=== PATIENT | female | born 1965 | race Hispanic/Latino ===

== ENCOUNTER 2017-08-04 22:00 | Emergency (ER) | payer BC ==
[~2017-08-04 22:00] MED LIST: CHOL500050 PO; CLON0.5T4 PO; FLUO40CA7 PO; FURO20TA4 PO; LETR2.5T6 PO; LEVO150T11 PO; LISI10TA7 PO; LORA10TA7 PO; METF500T6 PO; PREG50 PO
[2017-08-04 22:24] LABS: BASOPHILS % (AUTO) 0.7 % (0.0-5.0); EOSINOPHILS % (AUTO) 3.9 % (0.0-8.0); HEMATOCRIT 28.1 % (36-48); LYMPHOCYTES % (AUTO) 34.3 % (21.0-51.0); MEAN CORPUSCULAR HEMOGLOBIN 33.3 pg (27.0-33.0); MEAN CORPUSCULAR HGB CONC 35.6 g/dL (32.0-36.0); MEAN CORPUSCULAR VOLUME 93.5 fL (79-99); MONOCYTES % (AUTO) 9.8 % (3.0-13.0); NEUTROPHILS % (AUTO) 51.3 % (40.0-77.0); PLATELET COUNT (AUTO) 91 K/uL (130-400); RED CELL DISTRIBUTION WIDTH 14.6 % (11.0-15.5)
[2017-08-04 22:29] LABS: CREATININE 0.7 mg/dL (0.5-1.5); POTASSIUM 3.5 mmol/L (3.5-5.1)
[2017-08-04 22:30] LABS: INR 1.19 (0.85-1.15); PARTIAL THROMBOPLASTIN TIME 25.6 SEC (26.3-35.5); PROTHROMBIN TIME 12.5 SEC (9.6-11.6)
[2017-08-04] MEDS ORDERED: MAG HYDROX/AL HYDROX/SIMETH ES 30 ML SUSP UDCUP ONE (22:32)
[2017-08-04] MEDS ORDERED: LIDOCAINE HCL 2% VISCOUS 15 ML UDCUP ONE (22:32)
[2017-08-04] MEDS ORDERED: SODIUM CHLORIDE 0.9% 1000ML 1,000 ML IV ONE (22:32)
[2017-08-04 22:43] LABS: ALBUMIN 2.6 g/dL (3.5-5.0); BILIRUBIN,TOTAL 1.7 mg/dL (0.2-1.0); CREATINE KINASE MB 0.5 ng/mL (0.5-3.6); TOTAL PROTEIN, SERUM 6.9 g/dL (6.0-8.3)
[2017-08-04] MEDS ORDERED: ASPIRIN 325 MG TABLET ONE (22:55)
== END 2017-08-05 00:53 | disposition home or self-care (01) ==
LOC: EDH 22:00
DX: K21.9 Gastro-esophageal reflux disease without esophagitis (principal); K29.70 Gastritis, unspecified, without bleeding; M79.7 Fibromyalgia; M32.9 Systemic lupus erythematosus, unspecified; Z88.6 Allergy status to analgesic agent; Z85.3 Personal history of malignant neoplasm of breast; Z90.710 Acquired absence of both cervix and uterus
CPT/HCPCS: 36415; 71045; 80053; 82550; 82553; 83874; 83880; 84484 ×2; 85025; 85610; 85730; 93005; 94761; 96360; 96361; 99285; J7030

== ENCOUNTER 2019-06-14 20:59 | Inpatient (IN) | payer OTHER ==
[~2019-06-14] VITALS: Ht 167.6 cm; Wt 108.8 kg
[~2019-06-14 20:59] MED LIST changes: -CHOL500050 PO; -CLON0.5T4 PO; -FLUO40CA7 PO; -FURO20TA4 PO; -LETR2.5T6 PO; -LISI10TA7 PO; -LORA10TA7 PO; -METF500T6 PO; +PANT40TA PO; -PREG50 PO; +SUCR1TAB2 PO
[2019-06-14 21:26] LABS: BASOPHILS % (AUTO) 0.7 % (0.0-5.0); EOSINOPHILS % (AUTO) 3.7 % (0.0-8.0); LYMPHOCYTES % (AUTO) 27.1 % (21.0-51.0); MEAN CORPUSCULAR HEMOGLOBIN 32.7 pg (27.0-33.0); MEAN CORPUSCULAR HGB CONC 33.9 g/dL (32.0-36.0); MEAN CORPUSCULAR VOLUME 96.5 fL (79-99); MONOCYTES % (AUTO) 9.8 % (3.0-13.0); NEUTROPHILS % (AUTO) 58.5 % (40.0-77.0); PLATELET COUNT (AUTO) 57 K/uL (130-400); RED BLOOD CELL COUNT(AUTO) 3.73 MIL/uL (4.00-5.50); RED CELL DISTRIBUTION WIDTH 16.4 % (11.0-15.5); WHITE BLOOD COUNT (AUTO) 4.1 K/uL (4.8-10.8)
[2019-06-14 21:39] LABS: INR 1.19 (0.85-1.15); PARTIAL THROMBOPLASTIN TIME 28.1 SEC (26.3-35.5); PROTHROMBIN TIME 12.4 SEC (9.6-11.6)
[2019-06-14 21:53] LABS: CARBON DIOXIDE 22 mmol/L (21-32); CHLORIDE 109 mmol/L (101-111); CREATININE 0.7 mg/dL (0.5-1.5); GLOMERULAR FILTR. RATE CALC 92 mL/min (>60); GLUCOSE,RANDOM 147 mg/dL (70-105); POTASSIUM 3.5 mmol/L (3.5-5.1); SODIUM SERUM 142 mmol/L (136-145); UREA NITROGEN, BLOOD 10 mg/dL (7-18)
[2019-06-14 21:57] LABS: ALANINE AMINOTRANSFERASE 29 U/L (12-78); ALBUMIN 2.9 g/dL (3.5-5.0); ALCOHOL, BLOOD < 3 mg/dL (0-10); ASPARTATE AMINOTRANSFERASE 56 U/L (10-37); BILIRUBIN,TOTAL 3.4 mg/dL (0.2-1.0); CREATINE KINASE, TOTAL 190 U/L (21-232); LDL DIRECT 65 mg/dL (0-99); TOTAL PROTEIN, SERUM 7.2 g/dL (6.0-8.3)
[2019-06-14 22:08] LABS: APPEARANCE,URINE Cloudy (CLEAR); BILIRUBIN,URINE Small (NEGATIVE); COLOR,URINE Dark Yellow (YELLOW); GLUCOSE, URINE (UA) Negative (NEGATIVE); KETONES,URINE Trace mg/dL (NEGATIVE); LEUKOCYTE ESTERASE ,URINE Small (NEGATIVE); NITRATE,URINE Negative (NEGATIVE); OCCULT BLOOD,URINE Negative (NEGATIVE); PH,URINE 5.5 (5.0-8.0); PROTEIN,URINE Negative (NEGATIVE)
[2019-06-14 22:22] LABS: BACTERIA,URINE Moderate /HPF (None Seen); RBC,URINE 0-1 /HPF (0-1); WBC,URINE 0-1 /HPF (0-1)
[2019-06-14 22:23] LABS: MUCUS,URINE Few LPF (None Seen)
[2019-06-14 22:39] LABS: AMPHET/METH SCREEN,URINE NEGATIVE (NEGATIVE); BARBITURATE SCREEN, URINE NEGATIVE (NEGATIVE); BENZODIAZEPINES SCREEN,URINE NEGATIVE (NEGATIVE); CANNABINOID SCREEN,URINE NEGATIVE (NEGATIVE); COCAINE SCREEN,URINE NEGATIVE (NEGATIVE); OPIATE SCREEN,URINE NEGATIVE (NEGATIVE); PHENCYCLIDINE SCREEN,URINE NEGATIVE (NEGATIVE)
[2019-06-14] MEDS ORDERED: LACTULOSE 20 GM/30 ML UDCUP ONE (22:59)
[2019-06-15] VITALS (7 sets, daily range): BP systolic 124–155; BP diastolic 49–75
[2019-06-15] MEDS ORDERED: LACTULOSE 20 GM/30 ML UDCUP PO PRN
[2019-06-15] MEDS ORDERED: CEFTRIAXONE SODIUM 1 GM ONE (00:11)
[2019-06-15] MEDS ORDERED: LACTATED RINGERS 1000ML 1,000 ML IV ONE (00:11)
[2019-06-15] MEDS: LACTATED RINGERS 1000ML 1,000 ML IV SCH ×2 (06:26→20:57)
[2019-06-15 07:26] LABS: BASOPHILS % (AUTO) 0.9 % (0.0-5.0); EOSINOPHILS % (AUTO) 4.5 % (0.0-8.0); HEMATOCRIT 32.3 % (36-48); LYMPHOCYTES % (AUTO) 35.6 % (21.0-51.0); MEAN CORPUSCULAR HGB CONC 33.7 g/dL (32.0-36.0); MEAN CORPUSCULAR VOLUME 97.9 fL (79-99); MONOCYTES % (AUTO) 12.9 % (3.0-13.0); NEUTROPHILS % (AUTO) 45.8 % (40.0-77.0); PLATELET COUNT (AUTO) 47 K/uL (130-400); RED CELL DISTRIBUTION WIDTH 16.3 % (11.0-15.5); WHITE BLOOD COUNT (AUTO) 3.3 K/uL (4.8-10.8)
[2019-06-15] MEDS ORDERED: FLU VACC QS2019-20 36MOS UP/PF 60 MCG/0.5 ML ML IM ONE (07:30)
[2019-06-15 07:40] LABS: ALANINE AMINOTRANSFERASE 25 U/L (12-78); ALBUMIN 2.6 g/dL (3.5-5.0); ASPARTATE AMINOTRANSFERASE 47 U/L (10-37); BILIRUBIN,TOTAL 3.1 mg/dL (0.2-1.0); CARBON DIOXIDE 24 mmol/L (21-32); CHLORIDE 110 mmol/L (101-111); CHOLESTEROL 113 mg/dL (<200); CREATININE 0.6 mg/dL (0.5-1.5); GLOMERULAR FILTR. RATE CALC 110 mL/min (>60); GLUCOSE,RANDOM 84 mg/dL (70-105); HDL CHOLESTEROL 65 mg/dL (35-85); LDL DIRECT 57 mg/dL (0-99); POTASSIUM 3.1 mmol/L (3.5-5.1); SODIUM SERUM 144 mmol/L (136-145); TOTAL PROTEIN, SERUM 6.3 g/dL (6.0-8.3); TRIGLYCERIDES 27 mg/dL (30-200); UREA NITROGEN, BLOOD 9 mg/dL (7-18)
[2019-06-15] MEDS ORDERED: FLU VACC QS2019-20 36MOS UP/PF 60 MCG/0.5 ML ML IM SCH (07:45)
[2019-06-15 07:49] LABS: AMMONIA 86 umol/L (11-32)
[2019-06-15 08:22] LABS: HEMOGLOBIN A1C 4.4 % (4.0-6.0)
[2019-06-15] MEDS ORDERED: FAMOTIDINE/PF 20 MG/2 ML VIAL IV SCH (09:00)
[2019-06-15] MEDS: PANTOPRAZOLE SODIUM 40 MG TABLET.DR PO SCH (16:21)
[2019-06-15] MEDS: LACTULOSE 20 GM/30 ML UDCUP PO SCH ×3 (16:21→23:36)
[2019-06-15] MEDS: CEFTRIAXONE SODIUM 1 GM IVP SCH ×3 (16:21→23:36)
[2019-06-15] MEDS ORDERED: IOHEXOL-350 75 ML VIAL IV ONE (19:30)
[2019-06-15] MEDS ORDERED: IOHEXOL-350 50ML VIAL IV ONE (19:32)
[2019-06-15] MEDS ORDERED: POTASSIUM CHLORIDE 20 MEQ ERTAB PO ONE (21:04)
[2019-06-15] MEDS ORDERED: LIDOCAINE HCL-MPF 1% 2ML VIAL IV PRN (21:15)
[2019-06-15] MEDS ORDERED: POTASSIUM CHLORIDE 10% ELIXIR 20 MEQ/15 ML UDCUP PO PRN (21:15)
[2019-06-15] MEDS ORDERED: POTASSIUM CHLORIDE 20MEQ/100ML 100 ML IV PRN (21:15)
[2019-06-15] MEDS: POTASSIUM CHLORIDE 20 MEQ ERTAB PO PRN (23:36)
[2019-06-16] MEDS: POTASSIUM CHLORIDE 20 MEQ ERTAB PO PRN (01:10)
[2019-06-16] MEDS: LACTULOSE 20 GM/30 ML UDCUP PO SCH ×6 (03:30→23:38)
[2019-06-16 03:47] VITALS: BP 121/65
[2019-06-16 05:17] LABS: INR 1.26 (0.85-1.15); PARTIAL THROMBOPLASTIN TIME 30.8 SEC (26.3-35.5); PROTHROMBIN TIME 13.1 SEC (9.6-11.6)
[2019-06-16 05:29] LABS: ALBUMIN 2.4 g/dL (3.5-5.0); BILIRUBIN,TOTAL 3.2 mg/dL (0.2-1.0); CREATININE 0.6 mg/dL (0.5-1.5); POTASSIUM 3.6 mmol/L (3.5-5.1)
[2019-06-16 05:32] LABS: % IRON SATURATION 40.2 % (22-44)
[2019-06-16 05:36] LABS: AMMONIA 53 umol/L (11-32); CHOLESTEROL 103 mg/dL (<200); HDL CHOLESTEROL 89 mg/dL (35-85); LDL DIRECT 55 mg/dL (0-99); LIPASE 71 U/L (114-286); PHOSPHORUS 6.2 mg/dL (2.5-4.9); THYROID STIMULATING HORMONE 3.86 uIU/mL (0.36-3.74); TRIGLYCERIDES 26 mg/dL (30-200)
[2019-06-16 05:43] LABS: HEMOGLOBIN A1C 4.5 % (4.0-6.0)
[2019-06-16 05:47] LABS: B-TYPE NATRIURETIC PEPTIDE 26 pg/mL (0-100)
[2019-06-16 06:36] LABS: ERYTHROCYTE SEDIMENTATION RATE 30 MM/HR (0-30)
[2019-06-16 07:38] LABS: RAPID PLASMA REAGIN NONREACTIVE (NONREACTIVE)
[2019-06-16 07:39] LABS: CRP QUANTITATIVE < 2.00 mg/L (0.00-9.0)
[2019-06-16 07:55] VITALS: BP 132/66
--- NOTE | 2019-06-16 08:00 | NUR ---
PT AAOX 3 REVIEW PLAN OF CARE, DENIES ANY DISCOMFORT. BED LEVEL DOWN ,AND CALL LIGHT IN REACH,,
[2019-06-16] MEDS: PANTOPRAZOLE SODIUM 40 MG TABLET.DR PO SCH (08:05)
[2019-06-16 11:38] VITALS: BP 125/71
[2019-06-16] MEDS: CEFTRIAXONE SODIUM 1 GM IVP SCH (14:46)
[2019-06-16] MEDS: LACTATED RINGERS 1000ML 1,000 ML IV SCH ×2 (16:00→22:45)
[2019-06-16 16:21] VITALS: BP 127/68
--- NOTE | 2019-06-16 17:30 | NUR ---
cm note met with patient and spouse, lives with spouse, is independent with ambulation and adls, no dme. no home services. goes to [facility].for md, recently lost insurance due to no longer working, referred to [employer] for assist. and rx assist card given. dc plan is back home at co. no dc needs. Addendum: 06/16/19 at 1734 by DA GROVE CM Amended: Links added.
[2019-06-16 19:45] VITALS: BP 114/59
[2019-06-16 23:22] VITALS: BP 129/63
--- NOTE | 2019-06-17 00:01 | NUR ---
Telemetry called: Patient on Sinus Rhythm with pulse 72.
[2019-06-17] MEDS: CEFTRIAXONE SODIUM 1 GM IVP SCH ×2 (00:09→14:37)
[2019-06-17] MEDS ORDERED: IBUPROFEN 200 MG TAB PO ONE (00:30)
[2019-06-17] MEDS ORDERED: IBUPROFEN 400 MG TABLET ONE (00:44)
[2019-06-17 03:06] VITALS: BP 112/68
[2019-06-17] MEDS: LACTULOSE 20 GM/30 ML UDCUP PO SCH ×5 (03:49→20:30)
[2019-06-17 07:55] VITALS: BP 124/58
[2019-06-17] MEDS: PANTOPRAZOLE SODIUM 40 MG TABLET.DR PO SCH (08:06)
--- NOTE | 2019-06-17 09:50 | NUR ---
DR. SAHA HERE AND REVIEW PT. STATUS, . SPOKE WITH PT REAGARDING HER HISTORY AND CARE,
--- NOTE | 2019-06-17 09:55 | NUR ---
DR. ANN WAS CALLED , FOR THE GI CONSULTATION FOR HER LIVER STATUS.
[2019-06-17 11:29] VITALS: BP 112/52
--- NOTE | 2019-06-17 14:04 | NUR ---
CHART CHECK COMPLETED. Pt CURRENTLY ADMITTED SECONDARY TO HEPATIC ENCEPHALOPATHY R/O ACUTE ISCHEMIC STROKE. Pt WITH HIGH AMONIA LEVEL. Pt HAS A PAST MEDICAL HISTORY SIGNIFICANT FOR BREAST CA, FIBROMYALGIA, LUPUS, LEFT MASTECTOMY, HYPOTHYROIDISM, DEPRESSIVE DISORDER. PLEASE REQUEST FORMAL SKILLED SPEECH THERAPY EVALUATION IF Pt PRESENTS WITH +S/S OF ASPIRATION OF COUGH RESPONSE OR WET VOCAL QUALITY AT MEAL TIMES. Addendum: 06/17/19 at 1409 by YANICK VELA, [facility] Amended: Links added.
[2019-06-17 16:24] VITALS: BP 115/52
[2019-06-17 20:00] VITALS: BP 116/51
[2019-06-17] MEDS: LACTATED RINGERS 1000ML 1,000 ML IV SCH (20:30)
--- NOTE | 2019-06-17 23:29 | NUR ---
GI CONSULT DR. ANN MADE AWARE OF CONSULT AND SAW PATIENT. MD ORDERED FOR PATIENT TO HAVE EGD 06/18/2019, NPO AFTER BREAKFAST, VITAMIN B12, AND IRON PANEL.
[2019-06-18] VITALS (27 sets, daily range): BP systolic 90–122; BP diastolic 35–73
[2019-06-18] MEDS: LACTULOSE 20 GM/30 ML UDCUP PO SCH ×6 (00:03→23:30)
[2019-06-18] MEDS: CEFTRIAXONE SODIUM 1 GM IVP SCH ×2 (01:14→12:52)
[2019-06-18 05:04] LABS: BASOPHILS % (AUTO) 0.9 % (0.0-5.0); LYMPHOCYTES % (AUTO) 28.1 % (21.0-51.0); MEAN CORPUSCULAR HEMOGLOBIN 32.9 pg (27.0-33.0); MEAN CORPUSCULAR HGB CONC 33.5 g/dL (32.0-36.0); MEAN CORPUSCULAR VOLUME 98.1 fL (79-99); MONOCYTES % (AUTO) 10.2 % (3.0-13.0); NEUTROPHILS % (AUTO) 55.5 % (40.0-77.0); PLATELET COUNT (AUTO) 56 K/uL (130-400); RED BLOOD CELL COUNT(AUTO) 3.77 MIL/uL (4.00-5.50); RED CELL DISTRIBUTION WIDTH 16.2 % (11.0-15.5); WHITE BLOOD COUNT (AUTO) 3.4 K/uL (4.8-10.8)
[2019-06-18 05:16] LABS: ALANINE AMINOTRANSFERASE 33 U/L (12-78); ALBUMIN 3.1 g/dL (3.5-5.0); AMMONIA 35 umol/L (11-32); ASPARTATE AMINOTRANSFERASE 65 U/L (10-37); BILIRUBIN,TOTAL 3.2 mg/dL (0.2-1.0); CARBON DIOXIDE 27 mmol/L (21-32); CHLORIDE 106 mmol/L (101-111); CREATININE 0.7 mg/dL (0.5-1.5); GLOMERULAR FILTR. RATE CALC 92 mL/min (>60); GLUCOSE,RANDOM 88 mg/dL (70-105); PHOSPHORUS 3.9 mg/dL (2.5-4.9); POTASSIUM 3.4 mmol/L (3.5-5.1); SODIUM SERUM 140 mmol/L (136-145); UREA NITROGEN, BLOOD 5 mg/dL (7-18)
[2019-06-18 05:19] LABS: INR 1.72 (0.85-1.15); PARTIAL THROMBOPLASTIN TIME 48.1 SEC (26.3-35.5); PROTHROMBIN TIME 17.7 SEC (9.6-11.6)
[2019-06-18 05:34] LABS: FERRITIN 54 ng/mL (15-150); IRON, SERUM 120 mcg/dL (50-170)
[2019-06-18] MEDS: POTASSIUM CHLORIDE 20 MEQ ERTAB PO PRN (07:25)
[2019-06-18] MEDS: PANTOPRAZOLE SODIUM 40 MG TABLET.DR PO SCH (07:29)
[2019-06-18 08:11] LABS: HEPATITIS A ANTIBODY IGM Negative (Negative); HEPATITIS B CORE IGM Negative (Negative); HEPATITIS Bs ANTIGEN SCREEN P Negative (Negative)
--- NOTE | 2019-06-18 12:53 | NUR ---
TO GI LAB FOR A EGD PROCEDURE,
[2019-06-18] MEDS ORDERED: PROPOFOL 10 MG/ML 20ML VIAL IV ONE ×3 (14:05→14:14)
--- NOTE | 2019-06-18 15:00 | NUR ---
PT BACK FROM GI LAB, PTAAO X 3 REVIEW POSTOP V/S AND ORDERS TO FOLLOW HOB UP .PT HUNGRY ORDER DIET. AND CALL LIGHT IN REACH ,DENIES ANY GASTRIC PAIN,
--- NOTE | 2019-06-18 17:30 | NUR ---
TOLERATE DIET WELL , DENIES ANY DISCOMFORT. CALL LIGHT IN REACH.
[2019-06-19] VITALS: BP 120/57
[2019-06-19] MEDS: LACTULOSE 20 GM/30 ML UDCUP PO SCH ×4 (03:30→15:43)
[2019-06-19 03:53] VITALS: BP 123/63
[2019-06-19] MEDS: LACTATED RINGERS 1000ML 1,000 ML IV SCH (04:00)
[2019-06-19 08:00] VITALS: BP 118/52
[2019-06-19] MEDS: PANTOPRAZOLE SODIUM 40 MG TABLET.DR PO SCH (10:22)
[2019-06-19] MEDS: CEFTRIAXONE SODIUM 1 GM IVP SCH ×2 (10:27)
[2019-06-19 11:38] VITALS: BP 116/57
[2019-06-19] MEDS ORDERED: DEXTROSE 50%-WATER 50 ML DISP.SYRIN IV PRN (15:00)
[2019-06-19] MEDS ORDERED: GLUCAGON 1MG KIT 1 MG ML IM PRN (15:00)
[2019-06-19 16:00] VITALS: BP 131/65
[2019-06-19] MEDS ORDERED: INSULIN HUMULIN R 100 UNIT/ML 3ML SQ SCH (16:30)
--- NOTE | 2019-06-19 17:04 | NUR ---
PT D/C HOME BY ADMIT & D/C NURSE DANK PATIENT WHILE BEING D/C HOME WAS CALMED, NO DISTRESS, AAOX3. FEMALE FRIEND AT BEDSIDE.
== END 2019-06-19 16:50 | disposition home or self-care (01) | DRG 441 ==
LOC: EDH 20:59 → EDHIP 21:00 → 3AH 06-15 00:44
PROVIDERS: ADMIT Internal Medicine; ATTEND Internal Medicine
PROC: 0DJ08ZZ Inspection of Upper Intestinal Tract, Via Natural or Artificial Opening Endoscopic (ICD-10-PCS; principal; 2019-06-18)
PROC: 3E02340 Introduction of Influenza Vaccine into Muscle, Percutaneous Approach (ICD-10-PCS; 2019-06-18)
DX: K72.00 Acute and subacute hepatic failure without coma (principal); K31.82 Dieulafoy lesion (hemorrhagic) of stomach and duodenum; D62 Acute posthemorrhagic anemia; D68.4 Acquired coagulation factor deficiency; K74.60 Unspecified cirrhosis of liver; K76.0 Fatty (change of) liver, not elsewhere classified; M79.7 Fibromyalgia; E03.9 Hypothyroidism, unspecified; F32.9 Major depressive disorder, single episode, unspecified; D69.6 Thrombocytopenia, unspecified; E53.8 Deficiency of other specified B group vitamins; M32.9 Systemic lupus erythematosus, unspecified; K29.00 Acute gastritis without bleeding; K21.0 Gastro-esophageal reflux disease with esophagitis; Z92.21 Personal history of antineoplastic chemotherapy; Z85.3 Personal history of malignant neoplasm of breast; Z87.11 Personal history of peptic ulcer disease; Z90.12 Acquired absence of left breast and nipple; Z90.710 Acquired absence of both cervix and uterus; Z98.84 Bariatric surgery status; Z23 Encounter for immunization; Z83.3 Family history of diabetes mellitus; Z82.49 Family history of ischemic heart disease and other diseases of the circulatory system
CPT/HCPCS: 36415; 43255; 70450; 70551; 71045; 71260; 74177; 80053; 80061; 80074; 80305; 81001; 82103; 82104; 82140; 82270; 82550; 82607; 82728; 82948; 83036; 83516; 83540; 83550; 83605; 83690; 83721; 83735; 83880; 84100; 84145; 84443; 84484; 85025; 85610; 85651; 85730; 86038; 86140; 86215; 86235; 86255; 86592; 86677; 86701; 87390; 93005; 93306; 99291; A4606; G0378; G0480; J0696; J2704; J3490; J7030; J7120; Q2035; Q9967

== ENCOUNTER 2019-07-15 15:31 | Inpatient (IN) | payer OTHER ==
[~2019-07-15] VITALS: Ht 167.6 cm; Wt 112.0 kg
[2019-07-15] MEDS ORDERED: ASPIRIN 325 MG TABLET ONE (16:04)
[2019-07-15 16:10] LABS: BASOPHILS % (AUTO) 0.7 % (0.0-5.0); EOSINOPHILS % (AUTO) 5.2 % (0.0-8.0); HEMATOCRIT 28.9 % (36-48); LYMPHOCYTES % (AUTO) 24.5 % (21.0-51.0); MEAN CORPUSCULAR HEMOGLOBIN 32.6 pg (27.0-33.0); MEAN CORPUSCULAR HGB CONC 32.9 g/dL (32.0-36.0); MEAN CORPUSCULAR VOLUME 99.3 fL (79-99); MONOCYTES % (AUTO) 10.8 % (3.0-13.0); NEUTROPHILS % (AUTO) 58.8 % (40.0-77.0); PLATELET COUNT (AUTO) 65 K/uL (130-400); RED BLOOD CELL COUNT(AUTO) 2.91 MIL/uL (4.00-5.50); RED CELL DISTRIBUTION WIDTH 15.2 % (11.0-15.5); WHITE BLOOD COUNT (AUTO) 3.1 K/uL (4.8-10.8)
[2019-07-15 16:19] LABS: CREATININE 0.8 mg/dL (0.5-1.5); POTASSIUM 3.7 mmol/L (3.5-5.1)
[2019-07-15 16:24] LABS: ALBUMIN 2.4 g/dL (3.5-5.0); TOTAL PROTEIN, SERUM 6.3 g/dL (6.0-8.3)
[2019-07-15 16:51] LABS: B-TYPE NATRIURETIC PEPTIDE 132 pg/mL (0-100)
[2019-07-15] MEDS ORDERED: LACTULOSE 20 GM/30 ML UDCUP ONE (17:16)
[2019-07-15] MEDS ORDERED: NITROGLYCERIN 0.4 MG SL TAB SL PRN (17:45)
[2019-07-15] MEDS ORDERED: HYDRALAZINE HCL 20 MG/ML VIAL IV PRN (17:45)
[2019-07-15] MEDS ORDERED: ACETAMINOPHEN 325 MG TAB PO PRN (17:45)
[2019-07-15] MEDS ORDERED: ONDANSETRON HCL 4 MG/2 ML VIAL IV PRN (17:45)
[2019-07-15 17:57] LABS: APPEARANCE,URINE Clear (CLEAR); BILIRUBIN,URINE Negative (NEGATIVE); COLOR,URINE Yellow (YELLOW); GLUCOSE, URINE (UA) Negative (NEGATIVE); KETONES,URINE Negative (NEGATIVE); LEUKOCYTE ESTERASE ,URINE Negative (NEGATIVE); NITRATE,URINE Negative (NEGATIVE); OCCULT BLOOD,URINE Negative (NEGATIVE); PH,URINE 5.5 (5.0-8.0); PROTEIN,URINE Negative (NEGATIVE)
[2019-07-15 18:21] LABS: AMPHET/METH SCREEN,URINE NEGATIVE (NEGATIVE); BARBITURATE SCREEN, URINE NEGATIVE (NEGATIVE); BENZODIAZEPINES SCREEN,URINE NEGATIVE (NEGATIVE); CANNABINOID SCREEN,URINE NEGATIVE (NEGATIVE); COCAINE SCREEN,URINE NEGATIVE (NEGATIVE); OPIATE SCREEN,URINE NEGATIVE (NEGATIVE); PHENCYCLIDINE SCREEN,URINE NEGATIVE (NEGATIVE)
[2019-07-15] MEDS ORDERED: ONDANSETRON HCL 4 MG/2 ML VIAL IVP PRN (18:30)
[2019-07-15 20:36] LABS: CHOLESTEROL 89 mg/dL (<200); CREATINE KINASE, TOTAL 45 U/L (21-232); HDL CHOLESTEROL 58 mg/dL (35-85); LDL DIRECT 46 mg/dL (0-99); MYOGLOBIN 32 ng/mL (10-92); TRIGLYCERIDES 31 mg/dL (30-200); TROPONIN I < 0.04 ng/mL (0.00-0.06)
[2019-07-15] MEDS ORDERED: LACTULOSE 20 GM/30 ML UDCUP PO SCH (21:00)
[2019-07-16] MEDS ORDERED: ATORVASTATIN CALCIUM 40 MG TABLET ONE (00:04)
[2019-07-16] MEDS ORDERED: ACETAMINOPHEN 325 MG TAB ONE (00:04)
[2019-07-16] MEDS ORDERED: DEXTROSE 5%-LACTATED RINGERS 1,000 ML IV ONE (04:09)
[2019-07-16 05:27] LABS: HEMATOCRIT 26.9 % (36-48); MEAN CORPUSCULAR HGB CONC 33.5 g/dL (32.0-36.0); MEAN CORPUSCULAR VOLUME 98.5 fL (79-99); PLATELET COUNT (AUTO) 60 K/uL (130-400); RED BLOOD CELL COUNT(AUTO) 2.73 MIL/uL (4.00-5.50); RED CELL DISTRIBUTION WIDTH 15.2 % (11.0-15.5); WHITE BLOOD COUNT (AUTO) 3.3 K/uL (4.8-10.8)
[2019-07-16 05:53] LABS: CARBON DIOXIDE 24 mmol/L (21-32); CHLORIDE 113 mmol/L (101-111); CHOLESTEROL 77 mg/dL (<200); CREATINE KINASE, TOTAL 113 U/L (21-232); CREATININE 0.8 mg/dL (0.5-1.5); GLOMERULAR FILTR. RATE CALC 79 mL/min (>60); GLUCOSE,RANDOM 88 mg/dL (70-105); HDL CHOLESTEROL 43 mg/dL (35-85); LDL DIRECT 39 mg/dL (0-99); MYOGLOBIN 43 ng/mL (10-92); POTASSIUM 3.4 mmol/L (3.5-5.1); SODIUM SERUM 143 mmol/L (136-145); TRIGLYCERIDES 29 mg/dL (30-200); TROPONIN I < 0.04 ng/mL (0.00-0.06); UREA NITROGEN, BLOOD 8 mg/dL (7-18)
[2019-07-16 06:04] LABS: AMMONIA 80 umol/L (11-32)
[2019-07-16] MEDS ORDERED: POTASSIUM CHLORIDE 10% ELIXIR 20 MEQ/15 ML UDCUP PO PRN (08:00)
[2019-07-16] MEDS ORDERED: LIDOCAINE HCL-MPF 1% 2ML VIAL IJ PRN (08:00)
[2019-07-16] MEDS ORDERED: POTASSIUM CHLORIDE 20MEQ/100ML 100 ML IV PRN (08:00)
[2019-07-16] MEDS ORDERED: METOPROLOL TARTRATE 25 MG TAB PO SCH (09:00)
[2019-07-16] MEDS ORDERED: PANTOPRAZOLE SODIUM 40 MG TABLET.DR ONE (09:09)
[2019-07-16] MEDS ORDERED: ASPIRIN 81MG TAB.CHEW ONE (09:09)
[2019-07-16] MEDS ORDERED: LACTULOSE 20 GM/30 ML UDCUP ONE (09:09)
[2019-07-16] MEDS ORDERED: CEFTRIAXONE SODIUM 1 GM ONE (09:09)
[2019-07-16 11:43] VITALS: BP 141/78
[2019-07-16] MEDS ORDERED: POTASSIUM CHLORIDE 20 MEQ ERTAB PO ONE (12:13)
[2019-07-16] MEDS: PANTOPRAZOLE 40 MG/VIAL IVP SCH (14:00)
[2019-07-16] MEDS: ATORVASTATIN CALCIUM 10 MG TABLET PO SCH ×2 (14:00→21:00)
[2019-07-16] MEDS: ASPIRIN 81MG TAB.CHEW PO SCH (14:00)
[2019-07-16] MEDS: CEFTRIAXONE SODIUM 1 GM IVP SCH ×2 (14:00→17:49)
[2019-07-16] MEDS: DEXTROSE 5%-LACTATED RINGERS 1,000 ML IV SCH ×2 (14:00→14:44)
[2019-07-16] MEDS: LEVOTHYROXINE 100 MCG TABLET PO SCH (14:00)
[2019-07-16] MEDS: LACTULOSE 20 GM/30 ML UDCUP PO SCH ×3 (14:00→20:57)
[2019-07-16 14:11] VITALS: BP 151/77
[2019-07-16] MEDS ORDERED: PREN-66 PO (14:19)
[2019-07-16] MEDS ORDERED: LACT10PA5 PO (14:19)
[2019-07-16] MEDS ORDERED: ASPI-555 PO (14:19)
[2019-07-16] MEDS ORDERED: METO25TA6 PO (14:39)
[2019-07-16] MEDS ORDERED: DULO30CA52 PO (14:39)
[2019-07-16] MEDS ORDERED: PANT40TA25 PO (14:39)
[2019-07-16] MEDS ORDERED: CYAN250014 PO (14:39)
[2019-07-16] MEDS ORDERED: ATOR40TA69 PO (14:39)
[2019-07-16 14:40] VITALS: BP 118/57
[2019-07-16] MEDS: POTASSIUM CHLORIDE 20 MEQ ERTAB PO PRN (14:43)
[2019-07-16 14:45] VITALS: BP 142/88
[2019-07-16 15:28] LABS: % IRON SATURATION 17.8 % (22-44)
--- NOTE | 2019-07-16 16:52 | NUR ---
INITIAL Patient lives with spouse, Audie Garza, [phone]. Another emergency contact is sister, Jazzy Mckeon, [phone]. No home services or DME. Patient requires assistance with ADL's and no longer drives. PCP is Dr. Pau Becerril. Pharmacy is [facility] located in [place]. DCP is home. Patient has no insurance or benefits. She is a [place] citizen and has worked. Patient was provided with community resources for post hospitalization follow up and Good RX card for prescriptions during last admission. Spouse stated they did not need another packet or Good RX card at this time. SW did educated spouse on [email or web address] $4 medication program and [facility] $5 medication program. Patient is being assisted by [employer] for financial matters. As per spouse, patient has appointment with [employer] for disability on 07/22/2019 at 9:30am. Addendum: 07/16/19 at 1653 by ALPHONSO RUGGIERO Amended: Links added.
[2019-07-16 20:04] VITALS: BP 115/60
[2019-07-16] MEDS: DULOXETINE HCL 30 MG CAP PO SCH (20:53)
[2019-07-16] MEDS: CYANOCOBALAMIN (VITAMIN B-12) 1,000 MCG TABLET PO SCH (20:53)
[2019-07-16] MEDS ORDERED: ATORVASTATIN CALCIUM 40 MG TABLET PO SCH (21:00)
[2019-07-16] MEDS ORDERED: DULOXETINE HCL 30 MG CAP PO SCH (21:00)
[2019-07-17] VITALS (7 sets, daily range): BP systolic 100–135; BP diastolic 49–80
[2019-07-17] MEDS: DEXTROSE 5%-LACTATED RINGERS 1,000 ML IV SCH ×2 (05:26→18:00)
[2019-07-17] MEDS: LEVOTHYROXINE 100 MCG TABLET PO SCH ×2 (05:27→05:52)
[2019-07-17] MEDS: CEFTRIAXONE SODIUM 1 GM IVP SCH ×2 (05:50→17:59)
[2019-07-17] MEDS ORDERED: LEVOTHYROXINE 150 MCG TABLET PO SCH (06:00)
[2019-07-17 06:55] LABS: CREATININE 0.7 mg/dL (0.5-1.5); MAGNESIUM 1.8 mg/dL (1.80-2.40); POTASSIUM 3.6 mmol/L (3.5-5.1)
[2019-07-17] MEDS: PANTOPRAZOLE 40 MG/VIAL IVP SCH (08:39)
[2019-07-17] MEDS: FERROUS FUMARATE 324 MG TABLET PO SCH (08:40)
[2019-07-17] MEDS: ASPIRIN 81 MG EC TAB PO SCH (08:40)
[2019-07-17] MEDS: CYANOCOBALAMIN (VITAMIN B-12) 1,000 MCG TABLET PO SCH ×2 (08:40→20:50)
[2019-07-17] MEDS: LACTULOSE 20 GM/30 ML UDCUP PO SCH ×3 (08:41→20:50)
[2019-07-17] MEDS: ASPIRIN 81MG TAB.CHEW PO SCH (08:41)
[2019-07-17] MEDS: ATORVASTATIN CALCIUM 10 MG TABLET PO SCH (20:50)
[2019-07-17] MEDS: DULOXETINE HCL 30 MG CAP PO SCH (20:50)
--- NOTE | 2019-07-17 22:30 | NUR ---
CHEST PAIN PATIENT COMPLAINS OF CHEST PAIN THAT RADIATES TO BACK WITH NAUSEA. MEDICATED PER MARS FOR NAUSEA AND CHEST PAIN. NITRO X1 GIVEN, EKG DONE. GHAZALA PROCTOR NOTIFIED AND AWARE. NEW ORDERS RECEIVED AND CARRIED OUT. VITALS STABLE. BLOOD PRESSURE 134/60, P75, R 19, AFEBRILE. CARDIAC ENZYMES DONE. PENDING RESULTS TO BE CALLED IN TO HOSPITALIST. PATIENT AWARE. NO FURTHER COMPLAINTS OF CHEST PAIN. WILL CONTINUE TO BE OBSERVED. CALL LIGHT WITHIN REACH. Addendum: 07/17/19 at 2307 by MILLY MONGE RN RN Amended: Links added.
[2019-07-17 23:24] LABS: CREATINE KINASE, TOTAL 117 U/L (21-232); MYOGLOBIN 33 ng/mL (10-92); TROPONIN I < 0.04 ng/mL (0.00-0.06)
--- NOTE | 2019-07-18 | NUR ---
ROUNDS PATIENT RESTING IN BED WITH OU CLOSED. EASILY AROUSED. NO COMPLAINTS OF PAIN AND OR CHEST PAIN. CARDIAC ENZYMES NEGATIVE AND REPORTED TO HOSPITALIST. PATIENT ALREADY ON A STATIN AND ASA EC. MARINE DRILLER IN PLACE. NORMAL SINUS RHYTHM. NO SIGNS OF DISTRESS NOTED. RESP EVEN AND UNLABORED. NO SOB NOTED. VITALS STABLE. AFEBRILE. CALL LIGHT WITHIN REACH. WILL CONTINUE TO BE OBSERVED. HOSPITALIST AWARE AND HERE TO SEE ALL RESULTS. NEW ORDERS RECEIVED AND CARRIED OUT. Addendum: 07/18/19 at 0724 by MILLY MONGE RN RN Amended: Links added.
[2019-07-18 03:30] VITALS: BP 113/50
[2019-07-18 05:43] LABS: CREATINE KINASE, TOTAL 110 U/L (21-232); MYOGLOBIN 38 ng/mL (10-92); TROPONIN I < 0.04 ng/mL (0.00-0.06)
[2019-07-18 05:45] LABS: BASOPHILS % (AUTO) 0.7 % (0.0-5.0); EOSINOPHILS % (AUTO) 5.5 % (0.0-8.0); LYMPHOCYTES % (AUTO) 24.6 % (21.0-51.0); MEAN CORPUSCULAR HGB CONC 32.6 g/dL (32.0-36.0); MEAN CORPUSCULAR VOLUME 98.2 fL (79-99); MONOCYTES % (AUTO) 11.4 % (3.0-13.0); NEUTROPHILS % (AUTO) 57.4 % (40.0-77.0); PLATELET COUNT (AUTO) 49 K/uL (130-400); RED BLOOD CELL COUNT(AUTO) 2.75 MIL/uL (4.00-5.50); WHITE BLOOD COUNT (AUTO) 2.7 K/uL (4.8-10.8)
[2019-07-18] MEDS: LEVOTHYROXINE 100 MCG TABLET PO SCH (05:56)
[2019-07-18] MEDS: CEFTRIAXONE SODIUM 1 GM IVP SCH ×2 (05:56→18:15)
[2019-07-18 06:39] LABS: CREATININE 0.8 mg/dL (0.5-1.5); POTASSIUM 3.7 mmol/L (3.5-5.1)
[2019-07-18] MEDS: DEXTROSE 5%-LACTATED RINGERS 1,000 ML IV SCH ×2 (08:06→23:30)
[2019-07-18 08:14] VITALS: BP 107/47
[2019-07-18 08:23] LABS: BAND NEUTROPHILS % (MANUAL) 1 % (0-2); BASOPHILS % (MANUAL) 1 % (0-2); EOSINOPHILS % (MANUAL) 8 % (1-6); LYMPHOCYTES % (MANUAL) 28 % (22-44); MONOCYTES % (MANUAL) 5 % (2-9); SEGMENTED NEUTROPHILS % 57 % (40-70)
[2019-07-18 08:24] LABS: MAN.DIFF COMMENT-IMPRESSION MANUAL DIFFERENTIAL
[2019-07-18] MEDS: ASPIRIN 81MG TAB.CHEW PO SCH (09:00)
[2019-07-18] MEDS: ASPIRIN 81 MG EC TAB PO SCH (09:05)
[2019-07-18] MEDS: LACTULOSE 20 GM/30 ML UDCUP PO SCH ×3 (09:05→20:48)
[2019-07-18] MEDS: FERROUS FUMARATE 324 MG TABLET PO SCH (09:05)
[2019-07-18] MEDS: PANTOPRAZOLE 40 MG/VIAL IVP SCH (09:05)
[2019-07-18] MEDS: CYANOCOBALAMIN (VITAMIN B-12) 1,000 MCG TABLET PO SCH ×2 (09:05→20:48)
[2019-07-18 11:29] VITALS: BP 122/54
[2019-07-18 16:27] VITALS: BP 115/58
[2019-07-18 19:24] VITALS: BP 120/50
[2019-07-18] MEDS: DULOXETINE HCL 30 MG CAP PO SCH (20:48)
[2019-07-18] MEDS: ATORVASTATIN CALCIUM 10 MG TABLET PO SCH (20:48)
[2019-07-18 23:21] VITALS: BP 110/50
--- NOTE | 2019-07-19 00:45 | NUR ---
ROUNDS PATIENT AWAKE AND ALERT IN BED TALKING ON CELLPHONE. NO COMPLAINTS OF PAIN VOICED. RESP EVEN AND UNLABORED. NO SOB NOTED. ON ROOM AIR. VITALS STABLE. AFEBRILE. IN GOOD SPIRITS. WILL CONTINUE TO BE OBSERVED. CALL LIGHT WITHIN REACH. Addendum: 07/19/19 at 0531 by MILLY MONGE RN RN Amended: Links added.
[2019-07-19 03:26] VITALS: BP 128/59
[2019-07-19] MEDS: CEFTRIAXONE SODIUM 1 GM IVP SCH ×2 (05:00→17:49)
[2019-07-19] MEDS: LEVOTHYROXINE 100 MCG TABLET PO SCH (05:00)
[2019-07-19 08:00] VITALS: BP 115/52
[2019-07-19 08:29] LABS: BASOPHILS % (AUTO) 0.9 % (0.0-5.0); EOSINOPHILS % (AUTO) 7.3 % (0.0-8.0); HEMATOCRIT 29.2 % (36-48); LYMPHOCYTES % (AUTO) 25.6 % (21.0-51.0); MEAN CORPUSCULAR HEMOGLOBIN 32.1 pg (27.0-33.0); MEAN CORPUSCULAR HGB CONC 32.2 g/dL (32.0-36.0); MEAN CORPUSCULAR VOLUME 99.7 fL (79-99); NEUTROPHILS % (AUTO) 57.2 % (40.0-77.0); PLATELET COUNT (AUTO) 44 K/uL (130-400); RED BLOOD CELL COUNT(AUTO) 2.93 MIL/uL (4.00-5.50); RED CELL DISTRIBUTION WIDTH 15.2 % (11.0-15.5); WHITE BLOOD COUNT (AUTO) 2.3 K/uL (4.8-10.8)
[2019-07-19 08:36] LABS: CREATININE 0.8 mg/dL (0.5-1.5); POTASSIUM 3.3 mmol/L (3.5-5.1)
[2019-07-19] MEDS: ASPIRIN 81 MG EC TAB PO SCH (09:00)
[2019-07-19] MEDS: CYANOCOBALAMIN (VITAMIN B-12) 1,000 MCG TABLET PO SCH ×2 (09:01→20:08)
[2019-07-19] MEDS: FERROUS FUMARATE 324 MG TABLET PO SCH (09:01)
[2019-07-19] MEDS: LACTULOSE 20 GM/30 ML UDCUP PO SCH ×3 (09:01→20:07)
[2019-07-19] MEDS: ASPIRIN 81MG TAB.CHEW PO SCH (09:01)
[2019-07-19] MEDS: PANTOPRAZOLE 40 MG/VIAL IVP SCH (09:01)
[2019-07-19 09:17] LABS: EOSINOPHILS % (MANUAL) 5 % (1-6); LYMPHOCYTES % (MANUAL) 21 % (22-44); MAN.DIFF COMMENT-IMPRESSION MANUAL DIFFERENTIAL; MONOCYTES % (MANUAL) 10 % (2-9); SEGMENTED NEUTROPHILS % 64 % (40-70)
[2019-07-19 09:20] LABS: PLATELET MORPHOLOGY COMMENT MARKED DECREASE
[2019-07-19 12:00] VITALS: BP 118/59
[2019-07-19] MEDS: POTASSIUM CHLORIDE 20 MEQ ERTAB PO PRN ×3 (12:00→20:08)
[2019-07-19 16:00] VITALS: BP 110/54
[2019-07-19 20:04] VITALS: BP 115/53
[2019-07-19] MEDS: DULOXETINE HCL 30 MG CAP PO SCH (20:08)
[2019-07-19] MEDS: ATORVASTATIN CALCIUM 10 MG TABLET PO SCH (20:08)
[2019-07-20 00:04] VITALS: BP 114/54
[2019-07-20] MEDS: DEXTROSE 5%-LACTATED RINGERS 1,000 ML IV SCH ×2 (01:23→21:14)
[2019-07-20 04:00] VITALS: BP 103/50
[2019-07-20] MEDS: CEFTRIAXONE SODIUM 1 GM IVP SCH ×2 (06:10→18:37)
[2019-07-20] MEDS: LEVOTHYROXINE 100 MCG TABLET PO SCH (06:11)
[2019-07-20 08:00] VITALS: BP 104/57
[2019-07-20] MEDS: PANTOPRAZOLE 40 MG/VIAL IVP SCH (08:03)
[2019-07-20] MEDS: ASPIRIN 81 MG EC TAB PO SCH (08:04)
[2019-07-20] MEDS: FERROUS FUMARATE 324 MG TABLET PO SCH (08:04)
[2019-07-20] MEDS: CYANOCOBALAMIN (VITAMIN B-12) 1,000 MCG TABLET PO SCH ×2 (08:04→21:11)
[2019-07-20] MEDS: ASPIRIN 81MG TAB.CHEW PO SCH (08:12)
[2019-07-20] MEDS: LACTULOSE 20 GM/30 ML UDCUP PO SCH ×3 (08:38→18:38)
[2019-07-20 09:06] LABS: CREATININE 0.7 mg/dL (0.5-1.5); MAGNESIUM 1.7 mg/dL (1.80-2.40); POTASSIUM 3.8 mmol/L (3.5-5.1)
[2019-07-20 12:00] VITALS: BP 114/63
[2019-07-20 16:00] VITALS: BP 140/74
[2019-07-20 20:00] VITALS: BP 122/50
[2019-07-20] MEDS: DULOXETINE HCL 30 MG CAP PO SCH (21:11)
[2019-07-20] MEDS: ATORVASTATIN CALCIUM 10 MG TABLET PO SCH (21:12)
[2019-07-21] VITALS: BP 98/49
[2019-07-21 04:00] VITALS: BP 103/53
[2019-07-21 06:56] LABS: BASOPHILS % (AUTO) 0.8 % (0.0-5.0); EOSINOPHILS % (AUTO) 7.9 % (0.0-8.0); HEMATOCRIT 26.2 % (36-48); LYMPHOCYTES % (AUTO) 27.6 % (21.0-51.0); MEAN CORPUSCULAR HEMOGLOBIN 32.1 pg (27.0-33.0); MEAN CORPUSCULAR HGB CONC 32.8 g/dL (32.0-36.0); MEAN CORPUSCULAR VOLUME 97.8 fL (79-99); NEUTROPHILS % (AUTO) 50.7 % (40.0-77.0); PLATELET COUNT (AUTO) 41 K/uL (130-400); RED BLOOD CELL COUNT(AUTO) 2.68 MIL/uL (4.00-5.50); RED CELL DISTRIBUTION WIDTH 14.9 % (11.0-15.5); WHITE BLOOD COUNT (AUTO) 2.4 K/uL (4.8-10.8)
[2019-07-21] MEDS: CEFTRIAXONE SODIUM 1 GM IVP SCH (07:25)
[2019-07-21] MEDS: LEVOTHYROXINE 100 MCG TABLET PO SCH (07:25)
[2019-07-21 07:43] LABS: EOSINOPHILS % (MANUAL) 5 % (1-6); LYMPHOCYTES % (MANUAL) 22 % (22-44); MAN.DIFF COMMENT-IMPRESSION MANUAL DIFFERENTIAL; MONOCYTES % (MANUAL) 4 % (2-9); PLATELET MORPHOLOGY COMMENT MARKED DECREASE; SEGMENTED NEUTROPHILS % 69 % (40-70)
[2019-07-21 08:00] VITALS: BP 133/78
[2019-07-21 08:08] LABS: CREATININE 0.7 mg/dL (0.5-1.5); MAGNESIUM 1.9 mg/dL (1.80-2.40); POTASSIUM 3.7 mmol/L (3.5-5.1)
[2019-07-21] MEDS: ASPIRIN 81 MG EC TAB PO SCH (09:00)
[2019-07-21] MEDS: PANTOPRAZOLE 40 MG/VIAL IVP SCH (09:10)
[2019-07-21] MEDS: ASPIRIN 81MG TAB.CHEW PO SCH (09:10)
[2019-07-21] MEDS: CYANOCOBALAMIN (VITAMIN B-12) 1,000 MCG TABLET PO SCH (09:10)
[2019-07-21] MEDS: FERROUS FUMARATE 324 MG TABLET PO SCH (09:10)
[2019-07-21] MEDS: LACTULOSE 20 GM/30 ML UDCUP PO SCH (09:11)
[2019-07-21] MEDS ORDERED: PANTOPRAZOLE SODIUM 40 MG TABLET.DR PO SCH (09:30)
[2019-07-21 12:00] VITALS: BP 137/70
[2019-07-21] MEDS ORDERED: LACT PO (12:48)
--- NOTE | 2019-07-21 14:33 | NUR ---
d/c instructions given to patient with emphasis on cirrhosis and atypical chest pain; pt instructed to titrate lactulose to 3 to 4 bm's daily and f/u with dr arana and pcp; pt stated understanding of all instructions; iv access removed; pt here to take her home.
== END 2019-07-21 15:00 | disposition home or self-care (01) | DRG 443 ==
LOC: EDH 15:31 → EDHIP 15:32 → OBSVTOIN 15:32 → 4AH 07-16 13:12
PROVIDERS: ADMIT Internal Medicine; ATTEND Internal Medicine
DX: K72.90 Hepatic failure, unspecified without coma (principal); K74.60 Unspecified cirrhosis of liver; D69.6 Thrombocytopenia, unspecified; E03.9 Hypothyroidism, unspecified; M79.7 Fibromyalgia; D64.9 Anemia, unspecified; E07.89 Other specified disorders of thyroid; Z80.3 Family history of malignant neoplasm of breast; Z81.8 Family history of other mental and behavioral disorders; I25.2 Old myocardial infarction; Z82.49 Family history of ischemic heart disease and other diseases of the circulatory system; Z90.710 Acquired absence of both cervix and uterus; Z98.84 Bariatric surgery status; Z85.3 Personal history of malignant neoplasm of breast; Z90.49 Acquired absence of other specified parts of digestive tract; Z88.8 Allergy status to other drugs, medicaments and biological substances
CPT/HCPCS: 36415; 70450; 70551; 71045; 76705; 80048; 80053; 80061; 80305; 81003; 82140; 82550; 82948; 83540; 83550; 83735; 83874; 83880; 84145; 84484; 85025; 85027; 87088; 93005; C9113; G0378; J0696; J2405; J3490

== ENCOUNTER 2019-08-09 13:38 | Inpatient (IN) | payer MEDICAID, OTHER ==
[~2019-08-09] VITALS: Ht 167.6 cm; Wt 109.6 kg
[~2019-08-09 13:38] MED LIST changes: +ASPI-556 PO; +ATOR40TA69 PO; +CYAN250014 PO; +DULO30CA52 PO; +LACT PO; -PANT40TA PO; +PANT40TA54 PO; +PREN-66 PO; -SUCR1TAB2 PO
[2019-08-09 14:06] LABS: BASOPHILS % (AUTO) 1.1 % (0.0-5.0); EOSINOPHILS % (AUTO) 4.6 % (0.0-8.0); HEMATOCRIT 27.8 % (36-48); LYMPHOCYTES % (AUTO) 27.4 % (21.0-51.0); MEAN CORPUSCULAR HEMOGLOBIN 31.4 pg (27.0-33.0); MEAN CORPUSCULAR HGB CONC 32.4 g/dL (32.0-36.0); MEAN CORPUSCULAR VOLUME 96.9 fL (79-99); MONOCYTES % (AUTO) 9.8 % (3.0-13.0); NEUTROPHILS % (AUTO) 56.7 % (40.0-77.0); PLATELET COUNT (AUTO) 66 K/uL (130-400); RED BLOOD CELL COUNT(AUTO) 2.87 MIL/uL (4.00-5.50); RED CELL DISTRIBUTION WIDTH 15.6 % (11.0-15.5); WHITE BLOOD COUNT (AUTO) 2.9 K/uL (4.8-10.8)
[2019-08-09 14:18] LABS: CREATININE 0.8 mg/dL (0.5-1.5); POTASSIUM 4.1 mmol/L (3.5-5.1)
[2019-08-09 14:20] LABS: INR 1.2 (0.85-1.15); PARTIAL THROMBOPLASTIN TIME 29.1 SEC (26.3-35.5); PROTHROMBIN TIME 12.9 SEC (9.6-11.6)
[2019-08-09 14:22] LABS: ALBUMIN 2.6 g/dL (3.5-5.0); BILIRUBIN,TOTAL 2.3 mg/dL (0.2-1.0); TOTAL PROTEIN, SERUM 6.4 g/dL (6.0-8.3)
[2019-08-09] MEDS ORDERED: FAMOTIDINE 20MG TAB 20 MG TAB ONE (14:30)
[2019-08-09] MEDS ORDERED: ONDANSETRON HCL 4 MG/2 ML VIAL ONE (14:32)
[2019-08-09 14:35] LABS: APPEARANCE,URINE Clear (CLEAR); BILIRUBIN,URINE Negative (NEGATIVE); COLOR,URINE Yellow (YELLOW); GLUCOSE, URINE (UA) Negative (NEGATIVE); KETONES,URINE Negative (NEGATIVE); LEUKOCYTE ESTERASE ,URINE Trace (NEGATIVE); NITRATE,URINE Negative (NEGATIVE); OCCULT BLOOD,URINE Negative (NEGATIVE); PH,URINE >=9.0 (5.0-8.0); PROTEIN,URINE Trace mg/dL (NEGATIVE)
[2019-08-09 14:46] LABS: RBC,URINE 0-1 /HPF (0-1)
[2019-08-09 14:47] LABS: BACTERIA,URINE Few /HPF (None Seen); SQUAMOUS EPITHELIAL CELL,UR Few /HPF (0-2)
[2019-08-09 15:01] LABS: EOSINOPHILS % (MANUAL) 4 % (1-6); LYMPHOCYTES % (MANUAL) 30 % (22-44); MAN.DIFF COMMENT-IMPRESSION MANUAL DIFFERENTIAL; MONOCYTES % (MANUAL) 8 % (2-9); SEGMENTED NEUTROPHILS % 58 % (40-70)
[2019-08-09 15:02] LABS: PLATELET MORPHOLOGY COMMENT DECREASED
[2019-08-09] MEDS ORDERED: SODIUM CHLORIDE 0.9% 100 ML IV ONE (15:44)
[2019-08-09] MEDS ORDERED: OCTREOTIDE ACETATE 100 MCG/ML AMP IVP SCH (17:00)
[2019-08-09] MEDS ORDERED: OCTREOTIDE 1,250 MCG /NS 250ML (DRIP) IV SCH ×2 (17:00)
[2019-08-09] MEDS ORDERED: LACTULOSE 20 GM/30 ML UDCUP PO PRN (17:30)
[2019-08-09] MEDS ORDERED: ONDANSETRON HCL 4 MG/2 ML VIAL IV PRN (17:30)
[2019-08-09] MEDS ORDERED: OCTREOTIDE ACETATE 500 MCG in SODIUM CHLORIDE 0.9% 97.5 ML IV SCH (17:45)
[2019-08-09] MEDS ORDERED: EPOETIN ALFA 10,000 UNIT/ML VIAL SQ SCH (18:00)
[2019-08-09 21:00] VITALS: BP 109/57
[2019-08-09] MEDS ORDERED: PEG 3350/NA SULF,BICARB,CL/KCL 4000 ML SOLN PO SCH (21:00)
[2019-08-09] MEDS ORDERED: FLUO20CA30 PO (22:13)
[2019-08-10] VITALS (7 sets, daily range): BP systolic 111–152; BP diastolic 50–69
--- NOTE | 2019-08-10 00:10 | NUR ---
SPOKE WITH SPOUSE CARLOS ALBERTO HANCOCK AT THIS TIME FOR COLONOSCOPY TELEPHONE CONSENT DUE TO PT'S CONFUSION AND INABILITY TO SIGN HER OWN CONSENT. SPOUSE STATES HE DOES NOT WANT DR. MONGE, DR. LIN, AND DR. COLBY TO BE INVOLVED IN CASE. PT HAS BEEN SEEN BY THESE GI SPECIALIST PREVIOUSLY AND SPOUSE STATES, "THEY ALMOST KILLED HER. SHE WAS IN ICU FOR 5 DAYS AFTER THEY TRIED TO STOP A BLEEDING ULCER. I DO NOT WANT THEM TO SEE MY ." FELT CARBONIZER MADE AWARE OF THE SITUATION.
[2019-08-10] MEDS: PANTOPRAZOLE SODIUM 80 MG in SODIUM CHLORIDE 0.9% 100 ML IV SCH ×2 (02:09→13:10)
[2019-08-10] MEDS ORDERED: PHARMACY COMMUNICATION MISC SCH (02:15)
[2019-08-10] MEDS ORDERED: LACTULOSE 20 GM/30 ML UDCUP PR ONE (02:45)
[2019-08-10] MEDS ORDERED: LACTULOSE 20 GM/30 ML UDCUP PR SCH (04:03)
[2019-08-10 04:56] LABS: BASOPHILS % (AUTO) 1.1 % (0.0-5.0); EOSINOPHILS % (AUTO) 3.8 % (0.0-8.0); HEMATOCRIT 26.3 % (36-48); LYMPHOCYTES % (AUTO) 34.2 % (21.0-51.0); MEAN CORPUSCULAR HEMOGLOBIN 31.4 pg (27.0-33.0); MEAN CORPUSCULAR HGB CONC 32.7 g/dL (32.0-36.0); MONOCYTES % (AUTO) 10.9 % (3.0-13.0); NEUTROPHILS % (AUTO) 49.6 % (40.0-77.0); PLATELET COUNT (AUTO) 60 K/uL (130-400); RED BLOOD CELL COUNT(AUTO) 2.74 MIL/uL (4.00-5.50); RED CELL DISTRIBUTION WIDTH 15.5 % (11.0-15.5); WHITE BLOOD COUNT (AUTO) 2.7 K/uL (4.8-10.8)
[2019-08-10 05:13] LABS: ALBUMIN 2.4 g/dL (3.5-5.0); BILIRUBIN,TOTAL 2.6 mg/dL (0.2-1.0); CREATININE 0.8 mg/dL (0.5-1.5); POTASSIUM 3.8 mmol/L (3.5-5.1)
--- NOTE | 2019-08-10 10:45 | NUR ---
PATIENTS SPOUSE REPORT SPOKE TO PATIENTS SPOUSE Mojgan HANCOCK. MR. HANCOCK TOLD ME HE DOES NOT WANT DR. URBANO MONGE OR DR. COLBY TO SEE HIS . PATIENT ALSO STATES SHE DOES NOT WANT TO BE SEEN BY DR. Iesha MONGE OR DR. COLBY. Stephanie DUNLAP NP FOR HOSPITALIST GAVE OK TO CHANGE GI CONSULT TO DR. ANN. I INFORMED PATIENT AND SPOUSE THAT DR. ANN IS NOT WATER AND SE[employer] SYSTEMS SUPERINTENDENT UNTIL Monday08/12/2019. I TOLD PATIENT AND SPOUSE THAT WE WOULD ATTEMPT TO PAGE DR. ANN, BUT THERE MAY BE A CHANCE THAT DR. ANN WILL NOT SEE PATIENT UNTIL MONDAY. PATIENT AND HER HUSBANDS VERBALIZED UNDERSTANDING OF THIS.
--- NOTE | 2019-08-10 12:10 | NUR ---
DR. ANN ANSWERING SERVICE MD ANSWERING WILL NOT PAGE SINCE DR. ANN IS NOT PAYROLL MANAGER. I INFORMED PATIENT OF THIS.
[2019-08-10] MEDS ORDERED: COMPOUND IV MISC 1 EACH IVSOLN MISC PRN (13:15)
[2019-08-10] MEDS ORDERED: TRAMADOL HCL 50 MG TABLET PO PRN (13:15)
--- NOTE | 2019-08-10 17:47 | NUR ---
cm note met with patient and states resides at home with spouse, independent with adls, ambulates per self and cane at times. [facility] assisting with SSI disability, and provided pt wish community resources clinics, and rx assist. dc plan is back home. spouse to assist as needed. Addendum: 08/10/19 at 1751 by DA GROVE CM Amended: Links added.
[2019-08-10] MEDS: IRON SUCROSE COMPLEX 100 MG in SODIUM CHLORIDE 0.9% 50 ML IV SCH (21:55)
[2019-08-11 03:58] VITALS: BP 100/74
[2019-08-11 05:09] LABS: HEMATOCRIT 24.4 % (36-48); MEAN CORPUSCULAR HEMOGLOBIN 31.5 pg (27.0-33.0); MEAN CORPUSCULAR HGB CONC 32.8 g/dL (32.0-36.0); MEAN CORPUSCULAR VOLUME 96.1 fL (79-99); PLATELET COUNT (AUTO) 58 K/uL (130-400); RED BLOOD CELL COUNT(AUTO) 2.54 MIL/uL (4.00-5.50); RED CELL DISTRIBUTION WIDTH 15.6 % (11.0-15.5); WHITE BLOOD COUNT (AUTO) 2.8 K/uL (4.8-10.8)
[2019-08-11 05:23] LABS: % IRON SATURATION 87.6 % (22-44); ALBUMIN 2.5 g/dL (3.5-5.0); BAND NEUTROPHILS % (MANUAL) 4 % (0-2); BILIRUBIN,TOTAL 2.8 mg/dL (0.2-1.0); CREATININE 0.9 mg/dL (0.5-1.5); EOSINOPHILS % (MANUAL) 8 % (1-6); LYMPHOCYTES % (MANUAL) 36 % (22-44); MAN.DIFF COMMENT-IMPRESSION MANUAL DIFFERENTIAL; MONOCYTES % (MANUAL) 8 % (2-9); PLATELET MORPHOLOGY COMMENT DECREASED; POTASSIUM 3.2 mmol/L (3.5-5.1); SEGMENTED NEUTROPHILS % 44 % (40-70); TOTAL PROTEIN, SERUM 5.8 g/dL (6.0-8.3)
--- NOTE | 2019-08-11 05:26 | NUR ---
CRITICAL AMMONIA LEVEL AMMONIA 78. DECREASED FROM PREVIOUS LEVEL OF 148.
[2019-08-11] MEDS: PANTOPRAZOLE SODIUM 80 MG in SODIUM CHLORIDE 0.9% 100 ML IV SCH (08:13)
[2019-08-11 08:39] VITALS: BP 114/51
[2019-08-11] MEDS: IRON SUCROSE COMPLEX 100 MG in SODIUM CHLORIDE 0.9% 50 ML IV SCH (09:00)
[2019-08-11 13:20] VITALS: BP 123/69
[2019-08-11 16:52] VITALS: BP 121/65
[2019-08-11 20:20] VITALS: BP 115/52
[2019-08-11 23:40] VITALS: BP 114/52
[2019-08-12 03:33] VITALS: BP 123/59
[2019-08-12 05:29] LABS: BASOPHILS % (AUTO) 0.4 % (0.0-5.0); EOSINOPHILS % (AUTO) 5.2 % (0.0-8.0); HEMATOCRIT 25.4 % (36-48); LYMPHOCYTES % (AUTO) 31.7 % (21.0-51.0); MEAN CORPUSCULAR HEMOGLOBIN 30.7 pg (27.0-33.0); MEAN CORPUSCULAR HGB CONC 31.1 g/dL (32.0-36.0); MEAN CORPUSCULAR VOLUME 98.8 fL (79-99); MONOCYTES % (AUTO) 12.7 % (3.0-13.0); PLATELET COUNT (AUTO) 51 K/uL (130-400); RED BLOOD CELL COUNT(AUTO) 2.57 MIL/uL (4.00-5.50); RED CELL DISTRIBUTION WIDTH 15.5 % (11.0-15.5); WHITE BLOOD COUNT (AUTO) 2.5 K/uL (4.8-10.8)
[2019-08-12 05:53] LABS: ALBUMIN 2.4 g/dL (3.5-5.0); BILIRUBIN,TOTAL 2.9 mg/dL (0.2-1.0); CREATININE 0.6 mg/dL (0.5-1.5); POTASSIUM 3.2 mmol/L (3.5-5.1); TOTAL PROTEIN, SERUM 5.7 g/dL (6.0-8.3)
[2019-08-12 07:30] VITALS: BP 138/67
[2019-08-12] MEDS ORDERED: LIDOCAINE HCL-MPF 1% 2ML VIAL IJ PRN (08:15)
[2019-08-12] MEDS ORDERED: POTASSIUM CHLORIDE 20MEQ/100ML 100 ML IV PRN ×2 (08:15→19:15)
[2019-08-12] MEDS: PANTOPRAZOLE SODIUM 80 MG in SODIUM CHLORIDE 0.9% 100 ML IV SCH ×2 (08:25→20:58)
[2019-08-12 09:26] LABS: MAGNESIUM 1.8 mg/dL (1.80-2.40)
[2019-08-12] MEDS: CEFTRIAXONE SODIUM 1 GM IVP SCH (10:12)
[2019-08-12] MEDS: LACTULOSE 20 GM/30 ML UDCUP PO SCH ×4 (10:12→20:45)
[2019-08-12 11:00] VITALS: BP 123/68
[2019-08-12 16:00] VITALS: BP 114/48
[2019-08-12] MEDS ORDERED: POTASSIUM CHLORIDE 10% ELIXIR 20 MEQ/15 ML UDCUP PO PRN (19:15)
[2019-08-12] MEDS ORDERED: LIDOCAINE HCL-MPF 1% 2ML VIAL IV PRN (19:15)
[2019-08-12 20:00] VITALS: BP 126/72
[2019-08-12] MEDS: POTASSIUM CHLORIDE 20 MEQ ERTAB PO PRN ×2 (20:46→23:30)
[2019-08-13] VITALS: BP 110/49
[2019-08-13 04:00] VITALS: BP 115/55
[2019-08-13 06:26] LABS: BASOPHILS % (AUTO) 0.8 % (0.0-5.0); EOSINOPHILS % (AUTO) 6.5 % (0.0-8.0); LYMPHOCYTES % (AUTO) 27.8 % (21.0-51.0); MEAN CORPUSCULAR HEMOGLOBIN 30.8 pg (27.0-33.0); MEAN CORPUSCULAR VOLUME 96.2 fL (79-99); MONOCYTES % (AUTO) 14.3 % (3.0-13.0); NEUTROPHILS % (AUTO) 50.2 % (40.0-77.0); PLATELET COUNT (AUTO) 44 K/uL (130-400); RED CELL DISTRIBUTION WIDTH 15.4 % (11.0-15.5); WHITE BLOOD COUNT (AUTO) 2.5 K/uL (4.8-10.8)
[2019-08-13 06:31] LABS: CREATININE 0.8 mg/dL (0.5-1.5); POTASSIUM 3.4 mmol/L (3.5-5.1)
--- NOTE | 2019-08-13 06:37 | NUR ---
HENRY ANN TO NOTIFY OF NEUTROPHIL COUNT OF 1.2. WAITING FOR CALL BACK. Addendum: 08/13/19 at 0802 by DANIEL NEVILLE RN RN SPOKE WITH DR. ANN. HE SAID TO RE-SCHEDULE THE EGD FOR 08/13. ORDER LABS FOR AM AND PLACE PT ON NEUTROPENIC PRECAUTIONS/DIET. INFORMED PT OF THE UPDATE. PT VERBALIZED AGREEMENT TO PLAN.
[2019-08-13 07:10] LABS: BASOPHILS % (MANUAL) 1 % (0-2); EOSINOPHILS % (MANUAL) 6 % (1-6); LYMPHOCYTES % (MANUAL) 34 % (22-44); MAN.DIFF COMMENT-IMPRESSION MANUAL DIFFERENTIAL; MONOCYTES % (MANUAL) 7 % (2-9); PLATELET MORPHOLOGY COMMENT MARKED DECREASE; SEGMENTED NEUTROPHILS % 52 % (40-70)
[2019-08-13 07:30] VITALS: BP 113/57
[2019-08-13] MEDS: POTASSIUM CHLORIDE 20 MEQ ERTAB PO PRN ×2 (08:18→11:21)
[2019-08-13] MEDS: LACTULOSE 20 GM/30 ML UDCUP PO SCH ×3 (09:04→22:36)
[2019-08-13] MEDS: CEFTRIAXONE SODIUM 1 GM IVP SCH (10:42)
[2019-08-13 11:00] VITALS: BP 111/38
--- NOTE | 2019-08-13 12:00 | NUR ---
AMMONIA WILL HOLD LACTULOSE AMMONIA LEVEL 26.
[2019-08-13 16:00] VITALS: BP 114/52
[2019-08-13 20:18] VITALS: BP 126/57
[2019-08-14] VITALS (7 sets, daily range): BP systolic 105–120; BP diastolic 41–52
[2019-08-14] MEDS: PANTOPRAZOLE SODIUM 80 MG in SODIUM CHLORIDE 0.9% 100 ML IV SCH (04:57)
[2019-08-14 05:34] LABS: BASOPHILS % (AUTO) 0.8 % (0.0-5.0); HEMATOCRIT 26.9 % (36-48); LYMPHOCYTES % (AUTO) 31.9 % (21.0-51.0); MEAN CORPUSCULAR HEMOGLOBIN 30.2 pg (27.0-33.0); MEAN CORPUSCULAR HGB CONC 31.2 g/dL (32.0-36.0); MEAN CORPUSCULAR VOLUME 96.8 fL (79-99); NEUTROPHILS % (AUTO) 45.9 % (40.0-77.0); PLATELET COUNT (AUTO) 70 K/uL (130-400); RED BLOOD CELL COUNT(AUTO) 2.78 MIL/uL (4.00-5.50); RED CELL DISTRIBUTION WIDTH 15.9 % (11.0-15.5); WHITE BLOOD COUNT (AUTO) 2.4 K/uL (4.8-10.8)
[2019-08-14 05:54] LABS: CREATININE 0.7 mg/dL (0.5-1.5); POTASSIUM 3.3 mmol/L (3.5-5.1)
[2019-08-14] MEDS ORDERED: SODIUM CHLORIDE 0.9% 500ML 0 ML IV ONE (06:51)
--- NOTE | 2019-08-14 07:19 | NUR ---
PROCEDURE: 712: DR ANN CALLED REQUESTED ABSOLUTE NEUTRO INFROMED WERE 1.1: ORDERS TO CANCEL EGD FOR TODAY. START PATIENT ON SOFT DIET NEUTRO. 718: I CALLED GI, SPOKE TO SALVADOR CLIFFORD AND INFORMED OF DR ANN CANCELLING EGD TODAY. I INFORMED HER THAT HE SAID HE WOULD GIVE HER A FEW DAYS FOR ABSOLUTE NEUTRO TO GO UP NOW AT 1.1. SHE STATED SHE WOULD CANCEL THE PROCEDURE ON HER SIDE ON THE COMPUTOR.
[2019-08-14] MEDS: POTASSIUM CHLORIDE 20 MEQ ERTAB PO PRN ×3 (08:54→12:57)
[2019-08-14] MEDS: CEFTRIAXONE SODIUM 1 GM IVP SCH (08:54)
[2019-08-14] MEDS: LACTULOSE 20 GM/30 ML UDCUP PO SCH ×2 (09:00→19:28)
--- NOTE | 2019-08-14 09:05 | NUR ---
Per Dr. Mcmahon, titrate BMs ot 3-4 per day. Patient currently reports 2 watery BMs this morning and states she feels like she may have another one this morning. Will hold AM lactulose and reevaluate at later time.
--- NOTE | 2019-08-14 13:37 | NUR ---
EVITA SCREEN - LOS X 5 PT ADMITTED WITH ACUTE GI BLEED. PT CURRENTLY PENDING PROCEDURE. CURRENT CLEAR LIQUID/GI SOFT BLAND DIET ORDER, GOOD PO INTAKE. RECOMMEND CONTINUE POC. WHEN MEDICALLY FEASIBLE, REC TO ADV TOLERATED TO GI SOFT/BLAND. EVITA TO CONTINUE TO MONITOR. Addendum: 08/14/19 at [address] Amended: Links added.
[2019-08-14] MEDS: TBO-FILGRASTIM 300 MCG/0.5 ML ML SQ SCH (14:37)
[2019-08-15] VITALS (23 sets, daily range): BP systolic 98–129; BP diastolic 36–75
[2019-08-15 04:39] LABS: BASOPHILS % (AUTO) 0.2 % (0.0-5.0); HEMATOCRIT 26.6 % (36-48); LYMPHOCYTES % (AUTO) 9.5 % (21.0-51.0); MEAN CORPUSCULAR HEMOGLOBIN 31.4 pg (27.0-33.0); MEAN CORPUSCULAR HGB CONC 32.3 g/dL (32.0-36.0); MEAN CORPUSCULAR VOLUME 97.1 fL (79-99); MONOCYTES % (AUTO) 5.5 % (3.0-13.0); NEUTROPHILS % (AUTO) 82.4 % (40.0-77.0); PLATELET COUNT (AUTO) 60 K/uL (130-400); RED BLOOD CELL COUNT(AUTO) 2.74 MIL/uL (4.00-5.50); RED CELL DISTRIBUTION WIDTH 16.1 % (11.0-15.5)
[2019-08-15 05:11] LABS: CREATININE 0.8 mg/dL (0.5-1.5); MAGNESIUM 1.9 mg/dL (1.80-2.40); POTASSIUM 3.8 mmol/L (3.5-5.1)
[2019-08-15] MEDS: TBO-FILGRASTIM 300 MCG/0.5 ML ML SQ SCH (08:45)
[2019-08-15] MEDS: LACTULOSE 20 GM/30 ML UDCUP PO SCH ×2 (08:46→19:52)
[2019-08-15] MEDS: CEFTRIAXONE SODIUM 1 GM IVP SCH (08:49)
--- NOTE | 2019-08-15 10:55 | NUR ---
DR ANN MADE AWARE OF PATIENT'S NEUTROPHIL COUNT, WBC AND PLATELET COUNT. EGD WITH MAC AT 1300. NPO.
[2019-08-15] MEDS ORDERED: LIDOCAINE HCL 1% 20 ML VIAL ONE (13:25)
[2019-08-15] MEDS ORDERED: PROPOFOL 10 MG/ML 20ML VIAL IV ONE ×2 (13:25→13:30)
[2019-08-16] VITALS (10 sets, daily range): BP systolic 107–128; BP diastolic 63–71
[2019-08-16 05:39] LABS: BASOPHILS % (AUTO) 0.3 % (0.0-5.0); HEMATOCRIT 26.6 % (36-48); LYMPHOCYTES % (AUTO) 9.7 % (21.0-51.0); MEAN CORPUSCULAR HEMOGLOBIN 30.9 pg (27.0-33.0); MEAN CORPUSCULAR HGB CONC 31.6 g/dL (32.0-36.0); MEAN CORPUSCULAR VOLUME 97.8 fL (79-99); MONOCYTES % (AUTO) 6.1 % (3.0-13.0); PLATELET COUNT (AUTO) 60 K/uL (130-400); RED BLOOD CELL COUNT(AUTO) 2.72 MIL/uL (4.00-5.50); RED CELL DISTRIBUTION WIDTH 16.9 % (11.0-15.5); WHITE BLOOD COUNT (AUTO) 11.3 K/uL (4.8-10.8)
[2019-08-16 05:49] LABS: CREATININE 0.8 mg/dL (0.5-1.5); POTASSIUM 3.8 mmol/L (3.5-5.1)
[2019-08-16] MEDS ORDERED: PANTOPRAZOLE SODIUM 40 MG TABLET.DR PO SCH (06:30)
[2019-08-16] MEDS: CEFTRIAXONE SODIUM 1 GM IVP SCH (09:52)
[2019-08-16] MEDS: LACTULOSE 20 GM/30 ML UDCUP PO SCH (09:52)
[2019-08-16] MEDS ORDERED: PANT40TA PO ×2 (12:25→15:45)
== END 2019-08-16 15:45 | disposition home or self-care (01) | DRG 378 ==
LOC: EDH 13:38 → EDHIP 13:39 → 3DH 19:49
PROVIDERS: ADMIT Internal Medicine; ATTEND Internal Medicine
PROC: 30233R1 Transfusion of Nonautologous Platelets into Peripheral Vein, Percutaneous Approach (ICD-10-PCS; principal; 2019-08-09)
PROC: 0DJ08ZZ Inspection of Upper Intestinal Tract, Via Natural or Artificial Opening Endoscopic (ICD-10-PCS; 2019-08-15)
DX: K29.01 Acute gastritis with bleeding (principal); D61.818 Other pancytopenia; D68.9 Coagulation defect, unspecified; D62 Acute posthemorrhagic anemia; K31.811 Angiodysplasia of stomach and duodenum with bleeding; K21.0 Gastro-esophageal reflux disease with esophagitis; K74.60 Unspecified cirrhosis of liver; I10 Essential (primary) hypertension; K72.90 Hepatic failure, unspecified without coma; K31.89 Other diseases of stomach and duodenum; E03.9 Hypothyroidism, unspecified; E11.9 Type 2 diabetes mellitus without complications; E66.01 Morbid (severe) obesity due to excess calories; F32.9 Major depressive disorder, single episode, unspecified; M32.9 Systemic lupus erythematosus, unspecified; M79.7 Fibromyalgia; Z85.3 Personal history of malignant neoplasm of breast; Z90.12 Acquired absence of left breast and nipple; Z90.710 Acquired absence of both cervix and uterus; Z98.84 Bariatric surgery status; Z87.11 Personal history of peptic ulcer disease; Z82.49 Family history of ischemic heart disease and other diseases of the circulatory system
CPT/HCPCS: 36415; 36430; 43255; 80048; 80053; 81001; 82140; 82270; 82607; 82728; 82746; 83540; 83550; 83735; 85025; 85049; 85610; 85730; 86850; 86900; 86901; A4606; C9113; G0378; J0696; J0885; J1756; J2354; J2405; J2704; J3480; J7030; J7040; J7050; P9034

== ENCOUNTER 2019-08-21 23:38 | Emergency (ER) | payer MEDICAID, OTHER ==
[~2019-08-21 23:38] MED LIST changes: -ASPI-556 PO; -DULO30CA52 PO; +FLUO20CA30 PO; +PANT40TA PO; -PANT40TA54 PO; -PREN-66 PO
[2019-08-22] MEDS ORDERED: ONDANSETRON HCL 4 MG/2 ML VIAL ONE (00:27)
[2019-08-22 00:28] LABS: BASOPHILS % (AUTO) 0.7 % (0.0-5.0); EOSINOPHILS % (AUTO) 5.7 % (0.0-8.0); HEMATOCRIT 27.9 % (36-48); LYMPHOCYTES % (AUTO) 27.8 % (21.0-51.0); MEAN CORPUSCULAR HEMOGLOBIN 29.9 pg (27.0-33.0); MEAN CORPUSCULAR HGB CONC 31.9 g/dL (32.0-36.0); MEAN CORPUSCULAR VOLUME 93.6 fL (79-99); MONOCYTES % (AUTO) 14.4 % (3.0-13.0); NEUTROPHILS % (AUTO) 51.1 % (40.0-77.0); PLATELET COUNT (AUTO) 59 K/uL (130-400); RED BLOOD CELL COUNT(AUTO) 2.98 MIL/uL (4.00-5.50); RED CELL DISTRIBUTION WIDTH 16.4 % (11.0-15.5)
[2019-08-22 00:31] LABS: APPEARANCE,URINE Clear (CLEAR); BILIRUBIN,URINE Negative (NEGATIVE); COLOR,URINE Yellow (YELLOW); GLUCOSE, URINE (UA) Negative (NEGATIVE); KETONES,URINE Negative (NEGATIVE); LEUKOCYTE ESTERASE ,URINE Trace (NEGATIVE); NITRATE,URINE Negative (NEGATIVE); OCCULT BLOOD,URINE Negative (NEGATIVE); PH,URINE 5.5 (5.0-8.0); PROTEIN,URINE Negative (NEGATIVE)
[2019-08-22 00:37] LABS: CREATININE 0.8 mg/dL (0.5-1.5); POTASSIUM 3.8 mmol/L (3.5-5.1)
[2019-08-22 00:43] LABS: ALBUMIN 2.8 g/dL (3.5-5.0); TOTAL PROTEIN, SERUM 6.5 g/dL (6.0-8.3)
[2019-08-22 00:48] LABS: BACTERIA,URINE Few /HPF (None Seen); RBC,URINE None Seen /HPF (0-1)
[2019-08-22] MEDS ORDERED: IOHEXOL-350 75 ML VIAL IV ONE (00:51)
[2019-08-22 00:54] LABS: BAND NEUTROPHILS % (MANUAL) 3 % (0-2); BASOPHILS % (MANUAL) 2 % (0-2); EOSINOPHILS % (MANUAL) 8 % (1-6); LYMPHOCYTES % (MANUAL) 28 % (22-44); MAN.DIFF COMMENT-IMPRESSION MANUAL DIFFERENTIAL; MONOCYTES % (MANUAL) 7 % (2-9); SEGMENTED NEUTROPHILS % 52 % (40-70)
[2019-08-22] MEDS ORDERED: MORPHINE SULFATE 4 MG/1ML SYG ONE (01:03)
[2019-08-22] MEDS ORDERED: LIDOCAINE HCL 2% VISCOUS 15 ML UDCUP ONE (03:41)
[2019-08-22] MEDS ORDERED: MAG HYDROX/AL HYDROX/SIMETH ES 30 ML SUSP UDCUP ONE (03:41)
== END 2019-08-22 06:21 | disposition home or self-care (01) ==
LOC: EDH 23:38
DX: R10.10 Upper abdominal pain, unspecified (principal); R11.0 Nausea; F32.9 Major depressive disorder, single episode, unspecified; M79.7 Fibromyalgia; E03.9 Hypothyroidism, unspecified; M32.9 Systemic lupus erythematosus, unspecified; Z85.3 Personal history of malignant neoplasm of breast; Z90.710 Acquired absence of both cervix and uterus; Z90.49 Acquired absence of other specified parts of digestive tract
CPT/HCPCS: 36415; 74177; 80053; 81001; 82550; 83690; 84484; 85025; 93005; 96374; 96375; 99285; J2270; J2405; Q9967

== ENCOUNTER 2019-10-14 17:18 | Inpatient (IN) | payer MEDICAID ==
[~2019-10-14] VITALS: Ht 167.6 cm; Wt 113.3 kg
[2019-10-14 17:57] LABS: BASOPHILS % (AUTO) 0.7 % (0.0-5.0); EOSINOPHILS % (AUTO) 3.6 % (0.0-8.0); HEMATOCRIT 26.7 % (36-48); LYMPHOCYTES % (AUTO) 24.3 % (21.0-51.0); MEAN CORPUSCULAR HEMOGLOBIN 25.7 pg (27.0-33.0); MEAN CORPUSCULAR HGB CONC 30.3 g/dL (32.0-36.0); MEAN CORPUSCULAR VOLUME 84.8 fL (79-99); MONOCYTES % (AUTO) 12.5 % (3.0-13.0); NEUTROPHILS % (AUTO) 58.9 % (40.0-77.0); PLATELET COUNT (AUTO) 57 K/uL (130-400); RED BLOOD CELL COUNT(AUTO) 3.15 MIL/uL (4.00-5.50); RED CELL DISTRIBUTION WIDTH 18.1 % (11.0-15.5); WHITE BLOOD COUNT (AUTO) 2.8 K/uL (4.8-10.8)
[2019-10-14 18:10] LABS: INR 1.18 (0.85-1.15); PARTIAL THROMBOPLASTIN TIME 29.2 SEC (26.3-35.5); PROTHROMBIN TIME 12.7 SEC (9.6-11.6)
[2019-10-14 18:13] LABS: CREATININE 0.8 mg/dL (0.5-1.5); POTASSIUM 3.6 mmol/L (3.5-5.1)
[2019-10-14 18:18] LABS: ALBUMIN 2.6 g/dL (3.5-5.0); BILIRUBIN,TOTAL 1.7 mg/dL (0.2-1.0); TOTAL PROTEIN, SERUM 6.3 g/dL (6.0-8.3)
[2019-10-14 18:20] LABS: BASOPHILS % (MANUAL) 1 % (0-2); EOSINOPHILS % (MANUAL) 6 % (1-6); LYMPHOCYTES % (MANUAL) 19 % (22-44); MONOCYTES % (MANUAL) 11 % (2-9); SEGMENTED NEUTROPHILS % 63 % (40-70)
[2019-10-14 18:21] LABS: MAN.DIFF COMMENT-IMPRESSION MANUAL DIFFERENTIAL
[2019-10-14 18:29] LABS: APPEARANCE,URINE Clear (CLEAR); BILIRUBIN,URINE Small (NEGATIVE); COLOR,URINE Dark Yellow (YELLOW); GLUCOSE, URINE (UA) TRACE mg/dL (NEGATIVE); KETONES,URINE Trace mg/dL (NEGATIVE); LEUKOCYTE ESTERASE ,URINE Negative (NEGATIVE); NITRATE,URINE Negative (NEGATIVE); OCCULT BLOOD,URINE Negative (NEGATIVE); PH,URINE 5.5 (5.0-8.0); PROTEIN,URINE Negative (NEGATIVE)
[2019-10-14 18:45] LABS: BACTERIA,URINE Rare /HPF (None Seen); CALCIUM OXALATE CRYSTALS,UR Few /LPF (None Seen); RBC,URINE 0-1 /HPF (0-1); SQUAMOUS EPITHELIAL CELL,UR Rare /HPF (0-2); WBC,URINE 0-1 /HPF (0-1)
[2019-10-14 18:46] LABS: MUCUS,URINE Few LPF (None Seen)
[2019-10-14] MEDS ORDERED: ONDANSETRON HCL 4 MG/2 ML VIAL IV PRN (20:00)
[2019-10-14] MEDS: LACTULOSE 20 GM/30 ML UDCUP PO SCH (20:00)
[2019-10-14] MEDS ORDERED: HYDROMORPHONE HCL 0.5 MG/0.5 ML ML IVP PRN (20:15)
[2019-10-14] MEDS: LIDOCAINE 5% TOPICAL PATCH TP SCH (20:15)
[2019-10-14] MEDS ORDERED: FAMOTIDINE 20MG TAB 20 MG TAB PO SCH (21:00)
[2019-10-14] MEDS ORDERED: LACTULOSE 20 GM/30 ML UDCUP ONE (21:12)
[2019-10-14] MEDS ORDERED: FAMOTIDINE 20MG TAB 20 MG TAB ONE (21:13)
[2019-10-14] MEDS ORDERED: LIDOCAINE 5% TOPICAL PATCH TP ONE (21:13)
[2019-10-14 22:30] VITALS: BP 126/55
[2019-10-14] MEDS ORDERED: LACT10SO PO (22:55)
[2019-10-14] MEDS ORDERED: FURO20TA4 PO (22:55)
[2019-10-14] MEDS ORDERED: ONDA4TAB4 PO (22:55)
[2019-10-14] MEDS ORDERED: PREN-61 PO (22:55)
[2019-10-14] MEDS ORDERED: ERGO50CA PO (22:55)
[2019-10-15] MEDS: LACTULOSE 20 GM/30 ML UDCUP PO SCH ×4 (02:05→20:00)
[2019-10-15 03:42] VITALS: BP 121/51
[2019-10-15 05:58] LABS: BASOPHILS % (AUTO) 0.9 % (0.0-5.0); EOSINOPHILS % (AUTO) 5.6 % (0.0-8.0); HEMATOCRIT 24.3 % (36-48); LYMPHOCYTES % (AUTO) 34.7 % (21.0-51.0); MEAN CORPUSCULAR HEMOGLOBIN 25.3 pg (27.0-33.0); MEAN CORPUSCULAR HGB CONC 30.5 g/dL (32.0-36.0); MEAN CORPUSCULAR VOLUME 82.9 fL (79-99); MONOCYTES % (AUTO) 12.7 % (3.0-13.0); NEUTROPHILS % (AUTO) 45.6 % (40.0-77.0); PLATELET COUNT (AUTO) 54 K/uL (130-400); RED BLOOD CELL COUNT(AUTO) 2.93 MIL/uL (4.00-5.50); RED CELL DISTRIBUTION WIDTH 18.2 % (11.0-15.5); WHITE BLOOD COUNT (AUTO) 2.1 K/uL (4.8-10.8)
[2019-10-15 06:11] LABS: CREATININE 0.6 mg/dL (0.5-1.5); POTASSIUM 3.4 mmol/L (3.5-5.1)
[2019-10-15 07:44] VITALS: BP 117/61
[2019-10-15] MEDS: LIDOCAINE 5% TOPICAL PATCH TP SCH (08:17)
[2019-10-15] MEDS: PANTOPRAZOLE SODIUM 40 MG TABLET.DR PO SCH (08:17)
[2019-10-15 12:19] VITALS: BP 110/55
[2019-10-15] MEDS ORDERED: ONDANSETRON 4 MG TABLET PO PRN (13:30)
[2019-10-15] MEDS ORDERED: ERGOCALCIFEROL 50000 UNIT PO SCH (13:30)
[2019-10-15 15:49] VITALS: BP 112/56
[2019-10-15] MEDS ORDERED: [UNRECOGNIZED DRUG - REMARK] PO SCH (17:00)
[2019-10-15 19:00] VITALS: BP 119/59
--- NOTE | 2019-10-15 20:00 | NUR ---
LACTULOSE DOSE HELD FOR TONIGHT, PATIENT HAS HAD 4 BOWEL MOVEMENTS. PER MD ORDERS TITRATE LACTULOSE WITH GOAL OF 2-3 BMs PER NIGHT.
[2019-10-15] MEDS ORDERED: CYANOCOBALAMIN 500 MCG PO SCH (21:00)
[2019-10-15 23:00] VITALS: BP 106/53
--- NOTE | 2019-10-15 23:30 | NUR ---
PATIENT WITH C/O PAIN TO LEFT LATERAL ABDOMEN, STATING IT RADIATES TO SHOULDERS AND BACK. PT WAS GIVEN DILAUDID 0.5 MG IV PER PRN MEDS. I INFORMED PAUL OSHEA TELETYPESETTER MONITOR, INSTRUCTED IF PATIENT CONTINUES WITH PAIN, MAY GIVE TORADOL 15 MG IV x 1 DOSE. WILL CONT TO MONITOR CLOSELY.
[2019-10-16] MEDS: LACTULOSE 20 GM/30 ML UDCUP PO SCH ×2 (01:56→09:14)
[2019-10-16 03:00] VITALS: BP 99/47
[2019-10-16 05:14] LABS: BASOPHILS % (AUTO) 0.9 % (0.0-5.0); EOSINOPHILS % (AUTO) 5.3 % (0.0-8.0); LYMPHOCYTES % (AUTO) 33.8 % (21.0-51.0); MEAN CORPUSCULAR HEMOGLOBIN 25.7 pg (27.0-33.0); MEAN CORPUSCULAR HGB CONC 30.8 g/dL (32.0-36.0); MEAN CORPUSCULAR VOLUME 83.3 fL (79-99); MONOCYTES % (AUTO) 12.3 % (3.0-13.0); NEUTROPHILS % (AUTO) 47.7 % (40.0-77.0); PLATELET COUNT (AUTO) 53 K/uL (130-400); RED CELL DISTRIBUTION WIDTH 18.4 % (11.0-15.5); WHITE BLOOD COUNT (AUTO) 2.3 K/uL (4.8-10.8)
[2019-10-16 05:47] LABS: CREATININE 0.6 mg/dL (0.5-1.5); POTASSIUM 3.6 mmol/L (3.5-5.1); THYROID STIMULATING HORMONE 0.4 uIU/mL (0.36-3.74)
[2019-10-16] MEDS ORDERED: LEVOTHYROXINE 100 MCG TABLET PO SCH (06:30)
[2019-10-16 07:44] VITALS: BP 105/57
[2019-10-16] MEDS ORDERED: PRENATAL VITAMIN RX TABLET PO SCH (09:00)
[2019-10-16] MEDS ORDERED: CYANOCOBALAMIN (VITAMIN B-12) 100 MCG TABLET PO SCH (09:00)
[2019-10-16] MEDS ORDERED: ERGOCALCIFEROL (VITAMIN D2) 50,000 UNIT CAPSULE PO SCH (09:00)
[2019-10-16] MEDS ORDERED: FUROSEMIDE 20 MG TABLET PO SCH (09:00)
[2019-10-16] MEDS ORDERED: FLUOXETINE HCL 20 MG CAPSULE PO SCH (09:00)
[2019-10-16] MEDS: LIDOCAINE 5% TOPICAL PATCH TP SCH (09:15)
[2019-10-16] MEDS: PANTOPRAZOLE SODIUM 40 MG TABLET.DR PO SCH (09:15)
[2019-10-16] MEDS ORDERED: LACT10SO9 PO (09:44)
[2019-10-16 12:00] VITALS: BP 105/47
--- NOTE | 2019-10-16 12:00 | NUR ---
PATIENT DISCHARGED PRIOR TO CM DETAILED ASSESSMENT. NO TRIGGERS,NO CONCERNS VOICED BY/TO DARRIN. Addendum: 10/16/19 at 1609 by RENATO VALENZUELA RN CM Amended: Links added.
== END 2019-10-16 12:00 | disposition home or self-care (01) | DRG 279 ==
LOC: EDH 17:18 → EDHIP 17:19 → UNDOADMIN 20:00 → EDHIP 20:00 → 3BH 21:32
PROVIDERS: ADMIT Internal Medicine; ATTEND Internal Medicine
DX: K72.90 Hepatic failure, unspecified without coma (principal); D61.818 Other pancytopenia; K74.60 Unspecified cirrhosis of liver; M54.5 Low back pain; M41.9 Scoliosis, unspecified; I10 Essential (primary) hypertension; E03.9 Hypothyroidism, unspecified; M79.7 Fibromyalgia; F32.9 Major depressive disorder, single episode, unspecified; Z98.84 Bariatric surgery status; Z90.49 Acquired absence of other specified parts of digestive tract; Z91.14 Patient's other noncompliance with medication regimen; Z90.710 Acquired absence of both cervix and uterus; Z90.12 Acquired absence of left breast and nipple; Z85.3 Personal history of malignant neoplasm of breast; Z82.49 Family history of ischemic heart disease and other diseases of the circulatory system
CPT/HCPCS: 36415; 70450; 72100; 76770; 80048; 80053; 81001; 82140; 82270; 84443; 84484; 85025; 85610; 85730; 93005; G0378; J1170

== ENCOUNTER 2020-01-01 13:06 | Emergency (ER) | payer MEDICAID ==
[~2020-01-01 13:06] MED LIST changes: -ATOR40TA69 PO; +ERGO50CA PO; +FURO20TA4 PO; -LACT PO; +LACT10SO9 PO; +ONDA4TAB4 PO; -PANT40TA PO; +PREN-61 PO
[2020-01-01] MEDS ORDERED: SODIUM CHLORIDE 0.9% 1000ML 1,000 ML IV ONE (13:07)
[2020-01-01 13:58] LABS: EOSINOPHILS % (AUTO) 3.7 % (0.0-8.0); HEMATOCRIT 33.8 % (36-48); LYMPHOCYTES % (AUTO) 25.7 % (21.0-51.0); MEAN CORPUSCULAR HEMOGLOBIN 30.5 pg (27.0-33.0); MEAN CORPUSCULAR HGB CONC 33.1 g/dL (32.0-36.0); MEAN CORPUSCULAR VOLUME 92.1 fL (79-99); MONOCYTES % (AUTO) 11.8 % (3.0-13.0); NEUTROPHILS % (AUTO) 57.5 % (40.0-77.0); PLATELET COUNT (AUTO) 55 K/uL (130-400); RED BLOOD CELL COUNT(AUTO) 3.67 MIL/uL (4.00-5.50)
[2020-01-01 14:10] LABS: CREATININE 0.7 mg/dL (0.5-1.5); POTASSIUM 3.7 mmol/L (3.5-5.1)
[2020-01-01 14:14] LABS: ALBUMIN 2.7 g/dL (3.5-5.0); BILIRUBIN,TOTAL 2.4 mg/dL (0.2-1.0); TOTAL PROTEIN, SERUM 6.6 g/dL (6.0-8.3)
[2020-01-01 14:27] LABS: BAND NEUTROPHILS % (MANUAL) 3 % (0-2); EOSINOPHILS % (MANUAL) 8 % (1-6); LYMPHOCYTES % (MANUAL) 24 % (22-44); MONOCYTES % (MANUAL) 5 % (2-9); SEGMENTED NEUTROPHILS % 60 % (40-70)
[2020-01-01 14:28] LABS: MAN.DIFF COMMENT-IMPRESSION MANUAL DIFFERENTIAL
[2020-01-01] MEDS ORDERED: LACTULOSE 20 GM/30 ML UDCUP ONE (15:23)
[2020-01-01 17:27] LABS: APPEARANCE,URINE Clear (CLEAR); BILIRUBIN,URINE Negative (NEGATIVE); COLOR,URINE Yellow (YELLOW); GLUCOSE, URINE (UA) Negative (NEGATIVE); KETONES,URINE Negative (NEGATIVE); LEUKOCYTE ESTERASE ,URINE Negative (NEGATIVE); NITRATE,URINE Negative (NEGATIVE); OCCULT BLOOD,URINE Negative (NEGATIVE); PROTEIN,URINE Negative (NEGATIVE)
[2020-01-01 17:34] LABS: AMPHET/METH SCREEN,URINE NEGATIVE (NEGATIVE); BARBITURATE SCREEN, URINE NEGATIVE (NEGATIVE); BENZODIAZEPINES SCREEN,URINE NEGATIVE (NEGATIVE); CANNABINOID SCREEN,URINE NEGATIVE (NEGATIVE); COCAINE SCREEN,URINE NEGATIVE (NEGATIVE); OPIATE SCREEN,URINE NEGATIVE (NEGATIVE); PHENCYCLIDINE SCREEN,URINE NEGATIVE (NEGATIVE)
[2020-01-01] MEDS ORDERED: ACETAMINOPHEN EXTRA STRENGTH 500 MG TABLET ONE (18:08)
== END 2020-01-01 18:56 | disposition home or self-care (01) ==
LOC: EDH 13:06
DX: E86.0 Dehydration (principal); E72.20 Disorder of urea cycle metabolism, unspecified; F32.9 Major depressive disorder, single episode, unspecified; E03.9 Hypothyroidism, unspecified; M79.7 Fibromyalgia; M32.9 Systemic lupus erythematosus, unspecified; Z86.73 Personal history of transient ischemic attack (TIA), and cerebral infarction without residual deficits; Z85.3 Personal history of malignant neoplasm of breast; Z90.710 Acquired absence of both cervix and uterus
CPT/HCPCS: 36415; 70450; 80053; 80305; 81003; 82140; 82550; 82948; 84484; 85025; 93005; 96360; 99285; J7030

== ENCOUNTER 2020-01-26 21:01 | Inpatient (IN) | payer MEDICAID ==
[~2020-01-26] VITALS: Ht 152.4 cm; Wt 112.5 kg
[2020-01-26 21:44] LABS: BASOPHILS % (AUTO) 0.9 % (0.0-5.0); HEMATOCRIT 34.9 % (36-48); LYMPHOCYTES % (AUTO) 27.6 % (21.0-51.0); MEAN CORPUSCULAR HEMOGLOBIN 31.4 pg (27.0-33.0); MEAN CORPUSCULAR HGB CONC 33.5 g/dL (32.0-36.0); MEAN CORPUSCULAR VOLUME 93.6 fL (79-99); MONOCYTES % (AUTO) 12.8 % (3.0-13.0); NEUTROPHILS % (AUTO) 54.7 % (40.0-77.0); PLATELET COUNT (AUTO) 66 K/uL (130-400); RED BLOOD CELL COUNT(AUTO) 3.73 MIL/uL (4.00-5.50); RED CELL DISTRIBUTION WIDTH 17.8 % (11.0-15.5); WHITE BLOOD COUNT (AUTO) 3.5 K/uL (4.8-10.8)
[2020-01-26 21:54] LABS: APPEARANCE,URINE Clear (CLEAR); BILIRUBIN,URINE Negative (NEGATIVE); COLOR,URINE Dark Yellow (YELLOW); GLUCOSE, URINE (UA) Negative (NEGATIVE); KETONES,URINE Negative (NEGATIVE); LEUKOCYTE ESTERASE ,URINE Negative (NEGATIVE); NITRATE,URINE Negative (NEGATIVE); OCCULT BLOOD,URINE Negative (NEGATIVE); PROTEIN,URINE Negative (NEGATIVE)
[2020-01-26 21:57] LABS: CREATININE 0.9 mg/dL (0.5-1.5); POTASSIUM 4.1 mmol/L (3.5-5.1)
[2020-01-26 21:59] LABS: INR 1.12 (0.85-1.15); PARTIAL THROMBOPLASTIN TIME 27.9 SEC (26.3-35.5)
[2020-01-26 22:01] LABS: ALBUMIN 2.9 g/dL (3.5-5.0); AMYLASE 42 U/L (25-115); BILIRUBIN,TOTAL 2.5 mg/dL (0.2-1.0); CREATINE KINASE, TOTAL 130 U/L (21-232); LIPASE 85 U/L (114-286); TOTAL PROTEIN, SERUM 7.3 g/dL (6.0-8.3)
[2020-01-26 22:03] LABS: AMPHET/METH SCREEN,URINE NEGATIVE (NEGATIVE); BARBITURATE SCREEN, URINE NEGATIVE (NEGATIVE); BENZODIAZEPINES SCREEN,URINE NEGATIVE (NEGATIVE); CANNABINOID SCREEN,URINE NEGATIVE (NEGATIVE); COCAINE SCREEN,URINE NEGATIVE (NEGATIVE); OPIATE SCREEN,URINE NEGATIVE (NEGATIVE); PHENCYCLIDINE SCREEN,URINE NEGATIVE (NEGATIVE)
[2020-01-26] MEDS ORDERED: LACTULOSE 20 GM/30 ML UDCUP ONE (22:09)
[2020-01-26] MEDS ORDERED: ACETAMINOPHEN 325 MG TAB PO PRN ×2 (23:15)
[2020-01-26] MEDS ORDERED: ONDANSETRON HCL 4 MG/2 ML VIAL IV PRN (23:15)
[2020-01-26] MEDS ORDERED: NITROGLYCERIN 0.4 MG SL TAB SL PRN (23:15)
[2020-01-26] MEDS ORDERED: DIPHENHYDRAMINE HCL 25 MG CAPSULE PO PRN (23:15)
[2020-01-26] MEDS ORDERED: ACETAMINOPHEN 325 MG TAB ONE (23:25)
[2020-01-27 05:07] LABS: BASOPHILS % (AUTO) 1.5 % (0.0-5.0); EOSINOPHILS % (AUTO) 5.1 % (0.0-8.0); HEMATOCRIT 30.8 % (36-48); LYMPHOCYTES % (AUTO) 32.1 % (21.0-51.0); MEAN CORPUSCULAR HGB CONC 33.1 g/dL (32.0-36.0); MEAN CORPUSCULAR VOLUME 93.6 fL (79-99); MONOCYTES % (AUTO) 12.4 % (3.0-13.0); NEUTROPHILS % (AUTO) 48.9 % (40.0-77.0); PLATELET COUNT (AUTO) 54 K/uL (130-400); RED BLOOD CELL COUNT(AUTO) 3.29 MIL/uL (4.00-5.50); RED CELL DISTRIBUTION WIDTH 17.5 % (11.0-15.5); WHITE BLOOD COUNT (AUTO) 2.7 K/uL (4.8-10.8)
[2020-01-27 05:24] LABS: ALBUMIN 2.4 g/dL (3.5-5.0); BILIRUBIN,TOTAL 2.2 mg/dL (0.2-1.0); CREATININE 0.8 mg/dL (0.5-1.5); MAGNESIUM 1.6 mg/dL (1.80-2.40); POTASSIUM 3.8 mmol/L (3.5-5.1); TOTAL PROTEIN, SERUM 6.1 g/dL (6.0-8.3)
[2020-01-27 06:37] LABS: CREATINE KINASE, TOTAL 109 U/L (21-232); MYOGLOBIN 47 ng/mL (10-92); TROPONIN I < 0.04 ng/mL (0.00-0.06)
[2020-01-27] MEDS ORDERED: LACTULOSE 20 GM/30 ML UDCUP PO PRN (09:00)
[2020-01-27] MEDS ORDERED: FAMOTIDINE 20MG TAB 20 MG TAB ONE (11:07)
[2020-01-27] MEDS: SODIUM CHLORIDE 0.9% 1000ML 1,000 ML IV SCH ×2 (12:29→19:57)
[2020-01-27] MEDS ORDERED: ACETAMINOPHEN 325 MG TAB ONE (13:25)
--- NOTE | 2020-01-27 15:04 | NUR ---
SPOKE WITH SPOUSE CARLOS ALBERTO FOR D/C PLANNING STATES PATIENT LIVES W/ HIMSELF AND HER FATHER, STATES DX W/LIVER PROBLEMS A FEW MONTHS AGO, PAPERWORK FOR ROLLING WALER AND SHOWER CHAIR IN PROCESS. HAS PROVIDER 20 HRS/WK, RAMP AT HOME, AND [employer] PROVIDE TRANSPORT, SEMI INDPENDENT, USES A CANE AT TIME. DC PLAN HOME. CM TO FOLLOW Addendum: 01/27/20 at 1509 by RNEATO VALENZUELA RN CM Amended: Links added.
--- NOTE | 2020-01-27 19:00 | NUR ---
ARRIVAL Pt arrived from ED at change of shift,report was given to Nat CLIFFORD.
[2020-01-27] MEDS ORDERED: SPIR25TA PO (19:55)
[2020-01-27] MEDS ORDERED: PREG25CA18 PO (19:55)
[2020-01-27] MEDS: FAMOTIDINE 20MG TAB 20 MG TAB PO SCH ×2 (19:57→20:04)
[2020-01-27 20:00] VITALS: BP 113/50
[2020-01-28] VITALS: BP 100/38
[2020-01-28] MEDS: SODIUM CHLORIDE 0.9% 1000ML 1,000 ML IV SCH ×3 (01:49→19:50)
--- NOTE | 2020-01-28 03:18 | NUR ---
SCD Pt sleeping,arousable,states the SCD makes her anxious.
--- NOTE | 2020-01-28 03:33 | NUR ---
RE LOW BP Pt resting in bed,aao x 3,denies pain or discomfort.Asymptomatic.Ivf infusing via left forearm iv site.
[2020-01-28 04:00] VITALS: BP 92/38
[2020-01-28 08:00] VITALS: BP 100/44
[2020-01-28] MEDS: FAMOTIDINE 20MG TAB 20 MG TAB PO SCH ×2 (09:42→19:50)
[2020-01-28 11:25] LABS: BASOPHILS % (AUTO) 0.8 % (0.0-5.0); HEMATOCRIT 31.9 % (36-48); LYMPHOCYTES % (AUTO) 27.2 % (21.0-51.0); MEAN CORPUSCULAR HEMOGLOBIN 31.3 pg (27.0-33.0); MEAN CORPUSCULAR HGB CONC 33.2 g/dL (32.0-36.0); MEAN CORPUSCULAR VOLUME 94.1 fL (79-99); MONOCYTES % (AUTO) 15.7 % (3.0-13.0); NEUTROPHILS % (AUTO) 51.3 % (40.0-77.0); PLATELET COUNT (AUTO) 51 K/uL (130-400); RED BLOOD CELL COUNT(AUTO) 3.39 MIL/uL (4.00-5.50); RED CELL DISTRIBUTION WIDTH 17.3 % (11.0-15.5); WHITE BLOOD COUNT (AUTO) 2.6 K/uL (4.8-10.8)
[2020-01-28 11:32] VITALS: BP 126/65
[2020-01-28 12:03] LABS: CREATININE 0.7 mg/dL (0.5-1.5); MAGNESIUM 1.7 mg/dL (1.80-2.40); POTASSIUM 3.7 mmol/L (3.5-5.1)
[2020-01-28 12:18] LABS: BASOPHILS % (MANUAL) 3 % (0-2); EOSINOPHILS % (MANUAL) 4 % (1-6); LYMPHOCYTES % (MANUAL) 28 % (22-44); MONOCYTES % (MANUAL) 16 % (2-9); SEGMENTED NEUTROPHILS % 49 % (40-70)
[2020-01-28 12:19] LABS: MAN.DIFF COMMENT-IMPRESSION MANUAL DIFFERENTIAL; PLATELET MORPHOLOGY COMMENT DECREASED
[2020-01-28] MEDS ORDERED: MAGNESIUM 2GM PREMIX 50ML 50 ML IV SCH (13:30)
[2020-01-28] MEDS ORDERED: LACTULOSE 20 GM/30 ML UDCUP PO SCH (13:30)
[2020-01-28] MEDS: LEVOTHYROXINE 100 MCG TABLET PO SCH (13:34)
[2020-01-28 16:00] VITALS: BP 121/60
[2020-01-28] MEDS: PRENATAL VITAMIN RX TABLET PO SCH (16:36)
--- NOTE | 2020-01-28 17:36 | NUR ---
SPOKE TO PT SPOUSE TO GIVE A BRIEF UPDATE ON PT STATUS.
[2020-01-28] MEDS: LACTULOSE 20 GM/30 ML UDCUP PO SCH (19:50)
[2020-01-28] MEDS: CYANOCOBALAMIN (VITAMIN B-12) 1,000 MCG TABLET PO SCH (19:52)
[2020-01-28 20:21] VITALS: BP 121/50
[2020-01-28] MEDS ORDERED: PREGABALIN 25 MG CAP PO SCH (21:00)
[2020-01-29] VITALS: BP 102/43
[2020-01-29] MEDS: LACTULOSE 20 GM/30 ML UDCUP PO SCH ×3 (02:06→12:58)
--- NOTE | 2020-01-29 02:29 | NUR ---
HEADACHE Pt states she couldn't sleep.she complained of headache and wants Tylenol.
--- NOTE | 2020-01-29 03:29 | NUR ---
MED EFFECT Pt asleep,arousable.
[2020-01-29 03:54] LABS: BASOPHILS % (AUTO) 0.8 % (0.0-5.0); EOSINOPHILS % (AUTO) 4.9 % (0.0-8.0); HEMATOCRIT 29.6 % (36-48); LYMPHOCYTES % (AUTO) 33.2 % (21.0-51.0); MEAN CORPUSCULAR HEMOGLOBIN 31.6 pg (27.0-33.0); MEAN CORPUSCULAR HGB CONC 33.4 g/dL (32.0-36.0); MEAN CORPUSCULAR VOLUME 94.6 fL (79-99); MONOCYTES % (AUTO) 12.6 % (3.0-13.0); NEUTROPHILS % (AUTO) 48.1 % (40.0-77.0); PLATELET COUNT (AUTO) 56 K/uL (130-400); RED BLOOD CELL COUNT(AUTO) 3.13 MIL/uL (4.00-5.50); RED CELL DISTRIBUTION WIDTH 17.1 % (11.0-15.5); WHITE BLOOD COUNT (AUTO) 2.5 K/uL (4.8-10.8)
[2020-01-29 03:57] VITALS: BP 95/44
[2020-01-29 04:05] LABS: ALBUMIN 2.4 g/dL (3.5-5.0); BILIRUBIN,TOTAL 2.6 mg/dL (0.2-1.0); CREATININE 0.8 mg/dL (0.5-1.5); POTASSIUM 3.5 mmol/L (3.5-5.1); TOTAL PROTEIN, SERUM 5.9 g/dL (6.0-8.3)
[2020-01-29] MEDS: LEVOTHYROXINE 100 MCG TABLET PO SCH (05:49)
[2020-01-29 08:27] VITALS: BP 104/50
[2020-01-29] MEDS ORDERED: ERGOCALCIFEROL (VITAMIN D2) 50,000 UNIT CAPSULE PO SCH (09:00)
[2020-01-29] MEDS ORDERED: FLUOXETINE HCL 20 MG CAPSULE PO SCH (09:00)
[2020-01-29] MEDS ORDERED: SPIRONOLACTONE 25 MG TAB PO SCH (09:00)
[2020-01-29] MEDS: CYANOCOBALAMIN (VITAMIN B-12) 1,000 MCG TABLET PO SCH (09:48)
[2020-01-29] MEDS: FAMOTIDINE 20MG TAB 20 MG TAB PO SCH (09:48)
[2020-01-29] MEDS: PRENATAL VITAMIN RX TABLET PO SCH (09:49)
[2020-01-29 14:46] VITALS: BP 109/49
[2020-01-29] MEDS: SODIUM CHLORIDE 0.9% 1000ML 1,000 ML IV SCH (17:49)
== END 2020-01-29 17:45 | disposition home or self-care (01) | DRG 52 ==
LOC: EDH 21:01 → EDHIP 21:02 → 3DH 01-27 19:26
PROVIDERS: ADMIT Family Medicine; ATTEND Family Medicine
DX: G93.40 Encephalopathy, unspecified (principal); K74.60 Unspecified cirrhosis of liver; M79.7 Fibromyalgia; E03.9 Hypothyroidism, unspecified; F32.9 Major depressive disorder, single episode, unspecified; M32.9 Systemic lupus erythematosus, unspecified; Z82.49 Family history of ischemic heart disease and other diseases of the circulatory system; Z85.3 Personal history of malignant neoplasm of breast; Z90.12 Acquired absence of left breast and nipple; Z90.710 Acquired absence of both cervix and uterus; Z98.84 Bariatric surgery status; Z90.49 Acquired absence of other specified parts of digestive tract
CPT/HCPCS: 36415; 70450; 80048; 80053; 80305; 81003; 82140; 82150; 82550; 83605; 83690; 83735; 83874; 84484; 85025; 85610; 85730; 87040; 87804; 87880; 93005; G0378; J3475; J7030

== ENCOUNTER 2020-02-18 04:55 | Emergency (ER) | payer MEDICAID ==
[~2020-02-18 04:55] MED LIST changes: -FURO20TA4 PO; +SPIR25TA PO
[2020-02-18 05:58] LABS: BASOPHILS % (AUTO) 0.7 % (0.0-5.0); EOSINOPHILS % (AUTO) 4.5 % (0.0-8.0); HEMATOCRIT 32.4 % (36-48); LYMPHOCYTES % (AUTO) 25.5 % (21.0-51.0); MEAN CORPUSCULAR HEMOGLOBIN 31.3 pg (27.0-33.0); MEAN CORPUSCULAR VOLUME 94.7 fL (79-99); MONOCYTES % (AUTO) 11.2 % (3.0-13.0); NEUTROPHILS % (AUTO) 58.1 % (40.0-77.0); PLATELET COUNT (AUTO) 60 K/uL (130-400); RED BLOOD CELL COUNT(AUTO) 3.42 MIL/uL (4.00-5.50); RED CELL DISTRIBUTION WIDTH 16.9 % (11.0-15.5); WHITE BLOOD COUNT (AUTO) 2.9 K/uL (4.8-10.8)
[2020-02-18] MEDS ORDERED: MAG HYDROX/AL HYDROX/SIMETH ES 30 ML SUSP UDCUP ONE (06:06)
[2020-02-18] MEDS ORDERED: LIDOCAINE HCL 2% VISCOUS 15 ML UDCUP ONE (06:06)
[2020-02-18] MEDS ORDERED: ONDANSETRON HCL 4 MG/2 ML VIAL ONE (06:07)
[2020-02-18] MEDS ORDERED: FAMOTIDINE/PF 20 MG/2 ML VIAL IV ONE (06:07)
[2020-02-18 06:10] LABS: ALBUMIN 2.7 g/dL (3.5-5.0); BILIRUBIN,TOTAL 2.1 mg/dL (0.2-1.0); CREATININE 0.7 mg/dL (0.5-1.5); TOTAL PROTEIN, SERUM 6.7 g/dL (6.0-8.3)
[2020-02-18 06:12] LABS: APPEARANCE,URINE Clear (CLEAR); BILIRUBIN,URINE Negative (NEGATIVE); COLOR,URINE Yellow (YELLOW); GLUCOSE, URINE (UA) Negative (NEGATIVE); KETONES,URINE Negative (NEGATIVE); LEUKOCYTE ESTERASE ,URINE Trace (NEGATIVE); NITRATE,URINE Negative (NEGATIVE); OCCULT BLOOD,URINE Negative (NEGATIVE); PROTEIN,URINE Negative (NEGATIVE)
[2020-02-18 06:26] LABS: BACTERIA,URINE None Seen /HPF (None Seen); RBC,URINE None Seen /HPF (0-1); SQUAMOUS EPITHELIAL CELL,UR Few /HPF (0-2); WBC,URINE 0-1 /HPF (0-1)
[2020-02-18 06:28] LABS: BAND NEUTROPHILS % (MANUAL) 2 % (0-2); BASOPHILS % (MANUAL) 2 % (0-2); LYMPHOCYTES % (MANUAL) 32 % (22-44); MAN.DIFF COMMENT-IMPRESSION MANUAL DIFFERENTIAL; MONOCYTES % (MANUAL) 10 % (2-9); REACTIVE LYMPHOCYTES 1 % (0-0); SEGMENTED NEUTROPHILS % 53 % (40-70)
[2020-02-18 06:29] LABS: PLATELET MORPHOLOGY COMMENT DECREASED
== END 2020-02-18 07:25 | disposition home or self-care (01) ==
LOC: EDH 04:55
DX: K29.70 Gastritis, unspecified, without bleeding (principal); K74.60 Unspecified cirrhosis of liver; M79.7 Fibromyalgia; F32.9 Major depressive disorder, single episode, unspecified; E03.9 Hypothyroidism, unspecified; Z90.49 Acquired absence of other specified parts of digestive tract; Z90.710 Acquired absence of both cervix and uterus
CPT/HCPCS: 36415; 74176; 80053; 81001; 82550; 83690; 84484; 85025; 93005; 96374; 96375; 99285; J2405; J3490

== ENCOUNTER 2020-05-15 13:10 | Inpatient (IN) | payer MEDICAID ==
[~2020-05-15] VITALS: Ht 167.6 cm; Wt 112.5 kg
[~2020-05-15 13:10] MED LIST changes: -ERGO50CA PO; +MULT-1203 PO; -ONDA4TAB4 PO; +PANT40SU PO; -PREN-61 PO; +RIFA550T PO
[2020-05-15 14:11] LABS: BASOPHILS % (AUTO) 1.1 % (0.0-5.0); EOSINOPHILS % (AUTO) 3.7 % (0.0-8.0); HEMATOCRIT 33.7 % (36-48); MEAN CORPUSCULAR HEMOGLOBIN 31.3 pg (27.0-33.0); MEAN CORPUSCULAR HGB CONC 32.9 g/dL (32.0-36.0); MEAN CORPUSCULAR VOLUME 94.9 fL (79-99); MONOCYTES % (AUTO) 10.7 % (3.0-13.0); NEUTROPHILS % (AUTO) 59.1 % (40.0-77.0); PLATELET COUNT (AUTO) 64 K/uL (130-400); RED BLOOD CELL COUNT(AUTO) 3.55 MIL/uL (4.00-5.50); RED CELL DISTRIBUTION WIDTH 17.9 % (11.0-15.5); WHITE BLOOD COUNT (AUTO) 2.7 K/uL (4.8-10.8)
[2020-05-15 14:22] LABS: INR 1.24 (0.85-1.15)
[2020-05-15 14:23] LABS: CREATININE 0.8 mg/dL (0.5-1.5); PARTIAL THROMBOPLASTIN TIME 30.1 SEC (26.3-35.5)
[2020-05-15 14:28] LABS: ALBUMIN 2.7 g/dL (3.5-5.0); BILIRUBIN,TOTAL 1.9 mg/dL (0.2-1.0); TOTAL PROTEIN, SERUM 6.7 g/dL (6.0-8.3)
[2020-05-15 14:43] LABS: BASOPHILS % (MANUAL) 1 % (0-2); EOSINOPHILS % (MANUAL) 1 % (1-6); LYMPHOCYTES % (MANUAL) 31 % (22-44); MONOCYTES % (MANUAL) 5 % (2-9); SEGMENTED NEUTROPHILS % 62 % (40-70)
[2020-05-15 14:44] LABS: MAN.DIFF COMMENT-IMPRESSION MANUAL DIFFERENTIAL
[2020-05-15] MEDS ORDERED: LACTULOSE 20 GM/30 ML UDCUP ONE (16:07)
[2020-05-15] MEDS: CEFTRIAXONE 1G VIAL IVP SCH (16:15)
[2020-05-15] MEDS ORDERED: THIAMINE HCL 100 MG TABLET PO SCH (16:30)
[2020-05-15] MEDS ORDERED: CYANOCOBALAMIN (VITAMIN B-12) 1,000 MCG TABLET PO SCH (16:30)
[2020-05-15] MEDS ORDERED: FOLIC ACID 1 MG TABLET PO SCH (16:30)
[2020-05-15 17:49] LABS: APPEARANCE,URINE Clear (CLEAR); BILIRUBIN,URINE Negative (NEGATIVE); COLOR,URINE Yellow (YELLOW); GLUCOSE, URINE (UA) Negative (NEGATIVE); KETONES,URINE Negative (NEGATIVE); LEUKOCYTE ESTERASE ,URINE Trace (NEGATIVE); NITRATE,URINE Negative (NEGATIVE); OCCULT BLOOD,URINE Negative (NEGATIVE); PH,URINE 5.5 (5.0-8.0); PROTEIN,URINE Negative (NEGATIVE)
[2020-05-15] MEDS: LACTULOSE 20 GM/30 ML UDCUP PO SCH ×2 (18:00→23:47)
[2020-05-15] MEDS ORDERED: CYANOCOBALAMIN (VITAMIN B-12) 1,000 MCG TABLET ONE (18:09)
[2020-05-15] MEDS ORDERED: THIAMINE HCL 100 MG TABLET ONE (18:09)
[2020-05-15 18:10] LABS: BACTERIA,URINE Few /HPF (None Seen); MUCUS,URINE Few LPF (None Seen); SQUAMOUS EPITHELIAL CELL,UR 0-2 /HPF (0-2)
[2020-05-15] MEDS ORDERED: FOLIC ACID 1 MG TABLET ONE (18:10)
[2020-05-15] MEDS ORDERED: CEFTRIAXONE 1G VIAL ONE (18:11)
[2020-05-15 19:40] VITALS: BP 133/71
[2020-05-15 23:38] VITALS: BP 110/58
[2020-05-15] MEDS: PANTOPRAZOLE 40 MG TAB DR PO SCH (23:46)
[2020-05-16] MEDS: LACTATED RINGERS 1000ML 1,000 ML IV SCH ×2 (00:17→08:32)
[2020-05-16 03:30] VITALS: BP 111/55
[2020-05-16 05:46] LABS: BASOPHILS % (AUTO) 0.8 % (0.0-5.0); EOSINOPHILS % (AUTO) 4.9 % (0.0-8.0); HEMATOCRIT 30.9 % (36-48); LYMPHOCYTES % (AUTO) 33.1 % (21.0-51.0); MEAN CORPUSCULAR HEMOGLOBIN 30.7 pg (27.0-33.0); MEAN CORPUSCULAR HGB CONC 32.7 g/dL (32.0-36.0); MEAN CORPUSCULAR VOLUME 93.9 fL (79-99); MONOCYTES % (AUTO) 10.6 % (3.0-13.0); NEUTROPHILS % (AUTO) 50.6 % (40.0-77.0); PLATELET COUNT (AUTO) 58 K/uL (130-400); RED BLOOD CELL COUNT(AUTO) 3.29 MIL/uL (4.00-5.50); RED CELL DISTRIBUTION WIDTH 17.6 % (11.0-15.5); WHITE BLOOD COUNT (AUTO) 2.5 K/uL (4.8-10.8)
[2020-05-16 06:18] LABS: CREATININE 0.7 mg/dL (0.5-1.5); MAGNESIUM 1.6 mg/dL (1.80-2.40); POTASSIUM 3.7 mmol/L (3.5-5.1); THYROID STIMULATING HORMONE 1.19 uIU/mL (0.36-3.74)
[2020-05-16 07:59] VITALS: BP 123/51
[2020-05-16] MEDS: CYANOCOBALAMIN (VITAMIN B-12) 1,000 MCG TABLET PO SCH ×2 (08:31→21:22)
[2020-05-16] MEDS: THIAMINE HCL 100 MG TABLET PO SCH (08:31)
[2020-05-16] MEDS: PANTOPRAZOLE 40 MG TAB DR PO SCH ×2 (08:31→21:21)
[2020-05-16] MEDS: FOLIC ACID 1 MG TABLET PO SCH (08:32)
[2020-05-16] MEDS: LACTULOSE 20 GM/30 ML UDCUP PO SCH ×3 (08:32→18:00)
[2020-05-16 11:00] VITALS: BP 125/65
[2020-05-16 16:00] VITALS: BP 106/53
[2020-05-16] MEDS: CEFTRIAXONE 1G VIAL IVP SCH (16:42)
[2020-05-16 19:54] VITALS: BP 148/66
[2020-05-16 23:31] VITALS: BP 134/61
[2020-05-16] MEDS ORDERED: MORPHINE 2 MG SYG ONE (23:51)
[2020-05-16] MEDS: MORPHINE 2 MG SYG IVP PRN (23:55)
[2020-05-17 03:26] VITALS: BP 125/50
[2020-05-17 05:39] LABS: BASOPHILS % (AUTO) 1.1 % (0.0-5.0); EOSINOPHILS % (AUTO) 4.9 % (0.0-8.0); LYMPHOCYTES % (AUTO) 32.1 % (21.0-51.0); MEAN CORPUSCULAR HEMOGLOBIN 30.7 pg (27.0-33.0); MEAN CORPUSCULAR HGB CONC 32.6 g/dL (32.0-36.0); MEAN CORPUSCULAR VOLUME 94.2 fL (79-99); MONOCYTES % (AUTO) 14.7 % (3.0-13.0); NEUTROPHILS % (AUTO) 47.2 % (40.0-77.0); PLATELET COUNT (AUTO) 55 K/uL (130-400); RED BLOOD CELL COUNT(AUTO) 3.29 MIL/uL (4.00-5.50); RED CELL DISTRIBUTION WIDTH 17.7 % (11.0-15.5); WHITE BLOOD COUNT (AUTO) 2.7 K/uL (4.8-10.8)
[2020-05-17] MEDS: LACTULOSE 20 GM/30 ML UDCUP PO SCH ×5 (06:00→21:04)
[2020-05-17] MEDS: LEVOTHYROXINE 100 MCG TABLET PO SCH (06:00)
[2020-05-17 06:16] LABS: ALBUMIN 2.4 g/dL (3.5-5.0); BILIRUBIN,TOTAL 1.7 mg/dL (0.2-1.0); CREATININE 0.8 mg/dL (0.5-1.5); POTASSIUM 3.8 mmol/L (3.5-5.1); TOTAL PROTEIN, SERUM 6.1 g/dL (6.0-8.3)
[2020-05-17] MEDS: PANTOPRAZOLE 40 MG TAB DR PO SCH ×2 (08:10→21:04)
[2020-05-17] MEDS: FOLIC ACID 1 MG TABLET PO SCH (08:10)
[2020-05-17] MEDS: FLUOXETINE HCL 20 MG CAPSULE PO SCH (08:10)
[2020-05-17] MEDS: THIAMINE HCL 100 MG TABLET PO SCH (08:10)
[2020-05-17] MEDS: RIFAXIMIN 200 MG TABLET PO SCH ×2 (08:10→21:04)
[2020-05-17] MEDS: CYANOCOBALAMIN (VITAMIN B-12) 1,000 MCG TABLET PO SCH ×3 (08:11→21:04)
[2020-05-17] MEDS: SPIRONOLACTONE 25 MG TAB PO SCH (08:18)
[2020-05-17 08:24] VITALS: BP 101/72
[2020-05-17 11:14] VITALS: BP 123/56
[2020-05-17 16:12] VITALS: BP 124/66
[2020-05-17] MEDS: CEFTRIAXONE 1G VIAL IVP SCH (17:08)
[2020-05-17] MEDS: MORPHINE 2 MG SYG IVP PRN (17:17)
[2020-05-17 19:43] VITALS: BP 126/62
[2020-05-17 23:31] VITALS: BP 137/55
[2020-05-18 03:43] VITALS: BP 114/59
[2020-05-18] MEDS: LEVOTHYROXINE 100 MCG TABLET PO SCH (06:00)
[2020-05-18 06:10] LABS: BASOPHILS % (AUTO) 0.8 % (0.0-5.0); EOSINOPHILS % (AUTO) 5.1 % (0.0-8.0); HEMATOCRIT 31.5 % (36-48); LYMPHOCYTES % (AUTO) 31.9 % (21.0-51.0); MEAN CORPUSCULAR HEMOGLOBIN 30.5 pg (27.0-33.0); MEAN CORPUSCULAR HGB CONC 32.1 g/dL (32.0-36.0); MEAN CORPUSCULAR VOLUME 95.2 fL (79-99); MONOCYTES % (AUTO) 16.7 % (3.0-13.0); NEUTROPHILS % (AUTO) 45.1 % (40.0-77.0); PLATELET COUNT (AUTO) 51 K/uL (130-400); RED BLOOD CELL COUNT(AUTO) 3.31 MIL/uL (4.00-5.50); RED CELL DISTRIBUTION WIDTH 17.5 % (11.0-15.5); WHITE BLOOD COUNT (AUTO) 2.6 K/uL (4.8-10.8)
[2020-05-18 06:16] LABS: ALBUMIN 2.3 g/dL (3.5-5.0); BILIRUBIN,TOTAL 1.6 mg/dL (0.2-1.0); CREATININE 0.8 mg/dL (0.5-1.5); POTASSIUM 3.6 mmol/L (3.5-5.1)
[2020-05-18 06:39] LABS: BASOPHILS % (MANUAL) 5 % (0-2); EOSINOPHILS % (MANUAL) 4 % (1-6); LYMPHOCYTES % (MANUAL) 23 % (22-44); MAN.DIFF COMMENT-IMPRESSION MANUAL DIFFERENTIAL; MONOCYTES % (MANUAL) 14 % (2-9); PLATELET MORPHOLOGY COMMENT DECREASED; REACTIVE LYMPHOCYTES 1 % (0-0); SEGMENTED NEUTROPHILS % 53 % (40-70)
[2020-05-18 08:02] VITALS: BP 119/58
[2020-05-18] MEDS: CYANOCOBALAMIN (VITAMIN B-12) 1,000 MCG TABLET PO SCH ×2 (09:00→10:37)
[2020-05-18] MEDS ORDERED: MAGNESIUM 2GM PREMIX 50ML 50 ML IV SCH ×2 (09:00→09:30)
[2020-05-18] MEDS: LACTULOSE 20 GM/30 ML UDCUP PO SCH ×3 (10:33→17:46)
[2020-05-18] MEDS: RIFAXIMIN 200 MG TABLET PO SCH (10:36)
[2020-05-18] MEDS: FOLIC ACID 1 MG TABLET PO SCH (10:37)
[2020-05-18] MEDS: THIAMINE HCL 100 MG TABLET PO SCH (10:37)
[2020-05-18] MEDS: SPIRONOLACTONE 25 MG TAB PO SCH (10:38)
[2020-05-18] MEDS: FLUOXETINE HCL 20 MG CAPSULE PO SCH (10:38)
[2020-05-18] MEDS: PANTOPRAZOLE 40 MG TAB DR PO SCH (10:38)
[2020-05-18 11:39] VITALS: BP 124/62
[2020-05-18] MEDS: CEFTRIAXONE 1G VIAL IVP SCH (16:15)
[2020-05-18 17:03] VITALS: BP 120/55
[2020-09-01] MEDS ORDERED: LORA10TA7 PO (18:05)
[2020-09-03] MEDS ORDERED: RIFA550T PO (15:49)
== END 2020-05-18 18:00 | disposition home or self-care (01) | DRG 279 ==
LOC: EDH 13:10 → OBSVTOIN 13:11 → EDHIP 13:11 → 3AH 19:41
PROVIDERS: ADMIT Internal Medicine; ATTEND Internal Medicine
DX: K72.90 Hepatic failure, unspecified without coma (principal); D61.818 Other pancytopenia; E66.01 Morbid (severe) obesity due to excess calories; R16.1 Splenomegaly, not elsewhere classified; Z68.41 Body mass index [BMI] 40.0-44.9, adult; K76.6 Portal hypertension; K74.60 Unspecified cirrhosis of liver; E03.9 Hypothyroidism, unspecified; Z20.822 Contact with and (suspected) exposure to COVID-19; I10 Essential (primary) hypertension; F32.9 Major depressive disorder, single episode, unspecified; R10.11 Right upper quadrant pain; Z90.710 Acquired absence of both cervix and uterus; Z90.12 Acquired absence of left breast and nipple; Z98.84 Bariatric surgery status
CPT/HCPCS: 36415; 70450; 71045; 74176; 76700; 80048; 80053; 81001; 82140; 82270; 83605; 83735; 84145; 84443; 84484; 85025; 85610; 85730; 87040; 87088; 87426; 93005; G0378; J0696; J3475; J7120; U0003

== ENCOUNTER 2020-07-11 21:01 | Inpatient (IN) | payer MEDICAID ==
[~2020-07-11] VITALS: Ht 167.6 cm; Wt 115.8 kg
[~2020-07-11 21:01] MED LIST changes: -LACT10SO9 PO
[2020-07-11] MEDS ORDERED: 0.9%NACL 1000ML 1,000 ML IV ONE (21:30)
[2020-07-11] MEDS ORDERED: ONDANSETRON 4MG INJ ONE (21:30)
[2020-07-11 21:33] LABS: APPEARANCE,URINE Clear (CLEAR); BILIRUBIN,URINE Negative (NEGATIVE); COLOR,URINE Yellow (YELLOW); GLUCOSE, URINE (UA) Negative (NEGATIVE); KETONES,URINE Negative (NEGATIVE); LEUKOCYTE ESTERASE ,URINE Negative (NEGATIVE); NITRATE,URINE Negative (NEGATIVE); OCCULT BLOOD,URINE Negative (NEGATIVE); PROTEIN,URINE Negative (NEGATIVE)
[2020-07-11] MEDS ORDERED: KETOROLAC 30MG VIAL (30MG/ML) ONE (22:01)
[2020-07-11] MEDS ORDERED: FAMOTIDINE 20MG VIAL IV ONE (22:02)
[2020-07-11 22:03] LABS: BASOPHILS % (AUTO) 1.3 % (0.0-5.0); EOSINOPHILS % (AUTO) 4.5 % (0.0-8.0); HEMATOCRIT 31.5 % (36-48); LYMPHOCYTES % (AUTO) 29.7 % (21.0-51.0); MEAN CORPUSCULAR VOLUME 93.8 fL (79-99); MONOCYTES % (AUTO) 12.8 % (3.0-13.0); NEUTROPHILS % (AUTO) 51.7 % (40.0-77.0); PLATELET COUNT (AUTO) 63 K/uL (130-400); RED BLOOD CELL COUNT(AUTO) 3.36 MIL/uL (4.00-5.50); RED CELL DISTRIBUTION WIDTH 17.3 % (11.0-15.5); WHITE BLOOD COUNT (AUTO) 3.1 K/uL (4.8-10.8)
[2020-07-11] MEDS ORDERED: LIDOCAINE HCL 2% VISCOUS 15 ML UDCUP ONE (22:03)
[2020-07-11] MEDS ORDERED: MAGNESIUM HYDROXIDE 30 ML/UDCUP ONE (22:03)
[2020-07-11 22:17] LABS: CREATININE 0.8 mg/dL (0.5-1.5)
[2020-07-11 22:22] LABS: ALBUMIN 2.8 g/dL (3.5-5.0); BILIRUBIN,TOTAL 1.8 mg/dL (0.2-1.0); TOTAL PROTEIN, SERUM 6.8 g/dL (6.0-8.3)
[2020-07-11] MEDS ORDERED: LACTULOSE 20 GM/30 ML UDCUP ONE (22:28)
[2020-07-11 22:30] LABS: INR 1.21 (0.85-1.15)
[2020-07-11 22:32] LABS: PARTIAL THROMBOPLASTIN TIME 28.8 SEC (26.3-35.5)
[2020-07-12] MEDS ORDERED: ALBUTEROL 0.083% 2.5 MG/3 ML INH IH PRN (00:15)
[2020-07-12] MEDS ORDERED: ACETAMINOPHEN 325 MG TAB PO PRN (00:15)
[2020-07-12] MEDS ORDERED: LACTATED RINGERS 1000ML 1,000 ML IV SCH (00:15)
[2020-07-12] MEDS ORDERED: DiphenhydrAMINE HCL 50 MG/ML VIAL IV PRN (00:15)
[2020-07-12] MEDS ORDERED: DIPHENHYDRAMINE HCL 25 MG CAPSULE PO PRN (00:15)
[2020-07-12] MEDS ORDERED: GUAIFENESIN-DM 200/20 MG 10 ML PO PRN (00:15)
[2020-07-12] MEDS ORDERED: MAG/ALUM/SIMETH 30 ML UDCUP PO PRN (00:15)
[2020-07-12] MEDS ORDERED: NITROGLYCERIN 0.4 MG SL TAB SL PRN (00:15)
[2020-07-12] MEDS: LACTULOSE 20 GM/30 ML UDCUP PO SCH ×4 (00:15→17:58)
[2020-07-12] MEDS ORDERED: LACTULOSE 20 GM/30 ML UDCUP PO PRN (00:15)
[2020-07-12] MEDS ORDERED: ONDANSETRON 4MG INJ IV PRN (00:15)
[2020-07-12] MEDS ORDERED: LACTULOSE 20 GM/30 ML UDCUP ONE (00:35)
[2020-07-12 02:20] VITALS: BP 123/75
[2020-07-12] MEDS: CEFTRIAXONE 1G VIAL IVP SCH (02:45)
[2020-07-12 07:45] LABS: BASOPHILS % (AUTO) 0.4 % (0.0-5.0); EOSINOPHILS % (AUTO) 4.5 % (0.0-8.0); HEMATOCRIT 30.7 % (36-48); MEAN CORPUSCULAR HEMOGLOBIN 30.3 pg (27.0-33.0); MEAN CORPUSCULAR HGB CONC 32.2 g/dL (32.0-36.0); MEAN CORPUSCULAR VOLUME 93.9 fL (79-99); MONOCYTES % (AUTO) 11.5 % (3.0-13.0); NEUTROPHILS % (AUTO) 53.6 % (40.0-77.0); PLATELET COUNT (AUTO) 58 K/uL (130-400); RED BLOOD CELL COUNT(AUTO) 3.27 MIL/uL (4.00-5.50); RED CELL DISTRIBUTION WIDTH 17.2 % (11.0-15.5); WHITE BLOOD COUNT (AUTO) 2.4 K/uL (4.8-10.8)
[2020-07-12 08:00] VITALS: BP 118/73
[2020-07-12 08:00] LABS: ALBUMIN 2.6 g/dL (3.5-5.0); BILIRUBIN,TOTAL 1.8 mg/dL (0.2-1.0); POTASSIUM 3.9 mmol/L (3.5-5.1); TOTAL PROTEIN, SERUM 6.6 g/dL (6.0-8.3)
[2020-07-12 08:44] LABS: LYMPHOCYTES % (MANUAL) 36 % (22-44); MONOCYTES % (MANUAL) 4 % (2-9); PLATELET MORPHOLOGY COMMENT MARKED DECREASE; SEGMENTED NEUTROPHILS % 60 % (40-70)
[2020-07-12] MEDS: FAMOTIDINE 20MG TAB PO SCH ×2 (10:25→20:29)
[2020-07-12] MEDS: ENOXAPARIN SODIUM 30 MG/0.3 ML SQ SCH (10:26)
[2020-07-12 11:38] VITALS: BP 114/68
[2020-07-12] MEDS: ACETAMINOPHEN 325 MG TAB PO PRN ×2 (12:49→17:28)
[2020-07-12 16:00] VITALS: BP 114/63
[2020-07-12 20:31] VITALS: BP 116/49
[2020-07-12 23:45] VITALS: BP 108/50
[2020-07-13] MEDS: CEFTRIAXONE 1G VIAL IVP SCH (01:34)
[2020-07-13] MEDS: LACTULOSE 20 GM/30 ML UDCUP PO SCH ×3 (01:35→11:56)
[2020-07-13 04:02] VITALS: BP 101/49
[2020-07-13 05:02] LABS: BASOPHILS % (AUTO) 0.5 % (0.0-5.0); EOSINOPHILS % (AUTO) 3.2 % (0.0-8.0); HEMATOCRIT 27.2 % (36-48); LYMPHOCYTES % (AUTO) 21.1 % (21.0-51.0); MEAN CORPUSCULAR HEMOGLOBIN 30.6 pg (27.0-33.0); MEAN CORPUSCULAR HGB CONC 32.7 g/dL (32.0-36.0); MEAN CORPUSCULAR VOLUME 93.5 fL (79-99); MONOCYTES % (AUTO) 10.8 % (3.0-13.0); NEUTROPHILS % (AUTO) 64.2 % (40.0-77.0); PLATELET COUNT (AUTO) 47 K/uL (130-400); RED BLOOD CELL COUNT(AUTO) 2.91 MIL/uL (4.00-5.50); RED CELL DISTRIBUTION WIDTH 17.2 % (11.0-15.5); WHITE BLOOD COUNT (AUTO) 4.1 K/uL (4.8-10.8)
[2020-07-13 05:15] LABS: CREATININE 0.8 mg/dL (0.5-1.5); POTASSIUM 3.5 mmol/L (3.5-5.1)
[2020-07-13 08:18] VITALS: BP 116/61
[2020-07-13] MEDS: ENOXAPARIN SODIUM 30 MG/0.3 ML SQ SCH (09:00)
[2020-07-13] MEDS: FAMOTIDINE 20MG TAB PO SCH (09:28)
[2020-07-13 11:27] VITALS: BP 115/63
[2020-07-13] MEDS ORDERED: LACT PO (12:11)
[2020-09-01] MEDS ORDERED: LORA10TA7 PO (18:05)
[2020-09-03] MEDS ORDERED: RIFA550T PO (15:49)
== END 2020-07-13 15:00 | disposition home or self-care (01) | DRG 279 ==
LOC: EDH 21:01 → EDHIP 21:02 → OBSVTOIN 21:02 → 3BH 07-12 02:00
PROVIDERS: ADMIT Family Medicine; ATTEND Family Medicine
DX: K72.00 Acute and subacute hepatic failure without coma (principal); K74.60 Unspecified cirrhosis of liver; E66.01 Morbid (severe) obesity due to excess calories; D61.818 Other pancytopenia; E03.9 Hypothyroidism, unspecified; F32.9 Major depressive disorder, single episode, unspecified; I10 Essential (primary) hypertension; Z20.822 Contact with and (suspected) exposure to COVID-19; Z82.49 Family history of ischemic heart disease and other diseases of the circulatory system; Z90.12 Acquired absence of left breast and nipple; Z90.710 Acquired absence of both cervix and uterus; Z85.3 Personal history of malignant neoplasm of breast; Z98.84 Bariatric surgery status; Z68.41 Body mass index [BMI] 40.0-44.9, adult; Z90.49 Acquired absence of other specified parts of digestive tract
CPT/HCPCS: 36415; 71045; 80048; 80053; 81003; 82140; 82550; 83690; 84484; 85025; 85610; 85730; 87426; 93005; 99291; G0378; J0696; J1650; J1885; J2405; J3490; J7030; J7120; U0003

== ENCOUNTER 2020-07-30 18:21 | Emergency (ER) | payer MEDICAID ==
[~2020-07-30 18:21] MED LIST changes: +LACT PO
[2020-07-30] MEDS ORDERED: AZITHROMYCIN 500MG+NS 250ML 250 ML IV ONE (20:10)
[2020-07-30] MEDS ORDERED: ACETAMINOPHEN 325 MG TAB ONE (20:11)
[2020-07-30] MEDS ORDERED: CEFTRIAXONE SODIUM 1 GM ONE (20:11)
[2020-07-30 20:14] LABS: BASOPHILS % (AUTO) 0.5 % (0.0-5.0); HEMATOCRIT 32.9 % (36-48); LYMPHOCYTES % (AUTO) 14.9 % (21.0-51.0); MEAN CORPUSCULAR HEMOGLOBIN 30.6 pg (27.0-33.0); MEAN CORPUSCULAR HGB CONC 32.8 g/dL (32.0-36.0); MEAN CORPUSCULAR VOLUME 93.2 fL (79-99); MONOCYTES % (AUTO) 10.7 % (3.0-13.0); NEUTROPHILS % (AUTO) 70.7 % (40.0-77.0); PLATELET COUNT (AUTO) 86 K/uL (130-400); RED BLOOD CELL COUNT(AUTO) 3.53 MIL/uL (4.00-5.50); RED CELL DISTRIBUTION WIDTH 17.7 % (11.0-15.5)
[2020-07-30 20:22] LABS: INR 1.15 (0.85-1.15); PROTHROMBIN TIME 12.4 SEC (9.6-11.6)
[2020-07-30 20:24] LABS: PARTIAL THROMBOPLASTIN TIME 28.8 SEC (26.3-35.5)
[2020-07-30 20:31] LABS: CARBON DIOXIDE 22 mmol/L (21-32); CHLORIDE 107 mmol/L (101-111); CREATININE 0.7 mg/dL (0.5-1.5); GLOMERULAR FILTR. RATE CALC 92 mL/min (>60); GLUCOSE,RANDOM 92 mg/dL (70-105); POTASSIUM 4.4 mmol/L (3.5-5.1); SODIUM SERUM 139 mmol/L (136-145); UREA NITROGEN, BLOOD 9 mg/dL (7-18)
[2020-07-30] MEDS ORDERED: IOHEXOL-350 75 ML VIAL IV ONE (20:40)
[2020-07-30 20:41] LABS: B-TYPE NATRIURETIC PEPTIDE 52 pg/mL (0-100)
[2020-07-30 20:42] LABS: ALANINE AMINOTRANSFERASE 40 U/L (12-78); ALBUMIN 2.9 g/dL (3.5-5.0); ASPARTATE AMINOTRANSFERASE 77 U/L (10-37); BILIRUBIN,TOTAL 2.5 mg/dL (0.2-1.0); CREATINE KINASE, TOTAL 207 U/L (21-232); MYOGLOBIN 36 ng/mL (10-92); TOTAL PROTEIN, SERUM 7.5 g/dL (6.0-8.3); TROPONIN I < 0.04 ng/mL (0.00-0.06)
[2020-07-30 22:26] LABS: APPEARANCE,URINE Clear (CLEAR); BILIRUBIN,URINE Negative (NEGATIVE); COLOR,URINE Yellow (YELLOW); GLUCOSE, URINE (UA) Negative (NEGATIVE); KETONES,URINE Negative (NEGATIVE); LEUKOCYTE ESTERASE ,URINE Moderate (NEGATIVE); NITRATE,URINE Negative (NEGATIVE); OCCULT BLOOD,URINE Negative (NEGATIVE); PROTEIN,URINE Negative (NEGATIVE)
[2020-07-30 22:43] LABS: BACTERIA,URINE Rare /HPF (None Seen); RBC,URINE None Seen /HPF (0-1); SQUAMOUS EPITHELIAL CELL,UR None Seen /HPF (0-2)
== END 2020-07-30 23:34 | disposition home or self-care (01) ==
LOC: EDH 18:21
DX: N39.0 Urinary tract infection, site not specified (principal); R50.9 Fever, unspecified; Z20.822 Contact with and (suspected) exposure to COVID-19; F32.9 Major depressive disorder, single episode, unspecified; E03.9 Hypothyroidism, unspecified
CPT/HCPCS: 36415; 71045; 74177; 80053; 81001; 82550; 83605; 83874; 83880; 84145; 84484; 85025; 85610; 85730; 86140; 86900; 86901; 87040 ×2; 87088; 87426; 87804 ×2; 93005; 96365; 96366; 96368; 99285; J0456; J0696; Q9967; U0003

== ENCOUNTER 2020-08-11 13:35 | Emergency (ER) | payer MEDICAID ==
[2020-09-01] MEDS ORDERED: LORA10TA7 PO (18:05)
[2020-09-03] MEDS ORDERED: RIFA550T PO (15:49)
== END 2020-08-11 14:29 | disposition home or self-care (01) ==
LOC: EDH 13:35
DX: H11.32 Conjunctival hemorrhage, left eye (principal); E03.9 Hypothyroidism, unspecified; M32.9 Systemic lupus erythematosus, unspecified; M79.7 Fibromyalgia; F32.9 Major depressive disorder, single episode, unspecified; Z85.3 Personal history of malignant neoplasm of breast; Z90.49 Acquired absence of other specified parts of digestive tract; Z90.710 Acquired absence of both cervix and uterus
CPT/HCPCS: 99281

== ENCOUNTER 2020-09-27 23:40 | Emergency (ER) | payer MEDICAID ==
[~2020-09-27 23:40] MED LIST changes: +LORA10TA7 PO; -PANT40SU PO
[2020-09-28 00:27] LABS: BASOPHILS % (AUTO) 0.6 % (0.0-5.0); EOSINOPHILS % (AUTO) 5.9 % (0.0-8.0); HEMATOCRIT 33.8 % (36-48); LYMPHOCYTES % (AUTO) 32.6 % (21.0-51.0); MEAN CORPUSCULAR HEMOGLOBIN 30.2 pg (27.0-33.0); MEAN CORPUSCULAR HGB CONC 32.8 g/dL (32.0-36.0); MEAN CORPUSCULAR VOLUME 92.1 fL (79-99); NEUTROPHILS % (AUTO) 50.9 % (40.0-77.0); PLATELET COUNT (AUTO) 66 K/uL (130-400); RED BLOOD CELL COUNT(AUTO) 3.67 MIL/uL (4.00-5.50); WHITE BLOOD COUNT (AUTO) 3.4 K/uL (4.8-10.8)
[2020-09-28 00:31] LABS: APPEARANCE,URINE Clear (CLEAR); BILIRUBIN,URINE Negative (NEGATIVE); COLOR,URINE Yellow (YELLOW); GLUCOSE, URINE (UA) Negative (NEGATIVE); KETONES,URINE Negative (NEGATIVE); LEUKOCYTE ESTERASE ,URINE Negative (NEGATIVE); NITRATE,URINE Negative (NEGATIVE); OCCULT BLOOD,URINE Negative (NEGATIVE); PH,URINE 7.5 (5.0-8.0); PROTEIN,URINE Negative (NEGATIVE)
[2020-09-28 00:33] LABS: CREATININE 0.9 mg/dL (0.5-1.5); POTASSIUM 4.1 mmol/L (3.5-5.1)
[2020-09-28 00:39] LABS: INR 1.16 (0.85-1.15); PROTHROMBIN TIME 12.5 SEC (9.6-11.6)
[2020-09-28 00:40] LABS: ALBUMIN 2.9 g/dL (3.5-5.0); BILIRUBIN,TOTAL 1.9 mg/dL (0.2-1.0); PARTIAL THROMBOPLASTIN TIME 28.8 SEC (26.3-35.5); TOTAL PROTEIN, SERUM 7.1 g/dL (6.0-8.3)
[2020-09-28] MEDS ORDERED: LACTULOSE 20 GM/30 ML UDCUP ONE (00:56)
== END 2020-09-28 06:14 | disposition home or self-care (01) ==
LOC: EDH 23:40
DX: K74.60 Unspecified cirrhosis of liver (principal); E72.20 Disorder of urea cycle metabolism, unspecified; R53.83 Other fatigue; R41.0 Disorientation, unspecified; R47.81 Slurred speech; M79.7 Fibromyalgia; E03.9 Hypothyroidism, unspecified; M32.9 Systemic lupus erythematosus, unspecified; Z85.3 Personal history of malignant neoplasm of breast
CPT/HCPCS: 36415; 80053; 81003; 82140; 83690; 84484; 85025; 85610; 85730

== ENCOUNTER 2020-11-04 23:50 | Emergency (ER) | payer MEDICAID ==
[~2020-11-04] VITALS: Ht 167.6 cm; Wt 115.7 kg
[2020-11-04 23:53] VITALS: BP 113/41
[2020-11-05] MEDS ORDERED: ACETAMINOPHEN 500 MG TABLET ONE (00:21)
[2020-11-05 01:00] LABS: CREATININE 0.8 mg/dL (0.5-1.5)
[2020-11-05 01:03] LABS: BASOPHILS % (AUTO) 0.9 % (0.0-5.0); EOSINOPHILS % (AUTO) 3.8 % (0.0-8.0); HEMATOCRIT 30.6 % (36-48); LYMPHOCYTES % (AUTO) 19.4 % (21.0-51.0); MEAN CORPUSCULAR HGB CONC 32.7 g/dL (32.0-36.0); MEAN CORPUSCULAR VOLUME 91.9 fL (79-99); MONOCYTES % (AUTO) 12.5 % (3.0-13.0); NEUTROPHILS % (AUTO) 63.1 % (40.0-77.0); PLATELET COUNT (AUTO) 59 K/uL (130-400); RED BLOOD CELL COUNT(AUTO) 3.33 MIL/uL (4.00-5.50); RED CELL DISTRIBUTION WIDTH 18.3 % (11.0-15.5); WHITE BLOOD COUNT (AUTO) 3.2 K/uL (4.8-10.8)
[2020-11-05 01:05] LABS: ALBUMIN 2.7 g/dL (3.5-5.0); TOTAL PROTEIN, SERUM 6.8 g/dL (6.0-8.3)
[2020-11-05 01:47] LABS: PLATELET MORPHOLOGY COMMENT MARKED DECREASE
== END 2020-11-05 03:05 | disposition home or self-care (01) ==
LOC: EDH 23:50
DX: J06.9 Acute upper respiratory infection, unspecified (principal); M32.9 Systemic lupus erythematosus, unspecified; M79.7 Fibromyalgia; E05.90 Thyrotoxicosis, unspecified without thyrotoxic crisis or storm; Z85.3 Personal history of malignant neoplasm of breast; Z98.84 Bariatric surgery status; Z79.899 Other long term (current) drug therapy
CPT/HCPCS: 36415; 71045; 80053; 84484; 85025; 87804

== ENCOUNTER 2020-12-16 15:47 | Emergency (ER) | payer MEDICAID ==
[~2020-12-16] VITALS: Ht 167.6 cm; Wt 113.4 kg
[2020-12-16] MEDS ORDERED: IBUPROFEN 800 MG TAB PO ONE (16:30)
[2020-12-16] MEDS ORDERED: ONDANSETRON 4MG INJ IVP ONE (16:30)
[2020-12-16 16:59] LABS: BASOPHILS % (AUTO) 1.1 % (0.0-5.0); EOSINOPHILS % (AUTO) 5.4 % (0.0-8.0); HEMATOCRIT 31.5 % (36-48); LYMPHOCYTES % (AUTO) 30.8 % (21.0-51.0); MEAN CORPUSCULAR HEMOGLOBIN 29.1 pg (27.0-33.0); MEAN CORPUSCULAR HGB CONC 31.1 g/dL (32.0-36.0); MEAN CORPUSCULAR VOLUME 93.5 fL (79-99); NEUTROPHILS % (AUTO) 48.3 % (40.0-77.0); PLATELET COUNT (AUTO) 63 K/uL (130-400); RED BLOOD CELL COUNT(AUTO) 3.37 MIL/uL (4.00-5.50); RED CELL DISTRIBUTION WIDTH 18.2 % (11.0-15.5); WHITE BLOOD COUNT (AUTO) 2.8 K/uL (4.8-10.8)
[2020-12-16] MEDS ORDERED: OMEP20CA12 PO (17:02)
[2020-12-16 17:11] LABS: APPEARANCE,URINE Clear (CLEAR); BILIRUBIN,URINE Small (NEGATIVE); COLOR,URINE Dark Yellow (YELLOW); GLUCOSE, URINE (UA) Negative (NEGATIVE); KETONES,URINE Trace mg/dL (NEGATIVE); LEUKOCYTE ESTERASE ,URINE Small (NEGATIVE); NITRATE,URINE Negative (NEGATIVE); OCCULT BLOOD,URINE Negative (NEGATIVE); PH,URINE 5.5 (5.0-8.0); PROTEIN,URINE Negative (NEGATIVE)
[2020-12-16 17:12] LABS: CREATININE 0.7 mg/dL (0.5-1.5); POTASSIUM 3.8 mmol/L (3.5-5.1)
[2020-12-16 17:22] LABS: ALBUMIN 2.5 g/dL (3.5-5.0); BILIRUBIN,TOTAL 2.2 mg/dL (0.2-1.0); TOTAL PROTEIN, SERUM 6.4 g/dL (6.0-8.3)
[2020-12-16 17:32] LABS: BACTERIA,URINE Rare /HPF (None Seen); RBC,URINE 0-1 /HPF (0-1)
[2020-12-16 17:33] LABS: CALCIUM PHOSPHATE CRYSTALS,UR Few /LPF (None Seen); MUCUS,URINE Few LPF (None Seen); SQUAMOUS EPITHELIAL CELL,UR Few /HPF (0-2)
[2020-12-16 17:45] VITALS: BP 126/61
[2020-12-16 18:11] LABS: BAND NEUTROPHILS % (MANUAL) 2 % (0-2); EOSINOPHILS % (MANUAL) 8 % (1-6); LYMPHOCYTES % (MANUAL) 24 % (22-44); MAN.DIFF COMMENT-IMPRESSION MANUAL DIFFERENTIAL; MONOCYTES % (MANUAL) 13 % (2-9); REACTIVE LYMPHOCYTES 1 % (0-0); SEGMENTED NEUTROPHILS % 52 % (40-70)
[2020-12-16 18:13] LABS: PLATELET MORPHOLOGY COMMENT DECREASED
== END 2020-12-16 18:20 | disposition home or self-care (01) ==
LOC: EDH 15:47
DX: K74.60 Unspecified cirrhosis of liver (principal); D69.6 Thrombocytopenia, unspecified; D72.819 Decreased white blood cell count, unspecified; E03.9 Hypothyroidism, unspecified; M32.9 Systemic lupus erythematosus, unspecified; M79.7 Fibromyalgia; Z79.899 Other long term (current) drug therapy; Z85.3 Personal history of malignant neoplasm of breast; Z90.13 Acquired absence of bilateral breasts and nipples; Z79.1 Long term (current) use of non-steroidal anti-inflammatories (NSAID)
CPT/HCPCS: 36415; 71045; 80053; 81001; 82140; 84484; 85025; 93005; 96374; J2405

== ENCOUNTER 2021-02-02 19:33 | Emergency (ER) | payer MEDICAID ==
[~2021-02-02] VITALS: Ht 167.6 cm; Wt 117.9 kg
[~2021-02-02 19:33] MED LIST changes: +OMEP20CA12 PO
[2021-02-02 19:40] VITALS: BP 120/63
[2021-02-02] MEDS ORDERED: 0.9%NACL 1000ML 1,000 ML IV ONE (20:00)
[2021-02-02 20:21] LABS: APPEARANCE,URINE Clear (CLEAR); BILIRUBIN,URINE Negative (NEGATIVE); COLOR,URINE Yellow (YELLOW); GLUCOSE, URINE (UA) Negative (NEGATIVE); KETONES,URINE Negative (NEGATIVE); LEUKOCYTE ESTERASE ,URINE Negative (NEGATIVE); NITRATE,URINE Negative (NEGATIVE); OCCULT BLOOD,URINE Negative (NEGATIVE); PROTEIN,URINE Negative (NEGATIVE)
[2021-02-02 20:25] LABS: BASOPHILS % (AUTO) 0.7 % (0.0-5.0); CARBON DIOXIDE 21 mmol/L (21-32); CHLORIDE 112 mmol/L (101-111); CREATININE 0.9 mg/dL (0.5-1.5); GLOMERULAR FILTR. RATE CALC 69 mL/min (>60); GLUCOSE,RANDOM 103 mg/dL (70-105); HEMATOCRIT 33.5 % (36-48); LYMPHOCYTES % (AUTO) 21.3 % (21.0-51.0); MEAN CORPUSCULAR HEMOGLOBIN 29.7 pg (27.0-33.0); MEAN CORPUSCULAR HGB CONC 31.9 g/dL (32.0-36.0); MEAN CORPUSCULAR VOLUME 93.1 fL (79-99); MONOCYTES % (AUTO) 10.1 % (3.0-13.0); NEUTROPHILS % (AUTO) 65.9 % (40.0-77.0); PLATELET COUNT (AUTO) 58 K/uL (130-400); POTASSIUM 3.8 mmol/L (3.5-5.1); RED CELL DISTRIBUTION WIDTH 19.5 % (11.0-15.5); SODIUM SERUM 146 mmol/L (136-145); UREA NITROGEN, BLOOD 8 mg/dL (7-18)
[2021-02-02 20:28] LABS: AMPHET/METH SCREEN,URINE NEGATIVE (NEGATIVE); BARBITURATE SCREEN, URINE NEGATIVE (NEGATIVE); BENZODIAZEPINES SCREEN,URINE NEGATIVE (NEGATIVE); CANNABINOID SCREEN,URINE NEGATIVE (NEGATIVE); COCAINE SCREEN,URINE NEGATIVE (NEGATIVE); OPIATE SCREEN,URINE NEGATIVE (NEGATIVE); PHENCYCLIDINE SCREEN,URINE NEGATIVE (NEGATIVE)
[2021-02-02 20:29] LABS: ALANINE AMINOTRANSFERASE 32 U/L (12-78); ALCOHOL, BLOOD < 3 mg/dL (0-10); ASPARTATE AMINOTRANSFERASE 55 U/L (10-37); BILIRUBIN,TOTAL 2.7 mg/dL (0.2-1.0); TOTAL PROTEIN, SERUM 7.4 g/dL (6.0-8.3)
[2021-02-02 20:32] LABS: ACETAMINOPHEN < 1 mcg/mL (10-30); SALICYLATE < 2.8 mg/dL (2.8-20.0)
[2021-02-02 20:55] LABS: BAND NEUTROPHILS % (MANUAL) 1 % (0-2); BASOPHILS % (MANUAL) 2 % (0-2); EOSINOPHILS % (MANUAL) 2 % (1-6); LYMPHOCYTES % (MANUAL) 25 % (22-44); MAN.DIFF COMMENT-IMPRESSION MANUAL DIFFERENTIAL; MONOCYTES % (MANUAL) 4 % (2-9); SEGMENTED NEUTROPHILS % 66 % (40-70)
[2021-02-02] MEDS ORDERED: LACTULOSE 20 GM/30 ML UDCUP PR SCH (21:00)
[2021-02-02 21:34] VITALS: BP 126/69
[2021-02-02 22:24] VITALS: BP 134/72
== END 2021-02-02 22:23 | disposition home or self-care (01) ==
LOC: EDH 19:33
DX: F41.9 Anxiety disorder, unspecified (principal); K74.60 Unspecified cirrhosis of liver; R41.82 Altered mental status, unspecified; E03.9 Hypothyroidism, unspecified; M32.9 Systemic lupus erythematosus, unspecified; M79.7 Fibromyalgia; Z79.899 Other long term (current) drug therapy; Z85.3 Personal history of malignant neoplasm of breast
CPT/HCPCS: 36415; 80053; 80305; 81003; 82140; 84703; 85025; 96360; 99283; G0481; J7030

== ENCOUNTER 2021-02-09 22:19 | Inpatient (IN) | payer MEDICAID ==
[~2021-02-09] VITALS: Ht 167.6 cm; Wt 120.7 kg
[2021-02-09] MEDS ORDERED: ACETAMINOPHEN 325 MG TAB PO ONE (23:30)
[2021-02-09 23:58] LABS: BASOPHILS % (AUTO) 0.9 % (0.0-5.0); EOSINOPHILS % (AUTO) 5.2 % (0.0-8.0); HEMATOCRIT 32.9 % (36-48); LYMPHOCYTES % (AUTO) 30.2 % (21.0-51.0); MEAN CORPUSCULAR HEMOGLOBIN 29.5 pg (27.0-33.0); MEAN CORPUSCULAR HGB CONC 31.6 g/dL (32.0-36.0); MEAN CORPUSCULAR VOLUME 93.5 fL (79-99); MONOCYTES % (AUTO) 13.6 % (3.0-13.0); NEUTROPHILS % (AUTO) 50.1 % (40.0-77.0); PLATELET COUNT (AUTO) 68 K/uL (130-400); RED BLOOD CELL COUNT(AUTO) 3.52 MIL/uL (4.00-5.50); RED CELL DISTRIBUTION WIDTH 19.4 % (11.0-15.5); WHITE BLOOD COUNT (AUTO) 3.2 K/uL (4.8-10.8)
[2021-02-10 00:09] LABS: CREATININE 0.7 mg/dL (0.5-1.5); POTASSIUM 3.7 mmol/L (3.5-5.1)
[2021-02-10 00:10] LABS: INR 1.21 (0.85-1.15)
[2021-02-10 00:11] LABS: PARTIAL THROMBOPLASTIN TIME 29.4 SEC (26.3-35.5)
[2021-02-10 00:13] LABS: ALBUMIN 2.9 g/dL (3.5-5.0); MAGNESIUM 2.2 mg/dL (1.80-2.40); TOTAL PROTEIN, SERUM 7.1 g/dL (6.0-8.3)
[2021-02-10 01:03] LABS: APPEARANCE,URINE Clear (CLEAR); BILIRUBIN,URINE Negative (NEGATIVE); COLOR,URINE Yellow (YELLOW); GLUCOSE, URINE (UA) Negative (NEGATIVE); KETONES,URINE Negative (NEGATIVE); LEUKOCYTE ESTERASE ,URINE Trace (NEGATIVE); NITRATE,URINE Negative (NEGATIVE); OCCULT BLOOD,URINE Negative (NEGATIVE); PH,URINE 5.5 (5.0-8.0); PROTEIN,URINE Negative (NEGATIVE)
[2021-02-10 01:11] LABS: BACTERIA,URINE None Seen /HPF (None Seen); RBC,URINE None Seen /HPF (0-1); SQUAMOUS EPITHELIAL CELL,UR Few /HPF (0-2); WBC,URINE 0-1 /HPF (0-1)
[2021-02-10] MEDS ORDERED: LACTULOSE 20 GM/30 ML UDCUP PO SCH (01:30)
[2021-02-10] MEDS ORDERED: NITROGLYCERIN 0.4 MG SL TAB SL PRN (01:30)
[2021-02-10] MEDS ORDERED: ZOLPIDEM TARTRATE 5 MG TAB PO PRN (01:30)
[2021-02-10] MEDS ORDERED: ONDANSETRON 4MG INJ IVP PRN (02:00)
[2021-02-10] MEDS ORDERED: MORPHINE 2 MG SYG IVP PRN (02:00)
[2021-02-10] MEDS: LEVOTHYROXINE 50 MCG TABLET PO SCH (06:27)
[2021-02-10] MEDS: PANTOPRAZOLE 40 MG/VIAL IVP SCH (08:49)
[2021-02-10] MEDS: ENOXAPARIN SODIUM 40 MG/0.4 ML SYRINGE SQ SCH (08:50)
[2021-02-10] MEDS: LACTULOSE 20 GM/30 ML UDCUP PO SCH ×2 (08:53→17:26)
[2021-02-10 13:35] VITALS: BP 117/59
[2021-02-10 16:17] VITALS: BP 118/60
[2021-02-10 19:45] VITALS: BP 120/64
[2021-02-10 23:28] VITALS: BP 126/68
[2021-02-11] MEDS: LACTULOSE 20 GM/30 ML UDCUP PO SCH ×5 (00:08→23:42)
[2021-02-11 03:39] VITALS: BP 113/65
[2021-02-11] MEDS: LEVOTHYROXINE 50 MCG TABLET PO SCH (05:31)
[2021-02-11 08:00] VITALS: BP 113/59
[2021-02-11] MEDS: ENOXAPARIN SODIUM 40 MG/0.4 ML SYRINGE SQ SCH (09:00)
[2021-02-11 09:35] LABS: HEMATOCRIT 29.4 % (36-48); MEAN CORPUSCULAR HEMOGLOBIN 29.3 pg (27.0-33.0); MEAN CORPUSCULAR HGB CONC 31.3 g/dL (32.0-36.0); MEAN CORPUSCULAR VOLUME 93.6 fL (79-99); PLATELET COUNT (AUTO) 52 K/uL (130-400); RED BLOOD CELL COUNT(AUTO) 3.14 MIL/uL (4.00-5.50)
[2021-02-11] MEDS: PANTOPRAZOLE 40 MG/VIAL IVP SCH (09:40)
[2021-02-11 09:59] LABS: ALBUMIN 2.3 g/dL (3.5-5.0); BILIRUBIN,TOTAL 2.3 mg/dL (0.2-1.0); CREATININE 0.8 mg/dL (0.5-1.5); TOTAL PROTEIN, SERUM 5.8 g/dL (6.0-8.3)
[2021-02-11 10:03] LABS: POTASSIUM 3.1 mmol/L (3.5-5.1)
[2021-02-11 12:00] VITALS: BP 118/56
[2021-02-11] MEDS ORDERED: LIDOCAINE HCL-MPF 1% 2ML VIAL IV PRN (14:00)
[2021-02-11] MEDS ORDERED: POTASSIUM CHLORIDE 20MEQ/100ML 100 ML IV PRN (14:00)
[2021-02-11] MEDS ORDERED: POTASSIUM CHLORIDE 10% ELIXIR 20 MEQ/15 ML UDCUP PO PRN (14:00)
[2021-02-11] MEDS: KCL 20 MEQ ERTAB PO PRN ×3 (14:43→18:46)
[2021-02-11 16:00] VITALS: BP 117/56
[2021-02-11] MEDS ORDERED: ZINC220T4 PO (17:37)
[2021-02-11 19:54] VITALS: BP 131/76
[2021-02-11 23:33] VITALS: BP 125/70
[2021-02-12 03:50] VITALS: BP 108/53
[2021-02-12 04:42] LABS: HEMATOCRIT 28.8 % (36-48); MEAN CORPUSCULAR HEMOGLOBIN 29.4 pg (27.0-33.0); MEAN CORPUSCULAR HGB CONC 31.9 g/dL (32.0-36.0); PLATELET COUNT (AUTO) 53 K/uL (130-400); RED BLOOD CELL COUNT(AUTO) 3.13 MIL/uL (4.00-5.50); RED CELL DISTRIBUTION WIDTH 18.8 % (11.0-15.5); WHITE BLOOD COUNT (AUTO) 2.5 K/uL (4.8-10.8)
[2021-02-12 04:55] LABS: CREATININE 0.7 mg/dL (0.5-1.5); POTASSIUM 3.8 mmol/L (3.5-5.1)
[2021-02-12] MEDS: LEVOTHYROXINE 50 MCG TABLET PO SCH (05:54)
[2021-02-12] MEDS: LACTULOSE 20 GM/30 ML UDCUP PO SCH ×2 (05:54→11:47)
[2021-02-12 06:19] LABS: BAND NEUTROPHILS % (MANUAL) 1 % (0-2); BASOPHILS % (MANUAL) 1 % (0-2); EOSINOPHILS % (MANUAL) 4 % (1-6); LYMPHOCYTES % (MANUAL) 24 % (22-44); MONOCYTES % (MANUAL) 10 % (2-9); REACTIVE LYMPHOCYTES 3 % (0-0); SEGMENTED NEUTROPHILS % 57 % (40-70)
[2021-02-12 06:20] LABS: MAN.DIFF COMMENT-IMPRESSION MANUAL DIFFERENTIAL; PLATELET MORPHOLOGY COMMENT DECREASED
[2021-02-12 08:00] VITALS: BP 113/69
[2021-02-12] MEDS: ENOXAPARIN SODIUM 40 MG/0.4 ML SYRINGE SQ SCH (09:00)
[2021-02-12] MEDS: PANTOPRAZOLE 40 MG/VIAL IVP SCH (10:10)
[2021-02-12 11:31] VITALS: BP 121/64
[2021-02-12] MEDS ORDERED: LACT PO (14:13)
[2021-02-12 16:00] VITALS: BP 129/70
== END 2021-02-12 17:29 | disposition home or self-care (01) | DRG 279 ==
LOC: EDH 22:19 → EDHIP 22:20 → OBSVTOIN 22:20 → 3BH 02-10 13:44
PROVIDERS: ADMIT Internal Medicine; ATTEND Internal Medicine
DX: K72.90 Hepatic failure, unspecified without coma (principal); Z68.41 Body mass index [BMI] 40.0-44.9, adult; E03.9 Hypothyroidism, unspecified; K74.60 Unspecified cirrhosis of liver; M79.7 Fibromyalgia; E66.9 Obesity, unspecified; S00.83XA Contusion of other part of head, initial encounter; W22.09XA Striking against other stationary object, initial encounter; Y93.89 Activity, other specified; Y92.89 Other specified places as the place of occurrence of the external cause; Y99.8 Other external cause status; Z85.3 Personal history of malignant neoplasm of breast; Z90.12 Acquired absence of left breast and nipple; Z90.710 Acquired absence of both cervix and uterus; Z90.49 Acquired absence of other specified parts of digestive tract; Z98.84 Bariatric surgery status; Z83.3 Family history of diabetes mellitus; Z81.1 Family history of alcohol abuse and dependence; Z82.61 Family history of arthritis; Z84.89 Family history of other specified conditions; Z82.49 Family history of ischemic heart disease and other diseases of the circulatory system
CPT/HCPCS: 36415; 70450; 71046; 72125; 74018; 80048; 80053; 81001; 82140; 82550; 83735; 84484; 85025; 85027; 85610; 85730; C9113; G0378

== ENCOUNTER 2021-02-23 14:44 | Observation (INO) | payer MEDICAID ==
[~2021-02-23] VITALS: Ht 167.6 cm; Wt 115.3 kg
[~2021-02-23 14:44] MED LIST changes: -OMEP20CA12 PO; -RIFA550T PO; +ZINC220T4 PO
[2021-02-23] MEDS ORDERED: ONDANSETRON ODT 4MG TAB SL STA (15:13)
[2021-02-23] MEDS ORDERED: MECLIZINE HCL 25 MG TABLET PO ONE (15:30)
[2021-02-23 15:33] LABS: APPEARANCE,URINE Clear (CLEAR); BILIRUBIN,URINE Negative (NEGATIVE); COLOR,URINE Yellow (YELLOW); GLUCOSE, URINE (UA) Negative (NEGATIVE); KETONES,URINE Negative (NEGATIVE); LEUKOCYTE ESTERASE ,URINE Negative (NEGATIVE); NITRATE,URINE Negative (NEGATIVE); OCCULT BLOOD,URINE Negative (NEGATIVE); PH,URINE 6.5 (5.0-8.0); PROTEIN,URINE Negative (NEGATIVE)
[2021-02-23] MEDS ORDERED: MECLIZINE HCL 25 MG TABLET ONE (15:38)
[2021-02-23] MEDS ORDERED: ONDANSETRON ODT 4MG TAB ONE (15:38)
[2021-02-23 15:58] LABS: HEMATOCRIT 33.5 % (36-48); MEAN CORPUSCULAR HEMOGLOBIN 29.2 pg (27.0-33.0); MEAN CORPUSCULAR HGB CONC 31.3 g/dL (32.0-36.0); MEAN CORPUSCULAR VOLUME 93.1 fL (79-99); PLATELET COUNT (AUTO) 62 K/uL (130-400); RED CELL DISTRIBUTION WIDTH 19.2 % (11.0-15.5)
[2021-02-23] MEDS ORDERED: LACTULOSE 20 GM/30 ML UDCUP PO STA (16:22)
[2021-02-23 16:31] LABS: BAND NEUTROPHILS % (MANUAL) 2 % (0-2); BASOPHILS % (MANUAL) 1 % (0-2); EOSINOPHILS % (MANUAL) 3 % (1-6); LYMPHOCYTES % (MANUAL) 21 % (22-44); MONOCYTES % (MANUAL) 8 % (2-9); SEGMENTED NEUTROPHILS % 65 % (40-70)
[2021-02-23 16:32] LABS: MAN.DIFF COMMENT-IMPRESSION MANUAL DIFFERENTIAL
[2021-02-23 16:35] LABS: CREATININE 0.9 mg/dL (0.5-1.5); POTASSIUM 4.1 mmol/L (3.5-5.1)
[2021-02-23 16:40] LABS: ALBUMIN 2.8 g/dL (3.5-5.0); BILIRUBIN,TOTAL 2.1 mg/dL (0.2-1.0)
[2021-02-23] MEDS ORDERED: NITROGLYCERIN 0.4 MG SL TAB SL PRN (18:30)
[2021-02-23] MEDS ORDERED: IBUPROFEN 200 MG TAB PO PRN (18:30)
[2021-02-23] MEDS: LACTULOSE 20 GM/30 ML UDCUP PO SCH (19:00)
[2021-02-23 19:36] LABS: INR 1.24 (0.85-1.15); PROTHROMBIN TIME 13.3 SEC (9.6-11.6)
[2021-02-23 19:37] LABS: PARTIAL THROMBOPLASTIN TIME 30.3 SEC (26.3-35.5)
[2021-02-23] MEDS ORDERED: FLUO20CA36 PO (20:40)
[2021-02-23] MEDS ORDERED: ZINC50TA64 PO (20:43)
[2021-02-23] MEDS ORDERED: LORA-997 PO (20:43)
[2021-02-23] MEDS ORDERED: FOLI-103 PO (20:43)
[2021-02-23] MEDS ORDERED: MECO10005 PO (20:43)
[2021-02-23] MEDS ORDERED: LEVO100C4 PO (20:43)
[2021-02-23] MEDS ORDERED: SPIR25TA PO (20:43)
[2021-02-23] MEDS: FAMOTIDINE 20MG TAB PO SCH (20:44)
[2021-02-23] MEDS ORDERED: METOCLOPRAMIDE 10 MG/2 ML VIAL IVP PRN (21:00)
[2021-02-23 23:30] VITALS: BP 133/60
[2021-02-24] VITALS (7 sets, daily range): BP systolic 106–133; BP diastolic 48–60
[2021-02-24] MEDS: LACTULOSE 20 GM/30 ML UDCUP PO SCH ×4 (01:36→19:29)
[2021-02-24 05:13] LABS: BASOPHILS % (AUTO) 1.2 % (0.0-5.0); EOSINOPHILS % (AUTO) 6.6 % (0.0-8.0); HEMATOCRIT 30.1 % (36-48); MEAN CORPUSCULAR HEMOGLOBIN 29.1 pg (27.0-33.0); MEAN CORPUSCULAR HGB CONC 30.9 g/dL (32.0-36.0); MEAN CORPUSCULAR VOLUME 94.1 fL (79-99); MONOCYTES % (AUTO) 12.4 % (3.0-13.0); NEUTROPHILS % (AUTO) 45.8 % (40.0-77.0); PLATELET COUNT (AUTO) 49 K/uL (130-400); RED CELL DISTRIBUTION WIDTH 19.3 % (11.0-15.5); WHITE BLOOD COUNT (AUTO) 2.6 K/uL (4.8-10.8)
[2021-02-24 05:44] LABS: ALBUMIN 2.4 g/dL (3.5-5.0); BILIRUBIN,TOTAL 2.3 mg/dL (0.2-1.0); CREATININE 0.8 mg/dL (0.5-1.5); POTASSIUM 3.6 mmol/L (3.5-5.1)
[2021-02-24] MEDS: LEVOTHYROXINE 100 MCG TABLET PO SCH (05:45)
[2021-02-24 05:48] LABS: BASOPHILS % (MANUAL) 1 % (0-2); EOSINOPHILS % (MANUAL) 9 % (1-6); LYMPHOCYTES % (MANUAL) 32 % (22-44); MAN.DIFF COMMENT-IMPRESSION MANUAL DIFFERENTIAL; MONOCYTES % (MANUAL) 6 % (2-9); REACTIVE LYMPHOCYTES 3 % (0-0); SEGMENTED NEUTROPHILS % 49 % (40-70)
[2021-02-24] MEDS: IBUPROFEN 200 MG TAB PO PRN ×2 (06:33→14:14)
[2021-02-24] MEDS: SPIRONOLACTONE 25 MG TAB PO SCH (08:35)
[2021-02-24] MEDS: FLUOXETINE HCL 20 MG CAPSULE PO SCH (08:35)
[2021-02-24] MEDS: FAMOTIDINE 20MG TAB PO SCH ×2 (08:35→19:29)
[2021-02-24] MEDS: LORATADINE 10 MG TABLET PO SCH (08:35)
[2021-02-24] MEDS: FOLIC ACID PO SCH (08:36)
[2021-02-24] MEDS: ZINC AMINO ACID CHELATE PO SCH (08:36)
[2021-02-24] MEDS: MECOBALAMIN 1000 MCG PO SCH (08:36)
[2021-02-24] MEDS: MV FE OTHER MIN PO SCH (08:36)
[2021-02-25] MEDS: LACTULOSE 20 GM/30 ML UDCUP PO SCH ×2 (02:02→05:47)
[2021-02-25 03:50] VITALS: BP 106/48
[2021-02-25 04:36] LABS: BASOPHILS % (AUTO) 1.1 % (0.0-5.0); EOSINOPHILS % (AUTO) 6.5 % (0.0-8.0); HEMATOCRIT 29.6 % (36-48); LYMPHOCYTES % (AUTO) 33.3 % (21.0-51.0); MEAN CORPUSCULAR HEMOGLOBIN 29.7 pg (27.0-33.0); MEAN CORPUSCULAR HGB CONC 31.8 g/dL (32.0-36.0); MEAN CORPUSCULAR VOLUME 93.4 fL (79-99); NEUTROPHILS % (AUTO) 45.7 % (40.0-77.0); PLATELET COUNT (AUTO) 55 K/uL (130-400); RED BLOOD CELL COUNT(AUTO) 3.17 MIL/uL (4.00-5.50); RED CELL DISTRIBUTION WIDTH 19.1 % (11.0-15.5); WHITE BLOOD COUNT (AUTO) 2.6 K/uL (4.8-10.8)
[2021-02-25 04:58] LABS: ALBUMIN 2.4 g/dL (3.5-5.0); BILIRUBIN,TOTAL 2.6 mg/dL (0.2-1.0); CREATININE 0.8 mg/dL (0.5-1.5); POTASSIUM 3.5 mmol/L (3.5-5.1)
[2021-02-25] MEDS: LEVOTHYROXINE 100 MCG TABLET PO SCH (05:47)
[2021-02-25 07:30] VITALS: BP 125/54
[2021-02-25] MEDS: FOLIC ACID PO SCH (09:00)
[2021-02-25] MEDS: MECOBALAMIN 1000 MCG PO SCH (09:00)
[2021-02-25] MEDS: ZINC AMINO ACID CHELATE PO SCH (09:00)
[2021-02-25] MEDS: MV FE OTHER MIN PO SCH (09:00)
[2021-02-25] MEDS: LORATADINE 10 MG TABLET PO SCH (09:15)
[2021-02-25] MEDS: FLUOXETINE HCL 20 MG CAPSULE PO SCH (09:15)
[2021-02-25] MEDS: FAMOTIDINE 20MG TAB PO SCH (09:15)
[2021-02-25] MEDS: SPIRONOLACTONE 25 MG TAB PO SCH (09:16)
[2021-02-25 11:25] VITALS: BP 107/46
[2021-02-25] MEDS ORDERED: LACTULOSE 20 GM/30 ML UDCUP PO SCH (13:00)
== END 2021-02-25 16:45 | disposition home or self-care (01) ==
LOC: EDH 14:44 → INTOOBSV 14:45 → EDHIP 14:45 → 3DH 02-24 00:52
PROVIDERS: ADMIT Hospitalist; ATTEND Hospitalist
DX: K72.90 Hepatic failure, unspecified without coma (principal); Z20.822 Contact with and (suspected) exposure to COVID-19; K74.60 Unspecified cirrhosis of liver; E72.20 Disorder of urea cycle metabolism, unspecified; D61.818 Other pancytopenia; E66.01 Morbid (severe) obesity due to excess calories; I10 Essential (primary) hypertension; M79.7 Fibromyalgia; F32.A Depression, unspecified; I25.10 Atherosclerotic heart disease of native coronary artery without angina pectoris; E03.9 Hypothyroidism, unspecified; D69.6 Thrombocytopenia, unspecified; D72.819 Decreased white blood cell count, unspecified; Z90.710 Acquired absence of both cervix and uterus; Z68.41 Body mass index [BMI] 40.0-44.9, adult; Z90.12 Acquired absence of left breast and nipple; Z79.899 Other long term (current) drug therapy; Z85.3 Personal history of malignant neoplasm of breast; Z98.84 Bariatric surgery status
CPT/HCPCS: 36415 ×3; 80053 ×3; 81003; 82140 ×3; 82150; 83690; 84443; 84484 ×2; 85025 ×3; 85610; 85730; 87635; 93005; 99284; C9803; G0378 ×51

== ENCOUNTER 2021-05-10 19:51 | Emergency (ER) | payer MEDICAID ==
[~2021-05-10] VITALS: Ht 167.6 cm; Wt 117.9 kg
[~2021-05-10 19:51] MED LIST changes: +FLUO20CA36 PO; +FOLI-103 PO; +LEVO100C4 PO; +LORA-997 PO; +MECO10005 PO; +ZINC50TA64 PO
[2021-05-10 19:53] VITALS: BP 152/70
== END 2021-05-10 22:33 | disposition left against medical advice (07) ==
LOC: EDH 19:51
DX: R10.9 Unspecified abdominal pain (principal); R41.82 Altered mental status, unspecified; Z53.21 Procedure and treatment not carried out due to patient leaving prior to being seen by health care provider

== ENCOUNTER 2021-09-04 15:53 | Observation (INO) | payer MEDICAID ==
[~2021-09-04] VITALS: Ht 165.1 cm; Wt 118.6 kg
[~2021-09-04 15:53] MED LIST changes: +ASCO500T19 PO; +CHOL200059 PO; -FLUO20CA30 PO; -FOLI-103 PO; -LACT PO; +LACT10SO9 PO; -LEVO100C4 PO; +LEVO500T90 PO; -LORA-997 PO; -LORA10TA7 PO; -MECO10005 PO; -MULT-1203 PO; +RIFA550T PO; -ZINC50TA64 PO
[2021-09-04 16:25] LABS: EOSINOPHILS % (AUTO) 3.2 % (0.0-8.0); HEMATOCRIT 31.4 % (36-48); LYMPHOCYTES % (AUTO) 26.9 % (21.0-51.0); MEAN CORPUSCULAR HEMOGLOBIN 28.9 pg (27.0-33.0); MEAN CORPUSCULAR HGB CONC 31.2 g/dL (32.0-36.0); MEAN CORPUSCULAR VOLUME 92.6 fL (79-99); MONOCYTES % (AUTO) 12.8 % (3.0-13.0); NEUTROPHILS % (AUTO) 56.1 % (40.0-77.0); PLATELET COUNT (AUTO) 71 K/uL (130-400); RED BLOOD CELL COUNT(AUTO) 3.39 MIL/uL (4.00-5.50); RED CELL DISTRIBUTION WIDTH 18.6 % (11.0-15.5); WHITE BLOOD COUNT (AUTO) 3.1 K/uL (4.8-10.8)
[2021-09-04 16:33] LABS: CREATININE 0.7 mg/dL (0.5-1.5); POTASSIUM 3.8 mmol/L (3.5-5.1)
[2021-09-04 16:43] LABS: ALBUMIN 2.7 g/dL (3.5-5.0); BILIRUBIN,TOTAL 2.5 mg/dL (0.2-1.0); TOTAL PROTEIN, SERUM 6.6 g/dL (6.0-8.3)
[2021-09-04] MEDS ORDERED: LACTULOSE 20 GM/30 ML UDCUP PO ONE (18:00)
[2021-09-04 18:12] LABS: INR 1.21 (0.85-1.15)
[2021-09-04 18:14] LABS: PARTIAL THROMBOPLASTIN TIME 29.2 SEC (26.3-35.5)
[2021-09-04] MEDS ORDERED: CEFTRIAXONE 1G VIAL IV SCH (21:00)
[2021-09-04] MEDS ORDERED: ONDANSETRON 4MG INJ IV PRN (21:00)
[2021-09-04 21:47] LABS: APPEARANCE,URINE Clear (CLEAR); BILIRUBIN,URINE Negative (NEGATIVE); COLOR,URINE Dark Yellow (YELLOW); GLUCOSE, URINE (UA) Negative (NEGATIVE); KETONES,URINE Trace mg/dL (NEGATIVE); LEUKOCYTE ESTERASE ,URINE Trace (NEGATIVE); NITRATE,URINE Negative (NEGATIVE); OCCULT BLOOD,URINE Negative (NEGATIVE); PH,URINE 5.5 (5.0-8.0); PROTEIN,URINE Negative (NEGATIVE)
[2021-09-04] MEDS: RIFAXIMIN 550 MG TABLET PO SCH (21:49)
[2021-09-04] MEDS: CYANOCOBALAMIN (VITAMIN B-12) 1,000 MCG TABLET PO SCH (21:49)
[2021-09-04] MEDS: FAMOTIDINE 20MG VIAL IV SCH (21:49)
[2021-09-04] MEDS: LACTULOSE 20 GM/30 ML UDCUP PR SCH (21:49)
[2021-09-04 22:35] LABS: BACTERIA,URINE Few /HPF (None Seen); RBC,URINE None Seen /HPF (0-1); SQUAMOUS EPITHELIAL CELL,UR Few /HPF (0-2); WBC,URINE 0-1 /HPF (0-1)
[2021-09-04 22:50] VITALS: BP 123/47
[2021-09-04] MEDS ORDERED: LORA10TA7 PO (23:38)
[2021-09-05 04:00] VITALS: BP 110/47
[2021-09-05 07:50] VITALS: BP 100/50
[2021-09-05 07:56] LABS: HEMATOCRIT 29.2 % (36-48); MEAN CORPUSCULAR HEMOGLOBIN 29.3 pg (27.0-33.0); MEAN CORPUSCULAR HGB CONC 31.8 g/dL (32.0-36.0); MEAN CORPUSCULAR VOLUME 92.1 fL (79-99); PLATELET COUNT (AUTO) 56 K/uL (130-400); RED BLOOD CELL COUNT(AUTO) 3.17 MIL/uL (4.00-5.50); RED CELL DISTRIBUTION WIDTH 18.8 % (11.0-15.5); WHITE BLOOD COUNT (AUTO) 2.6 K/uL (4.8-10.8)
[2021-09-05 08:01] LABS: CREATININE 0.6 mg/dL (0.5-1.5); POTASSIUM 3.3 mmol/L (3.5-5.1)
[2021-09-05 08:58] LABS: EOSINOPHILS % (MANUAL) 2 % (1-6); LYMPHOCYTES % (MANUAL) 35 % (22-44); MONOCYTES % (MANUAL) 13 % (2-9); SEGMENTED NEUTROPHILS % 50 % (40-70)
[2021-09-05 08:59] LABS: MAN.DIFF COMMENT-IMPRESSION MANUAL DIFFERENTIAL
[2021-09-05 09:00] LABS: PLATELET MORPHOLOGY COMMENT MARKED DECREASE
[2021-09-05] MEDS ORDERED: SPIRONOLACTONE 25 MG TAB PO SCH (09:00)
[2021-09-05] MEDS ORDERED: ASCORBIC ACID 500 MG TAB PO SCH (09:00)
[2021-09-05] MEDS ORDERED: FLUOXETINE HCL 20 MG CAPSULE PO SCH (09:00)
[2021-09-05] MEDS: CYANOCOBALAMIN (VITAMIN B-12) 1,000 MCG TABLET PO SCH (10:52)
[2021-09-05] MEDS: LACTULOSE 20 GM/30 ML UDCUP PR SCH ×2 (10:52→14:56)
[2021-09-05] MEDS: FAMOTIDINE 20MG VIAL IV SCH (10:53)
[2021-09-05] MEDS: RIFAXIMIN 550 MG TABLET PO SCH (10:53)
[2021-09-05 11:30] VITALS: BP 114/55
== END 2021-09-05 15:00 | disposition home or self-care (01) ==
LOC: EDH 15:53 → EDHIP 15:54 → INTOOBSV 15:54 → 3BH 22:57
PROVIDERS: ADMIT Hospitalist; ATTEND Hospitalist
DX: K72.90 Hepatic failure, unspecified without coma (principal); D72.819 Decreased white blood cell count, unspecified; K74.60 Unspecified cirrhosis of liver; E66.01 Morbid (severe) obesity due to excess calories; D61.818 Other pancytopenia; F32.9 Major depressive disorder, single episode, unspecified; E77.8 Other disorders of glycoprotein metabolism; F41.8 Other specified anxiety disorders; M79.7 Fibromyalgia; I10 Essential (primary) hypertension; Z79.899 Other long term (current) drug therapy; Z98.84 Bariatric surgery status
CPT/HCPCS: 36415 ×2; 71045; 80048; 80053; 81001; 82140 ×2; 82270; 82550; 84484; 85025; 85027; 85610; 85730; 93005; 96374; 96375; 96376; 99285; G0378 ×2; J0696; S0028 ×2; J3490

== ENCOUNTER 2021-10-18 18:32 | Emergency (ER) | payer MEDICAID ==
[~2021-10-18] VITALS: Ht 167.6 cm; Wt 116.1 kg
[~2021-10-18 18:32] MED LIST changes: -LEVO500T90 PO; +LORA10TA7 PO
[2021-10-18 19:13] LABS: HEMATOCRIT 31.5 % (36-48); MEAN CORPUSCULAR HEMOGLOBIN 28.6 pg (27.0-33.0); MEAN CORPUSCULAR HGB CONC 32.1 g/dL (32.0-36.0); MEAN CORPUSCULAR VOLUME 89.2 fL (79-99); PLATELET COUNT (AUTO) 64 K/uL (130-400); RED BLOOD CELL COUNT(AUTO) 3.53 MIL/uL (4.00-5.50); RED CELL DISTRIBUTION WIDTH 18.9 % (11.0-15.5); WHITE BLOOD COUNT (AUTO) 3.2 K/uL (4.8-10.8)
[2021-10-18 19:38] LABS: INR 1.18 (0.85-1.15); PROTHROMBIN TIME 12.7 SEC (9.6-11.6)
[2021-10-18 19:39] LABS: PARTIAL THROMBOPLASTIN TIME 28.8 SEC (26.3-35.5)
[2021-10-18 20:22] VITALS: BP 129/68
[2021-10-18 20:34] LABS: APPEARANCE,URINE Clear (CLEAR); BILIRUBIN,URINE Negative (NEGATIVE); COLOR,URINE Dark Yellow (YELLOW); GLUCOSE, URINE (UA) Negative (NEGATIVE); KETONES,URINE Trace mg/dL (NEGATIVE); LEUKOCYTE ESTERASE ,URINE Negative (NEGATIVE); NITRATE,URINE Negative (NEGATIVE); OCCULT BLOOD,URINE Negative (NEGATIVE); PH,URINE 5.5 (5.0-8.0); PROTEIN,URINE Negative (NEGATIVE)
[2021-10-18 20:52] LABS: POTASSIUM 3.7 mmol/L (3.5-5.1)
[2021-10-18 22:18] LABS: ALBUMIN 2.7 g/dL (3.5-5.0); CREATININE 0.7 mg/dL (0.5-1.5); TOTAL PROTEIN, SERUM 6.7 g/dL (6.0-8.3)
== END 2021-10-18 22:48 | disposition home or self-care (01) ==
LOC: EDH 18:32
DX: K72.90 Hepatic failure, unspecified without coma (principal); K74.60 Unspecified cirrhosis of liver; M79.7 Fibromyalgia; E03.9 Hypothyroidism, unspecified; Z98.890 Other specified postprocedural states; Z90.49 Acquired absence of other specified parts of digestive tract; Z79.899 Other long term (current) drug therapy
CPT/HCPCS: 36415; 70450; 80053; 81003; 82140; 85027; 85610; 85730

== ENCOUNTER 2021-11-01 09:37 | Observation (INO) | payer MEDICAID ==
[~2021-11-01] VITALS: Ht 167.6 cm; Wt 115.3 kg
[2021-11-01 10:13] LABS: BASOPHILS % (AUTO) 0.8 % (0.0-5.0); EOSINOPHILS % (AUTO) 4.6 % (0.0-8.0); HEMATOCRIT 32.3 % (36-48); LYMPHOCYTES % (AUTO) 25.6 % (21.0-51.0); MEAN CORPUSCULAR HEMOGLOBIN 28.2 pg (27.0-33.0); MEAN CORPUSCULAR HGB CONC 31.6 g/dL (32.0-36.0); MEAN CORPUSCULAR VOLUME 89.2 fL (79-99); MONOCYTES % (AUTO) 10.9 % (3.0-13.0); NEUTROPHILS % (AUTO) 58.1 % (40.0-77.0); PLATELET COUNT (AUTO) 63 K/uL (130-400); RED BLOOD CELL COUNT(AUTO) 3.62 MIL/uL (4.00-5.50); RED CELL DISTRIBUTION WIDTH 19.1 % (11.0-15.5); WHITE BLOOD COUNT (AUTO) 2.4 K/uL (4.8-10.8)
[2021-11-01 10:21] LABS: CREATININE 0.7 mg/dL (0.5-1.5); POTASSIUM 3.9 mmol/L (3.5-5.1)
[2021-11-01 10:23] LABS: INR 1.14 (0.85-1.15); PROTHROMBIN TIME 12.3 SEC (9.6-11.6)
[2021-11-01 10:29] LABS: ALBUMIN 2.8 g/dL (3.5-5.0); BILIRUBIN,TOTAL 2.2 mg/dL (0.2-1.0); TOTAL PROTEIN, SERUM 6.9 g/dL (6.0-8.3)
[2021-11-01 10:50] LABS: APPEARANCE,URINE CLEAR (CLEAR); BILIRUBIN,URINE NEGATIVE (NEGATIVE); COLOR,URINE YELLOW (YELLOW); GLUCOSE, URINE (UA) NEGATIVE (NEGATIVE); KETONES,URINE NEGATIVE (NEGATIVE); LEUKOCYTE ESTERASE ,URINE TRACE (NEGATIVE); NITRATE,URINE NEGATIVE (NEGATIVE); OCCULT BLOOD,URINE NEGATIVE (NEGATIVE); PROTEIN,URINE NEGATIVE (NEGATIVE)
[2021-11-01 11:25] LABS: BACTERIA,URINE Rare /HPF (None Seen); RBC,URINE 0-1 /HPF (0-1); SQUAMOUS EPITHELIAL CELL,UR Rare /HPF (0-2); WBC,URINE 0-1 /HPF (0-1)
[2021-11-01] MEDS ORDERED: 0.9% NACL 500ML IV.SOLN 500 ML IV ONE (12:00)
[2021-11-01] MEDS ORDERED: LACTULOSE 20 GM/30 ML UDCUP PR SCH (12:00)
[2021-11-01 12:09] LABS: BASOPHILS % (MANUAL) 1 % (0-2); EOSINOPHILS % (MANUAL) 2 % (1-6); LYMPHOCYTES % (MANUAL) 22 % (22-44); MAN.DIFF COMMENT-IMPRESSION MANUAL DIFFERENTIAL; MONOCYTES % (MANUAL) 16 % (2-9); PLATELET MORPHOLOGY COMMENT DECREASED; SEGMENTED NEUTROPHILS % 59 % (40-70)
[2021-11-01] MEDS: THIAMINE HCL 100 MG/ML 2ML VIAL IVP SCH (13:01)
[2021-11-01] MEDS: PANTOPRAZOLE 40 MG/VIAL IVP SCH (13:01)
[2021-11-01] MEDS: CEFTRIAXONE 1G VIAL IVP SCH (13:01)
[2021-11-01] MEDS ORDERED: LEVO-172 PO (13:09)
[2021-11-01] MEDS ORDERED: OMEP20CA12 PO (13:09)
[2021-11-01] MEDS ORDERED: GINK30CA3 PO (13:09)
[2021-11-01] MEDS ORDERED: MULT-1203 PO (13:09)
[2021-11-01 13:15] LABS: CRP QUANTITATIVE < 2.00 mg/L (0.00-9.0)
[2021-11-01] MEDS: DEXTROSE 5%-WATER 1,000 ML IV SCH (13:20)
[2021-11-01] MEDS: RIFAXIMIN 550 MG TABLET PO SCH ×2 (14:13→23:55)
[2021-11-01] MEDS ORDERED: LACTULOSE 20 GM/30 ML UDCUP ONE (15:55)
[2021-11-01] MEDS: LACTULOSE 20 GM/30 ML UDCUP PO SCH ×2 (16:55→23:55)
[2021-11-01] MEDS ORDERED: ONDANSETRON 4MG INJ IVP PRN (17:00)
[2021-11-01 17:38] LABS: HEMATOCRIT 34.8 % (36-48)
[2021-11-01 17:48] LABS: CREATININE 0.9 mg/dL (0.5-1.5); POTASSIUM 3.5 mmol/L (3.5-5.1)
[2021-11-01] MEDS ORDERED: D3 PO (22:13)
[2021-11-01 22:17] LABS: CREATININE 0.7 mg/dL (0.5-1.5); POTASSIUM 3.1 mmol/L (3.5-5.1)
[2021-11-01 23:19] VITALS: BP 105/45
[2021-11-02 03:13] VITALS: BP 97/41
[2021-11-02] MEDS: DEXTROSE 5%-WATER 1,000 ML IV SCH (03:18)
[2021-11-02] MEDS: LACTULOSE 20 GM/30 ML UDCUP PO SCH ×2 (05:00→12:45)
[2021-11-02 07:14] LABS: EOSINOPHILS % (AUTO) 6.2 % (0.0-8.0); HEMATOCRIT 28.6 % (36-48); LYMPHOCYTES % (AUTO) 29.7 % (21.0-51.0); MEAN CORPUSCULAR HEMOGLOBIN 28.2 pg (27.0-33.0); MEAN CORPUSCULAR HGB CONC 31.1 g/dL (32.0-36.0); MEAN CORPUSCULAR VOLUME 90.5 fL (79-99); MONOCYTES % (AUTO) 16.3 % (3.0-13.0); NEUTROPHILS % (AUTO) 46.8 % (40.0-77.0); PLATELET COUNT (AUTO) 55 K/uL (130-400); RED BLOOD CELL COUNT(AUTO) 3.16 MIL/uL (4.00-5.50); RED CELL DISTRIBUTION WIDTH 19.1 % (11.0-15.5); WHITE BLOOD COUNT (AUTO) 2.1 K/uL (4.8-10.8)
[2021-11-02 08:00] VITALS: BP 100/64
[2021-11-02] MEDS ORDERED: KCL 20 MEQ ERTAB PO SCH ×2 (09:00→13:00)
[2021-11-02] MEDS: MAGNESIUM 2GM PREMIX 50ML 50 ML IV SCH ×2 (09:43→12:46)
[2021-11-02 09:55] LABS: ALBUMIN 2.6 g/dL (3.5-5.0); BILIRUBIN,TOTAL 2.2 mg/dL (0.2-1.0); CREATININE 0.9 mg/dL (0.5-1.5); MAGNESIUM 1.7 mg/dL (1.80-2.40); POTASSIUM 3.5 mmol/L (3.5-5.1); TOTAL PROTEIN, SERUM 6.5 g/dL (6.0-8.3)
[2021-11-02 12:12] VITALS: BP 111/53
[2021-11-02] MEDS: CEFTRIAXONE 1G VIAL IVP SCH (12:44)
[2021-11-02] MEDS: PANTOPRAZOLE 40 MG/VIAL IVP SCH (12:44)
[2021-11-02] MEDS: RIFAXIMIN 550 MG TABLET PO SCH (12:45)
[2021-11-02] MEDS: THIAMINE HCL 100 MG/ML 2ML VIAL IVP SCH (12:46)
== END 2021-11-02 13:15 | disposition home or self-care (01) ==
LOC: EDH 09:37 → EDHIP 09:38 → INTOOBSV 09:38 → 2AH 23:03
PROVIDERS: ADMIT Internal Medicine; ATTEND Internal Medicine
DX: K72.90 Hepatic failure, unspecified without coma (principal); Z20.822 Contact with and (suspected) exposure to COVID-19; K74.60 Unspecified cirrhosis of liver; E86.0 Dehydration; E86.1 Hypovolemia; E87.1 Hypo-osmolality and hyponatremia; E66.01 Morbid (severe) obesity due to excess calories; D61.818 Other pancytopenia; I10 Essential (primary) hypertension; I85.00 Esophageal varices without bleeding; F32.9 Major depressive disorder, single episode, unspecified; E03.9 Hypothyroidism, unspecified; M32.9 Systemic lupus erythematosus, unspecified; M79.7 Fibromyalgia; Z79.899 Other long term (current) drug therapy; Z98.890 Other specified postprocedural states; Z90.710 Acquired absence of both cervix and uterus; Z90.49 Acquired absence of other specified parts of digestive tract; Z85.3 Personal history of malignant neoplasm of breast; Z90.12 Acquired absence of left breast and nipple; Z98.84 Bariatric surgery status; Z68.41 Body mass index [BMI] 40.0-44.9, adult
CPT/HCPCS: 36415; 70450; 71045; 76700; 80053 ×2; 81001; 82140 ×3; 82948; 83735 ×2; 84145; 85014; 85018; 85025; 85610; 85651; 85730; 86140; 87635; 87804 ×2; 93005; 96361 ×4; 96365; 96375; 96376; 99285; C9803; G0378; J0696 ×2; J3411; J3475; J7070; S0164 ×2; 80048; C9113

== ENCOUNTER 2021-11-23 00:59 | Emergency (ER) | payer MEDICAID ==
[~2021-11-23] VITALS: Ht 167.6 cm; Wt 118.4 kg
[~2021-11-23 00:59] MED LIST changes: +D3 PO; +GINK30CA3 PO; +LEVO-172 PO; +MULT-1203 PO; +OMEP20CA12 PO
[2021-11-23 02:10] LABS: BASOPHILS % (AUTO) 1.3 % (0.0-5.0); EOSINOPHILS % (AUTO) 5.7 % (0.0-8.0); HEMATOCRIT 31.6 % (36-48); LYMPHOCYTES % (AUTO) 25.7 % (21.0-51.0); MEAN CORPUSCULAR HGB CONC 31.6 g/dL (32.0-36.0); MEAN CORPUSCULAR VOLUME 88.5 fL (79-99); MONOCYTES % (AUTO) 15.7 % (3.0-13.0); NEUTROPHILS % (AUTO) 51.6 % (40.0-77.0); PLATELET COUNT (AUTO) 65 K/uL (130-400); RED BLOOD CELL COUNT(AUTO) 3.57 MIL/uL (4.00-5.50); RED CELL DISTRIBUTION WIDTH 19.5 % (11.0-15.5)
[2021-11-23 02:33] LABS: CREATININE 0.7 mg/dL (0.5-1.5); POTASSIUM 3.5 mmol/L (3.5-5.1)
[2021-11-23 02:33] LABS: APPEARANCE,URINE CLEAR (CLEAR); BILIRUBIN,URINE NEGATIVE (NEGATIVE); COLOR,URINE YELLOW (YELLOW); GLUCOSE, URINE (UA) NEGATIVE (NEGATIVE); KETONES,URINE 15 mg/dL (NEGATIVE); LEUKOCYTE ESTERASE ,URINE NEGATIVE (NEGATIVE); NITRATE,URINE NEGATIVE (NEGATIVE); OCCULT BLOOD,URINE NEGATIVE (NEGATIVE); PROTEIN,URINE NEGATIVE (NEGATIVE)
[2021-11-23 02:37] LABS: ALBUMIN 2.7 g/dL (3.5-5.0); TOTAL PROTEIN, SERUM 6.8 g/dL (6.0-8.3)
[2021-11-23 02:38] LABS: BACTERIA,URINE Rare /HPF (None Seen); CALCIUM OXALATE CRYSTALS,UR Moderate /LPF (None Seen); RBC,URINE 0-1 /HPF (0-1); WBC,URINE 0-1 /HPF (0-1)
[2021-11-23 03:06] LABS: BASOPHILS % (MANUAL) 1 % (0-2); EOSINOPHILS % (MANUAL) 5 % (1-6); LYMPHOCYTES % (MANUAL) 24 % (22-44); MAN.DIFF COMMENT-IMPRESSION MANUAL DIFFERENTIAL; MONOCYTES % (MANUAL) 10 % (2-9); SEGMENTED NEUTROPHILS % 60 % (40-70)
[2021-11-23 03:08] LABS: PLATELET MORPHOLOGY COMMENT DECREASED
[2021-11-23 04:53] VITALS: BP 126/62
== END 2021-11-23 04:56 | disposition home or self-care (01) ==
LOC: EDH 00:59
DX: K74.60 Unspecified cirrhosis of liver (principal); R10.9 Unspecified abdominal pain; F32.A Depression, unspecified; E03.9 Hypothyroidism, unspecified; M79.7 Fibromyalgia; M32.9 Systemic lupus erythematosus, unspecified; Z90.49 Acquired absence of other specified parts of digestive tract; Z79.899 Other long term (current) drug therapy; Z98.890 Other specified postprocedural states
CPT/HCPCS: 36415; 74176; 80053; 81001; 82140; 82150; 83690; 85025

== ENCOUNTER 2022-01-08 20:17 | Observation (INO) | payer MEDICARE ==
[~2022-01-08] VITALS: Ht 167.6 cm; Wt 117.0 kg
[~2022-01-08 20:17] MED LIST changes: -OMEP20CA12 PO
[2022-01-08 20:59] LABS: APPEARANCE,URINE SL CLOUDY (CLEAR); BILIRUBIN,URINE MODERATE (NEGATIVE); COLOR,URINE YELLOW (YELLOW); GLUCOSE, URINE (UA) NEGATIVE (NEGATIVE); KETONES,URINE 15 mg/dL (NEGATIVE); LEUKOCYTE ESTERASE ,URINE TRACE (NEGATIVE); NITRATE,URINE NEGATIVE (NEGATIVE); OCCULT BLOOD,URINE NEGATIVE (NEGATIVE); PROTEIN,URINE 100 mg/dL (NEGATIVE)
[2022-01-08 21:12] LABS: BACTERIA,URINE Few /HPF (None Seen); MUCUS,URINE Moderate LPF (None Seen); SQUAMOUS EPITHELIAL CELL,UR Many /HPF (0-2)
[2022-01-08 21:22] LABS: BASOPHILS % (AUTO) 0.6 % (0.0-5.0); EOSINOPHILS % (AUTO) 4.1 % (0.0-8.0); HEMATOCRIT 28.8 % (36-48); MEAN CORPUSCULAR HEMOGLOBIN 28.4 pg (27.0-33.0); MEAN CORPUSCULAR HGB CONC 32.3 g/dL (32.0-36.0); MEAN CORPUSCULAR VOLUME 88.1 fL (79-99); MONOCYTES % (AUTO) 10.9 % (3.0-13.0); NEUTROPHILS % (AUTO) 69.1 % (40.0-77.0); PLATELET COUNT (AUTO) 60 K/uL (130-400); RED BLOOD CELL COUNT(AUTO) 3.27 MIL/uL (4.00-5.50); RED CELL DISTRIBUTION WIDTH 20.6 % (11.0-15.5); WHITE BLOOD COUNT (AUTO) 3.4 K/uL (4.8-10.8)
[2022-01-08 21:36] LABS: CREATININE 0.8 mg/dL (0.5-1.5); POTASSIUM 3.5 mmol/L (3.5-5.1)
[2022-01-08 21:40] LABS: ALBUMIN 2.5 g/dL (3.5-5.0); MAGNESIUM 1.7 mg/dL (1.80-2.40); TOTAL PROTEIN, SERUM 5.9 g/dL (6.0-8.3)
[2022-01-08] MEDS ORDERED: MAGNESIUM 2GM PREMIX 50ML 50 ML IV ONE (22:30)
[2022-01-09] MEDS ORDERED: LACTULOSE 20 GM/30 ML UDCUP PO ONE (01:00)
[2022-01-09] MEDS ORDERED: ACETAMINOPHEN 325 MG TAB PO PRN (01:00)
[2022-01-09] MEDS: LACTULOSE 20 GM/30 ML UDCUP PO SCH ×3 (01:15→12:35)
[2022-01-09 01:16] VITALS: BP 95/37
[2022-01-09] MEDS ORDERED: VANC1PLA9 IV (03:46)
[2022-01-09 04:00] VITALS: BP 107/56
[2022-01-09 05:43] LABS: BASOPHILS % (AUTO) 0.7 % (0.0-5.0); EOSINOPHILS % (AUTO) 5.7 % (0.0-8.0); HEMATOCRIT 26.6 % (36-48); LYMPHOCYTES % (AUTO) 22.1 % (21.0-51.0); MEAN CORPUSCULAR HEMOGLOBIN 28.4 pg (27.0-33.0); MONOCYTES % (AUTO) 13.6 % (3.0-13.0); NEUTROPHILS % (AUTO) 57.9 % (40.0-77.0); PLATELET COUNT (AUTO) 49 K/uL (130-400); RED BLOOD CELL COUNT(AUTO) 2.99 MIL/uL (4.00-5.50); RED CELL DISTRIBUTION WIDTH 20.8 % (11.0-15.5); WHITE BLOOD COUNT (AUTO) 2.8 K/uL (4.8-10.8)
[2022-01-09 05:54] LABS: INR 1.3 (0.85-1.15)
[2022-01-09 05:56] LABS: PARTIAL THROMBOPLASTIN TIME 34.3 SEC (26.3-35.5)
[2022-01-09 06:04] LABS: CREATININE 0.7 mg/dL (0.5-1.5); MAGNESIUM 1.9 mg/dL (1.80-2.40); PHOSPHORUS 3.3 mg/dL (2.5-4.9); POTASSIUM 3.5 mmol/L (3.5-5.1)
[2022-01-09 08:00] VITALS: BP 104/52
[2022-01-09] MEDS ORDERED: FAMOTIDINE 20MG TAB PO SCH (09:00)
[2022-01-09 12:00] VITALS: BP 136/56
[2022-01-09] MEDS ORDERED: CEFTRIAXONE 1G VIAL IVP SCH (12:30)
[2022-01-09] MEDS ORDERED: LACT10SO9 PO (13:16)
[2022-01-09] MEDS ORDERED: RIFA550T PO (13:16)
[2022-01-09] MEDS ORDERED: VANCOMYCIN PROTOCOL PER PHARMACY IV SCH (13:30)
[2022-01-09] MEDS ORDERED: VANCOMYCIN 1.25 GM/250 ML BAG 250 ML IV SCH (14:00)
[2022-01-09 16:00] VITALS: BP 115/61
== END 2022-01-09 17:30 | disposition home or self-care (01) ==
LOC: EDH 20:17 → INTOOBSV 23:04 → EDHIP 23:04 → 3DH 01-09 00:54
PROVIDERS: ADMIT Internal Medicine; ATTEND Internal Medicine
DX: A41.1 Sepsis due to other specified staphylococcus (principal); Z20.822 Contact with and (suspected) exposure to COVID-19; K72.90 Hepatic failure, unspecified without coma; E83.42 Hypomagnesemia; D61.818 Other pancytopenia; D64.9 Anemia, unspecified; D69.6 Thrombocytopenia, unspecified; K74.60 Unspecified cirrhosis of liver; M79.7 Fibromyalgia; I11.0 Hypertensive heart disease with heart failure; I50.32 Chronic diastolic (congestive) heart failure; E66.01 Morbid (severe) obesity due to excess calories; K52.1 Toxic gastroenteritis and colitis; N39.0 Urinary tract infection, site not specified; F32.9 Major depressive disorder, single episode, unspecified; T36.95XA Adverse effect of unspecified systemic antibiotic, initial encounter; Z90.12 Acquired absence of left breast and nipple; Z90.710 Acquired absence of both cervix and uterus; Z91.19 Patient's noncompliance with other medical treatment and regimen; Z98.84 Bariatric surgery status; Z90.49 Acquired absence of other specified parts of digestive tract; Z79.899 Other long term (current) drug therapy; Z98.890 Other specified postprocedural states; Z68.41 Body mass index [BMI] 40.0-44.9, adult
CPT/HCPCS: 96365; 96366 ×2; 99284; 83735 ×2; 80053; 82140 ×2; 83690; 85025 ×2; 87040 ×2; 87880; 87804 ×2; 83605; 81001; 36415 ×2; 87635; 71045; 96375; 96367; 84100; 80048; 85610; 85730; 86850; 86900; 86901; 87046; 82948 ×3; 87324; 82270; 83630; C9803; J3475; G0378; J0696

== ENCOUNTER 2022-01-22 16:05 | Observation (INO) | payer MEDICARE ==
[~2022-01-22] VITALS: Ht 170.2 cm; Wt 113.4 kg
[~2022-01-22 16:05] MED LIST changes: -LEVO150T11 PO; +VANC1PLA9 IV
[2022-01-22 16:56] LABS: BASOPHILS % (AUTO) 0.6 % (0.0-5.0); EOSINOPHILS % (AUTO) 8.3 % (0.0-8.0); HEMATOCRIT 30.3 % (36-48); LYMPHOCYTES % (AUTO) 10.7 % (21.0-51.0); MEAN CORPUSCULAR HEMOGLOBIN 28.7 pg (27.0-33.0); MEAN CORPUSCULAR HGB CONC 32.7 g/dL (32.0-36.0); MEAN CORPUSCULAR VOLUME 87.8 fL (79-99); MONOCYTES % (AUTO) 16.2 % (3.0-13.0); NEUTROPHILS % (AUTO) 63.9 % (40.0-77.0); PLATELET COUNT (AUTO) 70 K/uL (130-400); RED BLOOD CELL COUNT(AUTO) 3.45 MIL/uL (4.00-5.50); RED CELL DISTRIBUTION WIDTH 21.3 % (11.0-15.5); WHITE BLOOD COUNT (AUTO) 3.3 K/uL (4.8-10.8)
[2022-01-22] MEDS ORDERED: 0.9%NACL 1000ML 1,848 ML IV ONE (17:00)
[2022-01-22] MEDS ORDERED: CEFTRIAXONE 1G VIAL IVP ONE (17:00)
[2022-01-22] MEDS ORDERED: ACETAMINOPHEN 500 MG TABLET PO ONE (17:00)
[2022-01-22 17:05] LABS: APPEARANCE,URINE CLOUDY (CLEAR); BILIRUBIN,URINE NEGATIVE (NEGATIVE); COLOR,URINE YELLOW (YELLOW); GLUCOSE, URINE (UA) NEGATIVE (NEGATIVE); KETONES,URINE NEGATIVE (NEGATIVE); LEUKOCYTE ESTERASE ,URINE NEGATIVE Leu/uL (NEGATIVE); NITRATE,URINE NEGATIVE (NEGATIVE); OCCULT BLOOD,URINE NEGATIVE (NEGATIVE); PH,URINE 5.5 (5.0-8.0); PROTEIN,URINE 10 mg/dL (NEGATIVE); UROBILINOGEN,URINE 0.2 mg/dL (0.2-1.0)
[2022-01-22 17:08] LABS: CREATININE 0.9 mg/dL (0.5-1.5); POTASSIUM 3.9 mmol/L (3.5-5.1)
[2022-01-22 17:13] LABS: ALBUMIN 2.5 g/dL (3.5-5.0); CRP QUANTITATIVE 18.2 mg/L (0.00-9.0); TOTAL PROTEIN, SERUM 6.1 g/dL (6.0-8.3)
[2022-01-22 17:18] LABS: BACTERIA,URINE RARE /HPF (None Seen); MUCUS,URINE RARE LPF (None Seen); SQUAMOUS EPITHELIAL CELL,UR MOD /HPF (0-2)
[2022-01-22] MEDS ORDERED: LACTULOSE 20 GM/30 ML UDCUP PO ONE (18:30)
[2022-01-22 20:11] VITALS: BP 107/51
== END 2022-01-22 20:25 | disposition home or self-care (01) ==
LOC: EDH 16:05 → EDHIP 19:14
PROVIDERS: ADMIT Internal Medicine; ATTEND Internal Medicine
DX: R78.81 Bacteremia (principal); Z20.822 Contact with and (suspected) exposure to COVID-19; E86.0 Dehydration; K74.60 Unspecified cirrhosis of liver; K29.70 Gastritis, unspecified, without bleeding; K72.90 Hepatic failure, unspecified without coma; K56.609 Unspecified intestinal obstruction, unspecified as to partial versus complete obstruction; D69.6 Thrombocytopenia, unspecified; I10 Essential (primary) hypertension; M79.7 Fibromyalgia; M32.9 Systemic lupus erythematosus, unspecified; D61.818 Other pancytopenia; F32.9 Major depressive disorder, single episode, unspecified; I85.00 Esophageal varices without bleeding; K42.9 Umbilical hernia without obstruction or gangrene; K52.9 Noninfective gastroenteritis and colitis, unspecified; K76.6 Portal hypertension; Z85.3 Personal history of malignant neoplasm of breast; Z90.12 Acquired absence of left breast and nipple; Z90.710 Acquired absence of both cervix and uterus; Z98.84 Bariatric surgery status; Z90.49 Acquired absence of other specified parts of digestive tract
CPT/HCPCS: 99284; 74176; 96374; 96361; 71045; 87635; 82550; 84484; 80053; 82140; 85025; 87040 ×2; 87880; 87804 ×2; 83605; 86140; 81001; 36415; G0378; C9803; J0696

== ENCOUNTER 2022-03-03 17:47 | Emergency (ER) | payer MEDICARE ==
[~2022-03-03] VITALS: Ht 167.6 cm; Wt 113.4 kg
[2022-03-03 17:54] VITALS: BP 120/53
[2022-03-03 18:16] LABS: BASOPHILS % (AUTO) 0.6 % (0.0-5.0); EOSINOPHILS % (AUTO) 3.8 % (0.0-8.0); HEMATOCRIT 31.6 % (36-48); LYMPHOCYTES % (AUTO) 23.1 % (21.0-51.0); MEAN CORPUSCULAR HEMOGLOBIN 29.5 pg (27.0-33.0); MEAN CORPUSCULAR VOLUME 92.4 fL (79-99); MONOCYTES % (AUTO) 9.7 % (3.0-13.0); NEUTROPHILS % (AUTO) 62.5 % (40.0-77.0); PLATELET COUNT (AUTO) 67 K/uL (130-400); RED BLOOD CELL COUNT(AUTO) 3.42 MIL/uL (4.00-5.50); RED CELL DISTRIBUTION WIDTH 21.4 % (11.0-15.5); WHITE BLOOD COUNT (AUTO) 3.2 K/uL (4.8-10.8)
[2022-03-03 18:35] LABS: ALBUMIN 2.9 g/dL (3.5-5.0); CREATININE 0.9 mg/dL (0.5-1.5); POTASSIUM 3.8 mmol/L (3.5-5.1); TOTAL PROTEIN, SERUM 6.3 g/dL (6.0-8.3)
[2022-03-03 19:59] LABS: APPEARANCE,URINE CLEAR (CLEAR); BILIRUBIN,URINE NEGATIVE (NEGATIVE); COLOR,URINE LIGHT-YELLOW (YELLOW); GLUCOSE, URINE (UA) NEGATIVE (NEGATIVE); KETONES,URINE NEGATIVE (NEGATIVE); LEUKOCYTE ESTERASE ,URINE NEGATIVE Leu/uL (NEGATIVE); NITRATE,URINE NEGATIVE (NEGATIVE); OCCULT BLOOD,URINE NEGATIVE (NEGATIVE); PH,URINE 6.5 (5.0-8.0); PROTEIN,URINE NEGATIVE (NEGATIVE); UROBILINOGEN,URINE 0.2 mg/dL (0.2-1.0)
[2022-03-03] MEDS ORDERED: LIDOCAINE HCL 2% VISCOUS 15 ML UDCUP PO ONE (20:00)
[2022-03-03] MEDS ORDERED: MAG/ALUM/SIMETH 30 ML UDCUP PO ONE (20:00)
[2022-03-03] MEDS ORDERED: FAMOTIDINE 20MG VIAL IV ONE ×2 (20:00→20:05)
[2022-03-03] MEDS ORDERED: LIDOCAINE HCL 2% VISCOUS 15 ML UDCUP ONE (20:05)
[2022-03-03] MEDS ORDERED: MAG/ALUM/SIMETH 30 ML UDCUP ONE (20:05)
[2022-03-03] MEDS ORDERED: FAMOTIDINE 20MG TAB ONE (20:14)
[2022-03-03] MEDS ORDERED: PANT40TA55 PO (21:05)
[2022-03-03] MEDS ORDERED: TRAM50TA2 PO (21:05)
[2022-03-03] MEDS ORDERED: ONDA-104 PO (21:05)
== END 2022-03-03 21:35 | disposition home or self-care (01) ==
LOC: EDH 17:47
DX: K27.9 Peptic ulcer, site unspecified, unspecified as acute or chronic, without hemorrhage or perforation (principal); I10 Essential (primary) hypertension; K21.9 Gastro-esophageal reflux disease without esophagitis; E03.9 Hypothyroidism, unspecified; M32.9 Systemic lupus erythematosus, unspecified; I11.9 Hypertensive heart disease without heart failure; Z90.49 Acquired absence of other specified parts of digestive tract; Z90.710 Acquired absence of both cervix and uterus; Z98.84 Bariatric surgery status; Z90.12 Acquired absence of left breast and nipple
CPT/HCPCS: 99285; 84484; 80053; 83690; 85025; 81003; 36415; 74176; 93005; J3490